=== PATIENT | female | born 1965 | race Two or more races ===

== ENCOUNTER 2020-04-12 07:19 | Outpatient (REF) | payer OTHER, SELFPAY ==
[2020-04-12 08:48] LABS: Hemoglobin 14.4 g/dl (12.0-16.0); Mean Corpuscular Hemoglobin 28.1 pg (27.0-33.0); Mean Corpuscular Volume 87.7 fL (80-98); Mean Platelet Volume 11.4 fL (9.4-12.3); Platelet Count 354 X10*3/uL (160-400); Red Blood Count 5.13 X10*6/uL (4.20-5.50); Red Cell Distribution Width 12.8 % (11.0-16.0); White Blood Count 9.3 X10*3/uL (4.8-10.8)
[2020-04-12 09:23] LABS: Thyroid Stimulating Hormone 5.23 uIU/mL (0.32-4.0)
[2020-04-12 09:37] LABS: Alanine Aminotransferase 12 U/L (0-31); Albumin Level 4.6 g/dL (3.5-5.0); Alkaline Phosphatase 99 U/L (39-117); Anion Gap 17 (12-20); Aspartate Amino Transferase 19 U/L (5-31); Bilirubin Direct < 0.2 mg/dL (0.0-0.5); Bilirubin Total 0.2 mg/dL (0.0-1.0); Blood Urea Nitrogen 14 mg/dL (9-16); Calcium 9.6 mg/dL (8.4-10.2); Carbon Dioxide 23 mmol/L (22-29); Chloride 103 mmol/L (96-108); Cholesterol 284 mg/dL; Estimated Glomerular Filt Rate > 60; Glucose Random 89 mg/dL (60-115); HDL Cholesterol 82 mg/dL; LDL Cholesterol Calculated 187 mg/dl; Potassium 4.5 mmol/L (3.3-5.1); Sodium 138 mmol/L (135-145); Total Protein 8.1 g/dL (6.5-8.0); Triglycerides 76 mg/dL
== END 2020-04-12 07:20 | disposition home or self-care (01) ==
LOC: HO.LAB 07:19
PROVIDERS: PCP Internal Medicine; Visit Provider Internal Medicine
DX: E03.9 Hypothyroidism, unspecified (principal); K21.9 Gastro-esophageal reflux disease without esophagitis
CPT/HCPCS: 36415; 80048; 80061; 80076; 84443; 85027

== ENCOUNTER 2020-06-20 14:47 | Outpatient (REF) | payer OTHER, SELFPAY ==
--- NOTE | ~2020-06-20 | MM_ITS ---
EXAMINATION: MM DIAGNOSTIC DIGITAL BREAST TOMOSYNTHESIS, BILATERAL CLINICAL INFORMATION: Due for yearly. Probable benign asymmetric density 3:00 right breast initially noted in 2019. The lifetime risk of breast cancer based on the Tyrer-Cuzick Model is 8%. COMPARISON: Mammography: 02/23/2019, 05/03/2018, 04/21/2018 (BI-RADS 0); targeted right breast ultrasound 05/03/2018 TECHNIQUE: Digital breast tomosynthesis is performed in both the craniocaudal and mediolateral oblique views along with computer-aided detection (CAD). Synthesized 2D images are generated from the tomosynthesis. FINDINGS: There are scattered areas of fibroglandular density (ACR BI-RADS breast composition Category b). Breast tissue composition borders on heterogeneously dense. Parenchymal pattern is similar to prior exam. There is no developing density or interval mass or architectural abnormality. The asymmetric density 3:00 right breast is less conspicuous. There are no abnormal calcifications. Biopsy clip marker again seen 12:00 right breast. Results are provided to the patient at time of visit by the technologist. MM/MM tomosynthesis diagnostic BI IMPRESSION: No significant changes from prior studies. ASSESSMENT: BI-RADS 2: Benign RECOMMENDATION: Routine annual mammography screening. This patient's information was entered into a reminder system with a target due date for their next mammogram.
== END 2020-06-20 14:48 | disposition home or self-care (01) ==
LOC: HO.MAMMO 14:47
PROVIDERS: PCP Internal Medicine; Visit Provider Internal Medicine
DX: R92.1 Mammographic calcification found on diagnostic imaging of breast (principal)
CPT/HCPCS: 77062; 77066

== ENCOUNTER → 2020-11-25 14:47 | Outpatient (BNVA) | payer OTHER, SELFPAY | PROVIDERS: PCP Internal Medicine; Visit Provider Nurse Practitioner | DX: Z12.11 Encounter for screening for malignant neoplasm of colon (principal) | CPT/HCPCS: Q3014 ==

== ENCOUNTER 2021-02-06 07:57 | Day surgery (SDC) | payer OTHER, SELFPAY ==
--- NOTE | 2021-02-05 11:04 | HO.ANESPROP2 ---
Documented by User: Melissa John NP 02/05/21 11:05 HPI - Anesthesia Eval Consult details Narrative: 55yo F for Colonoscopy (h/o PTSD with SA) [facility] Active Problems Active Problems: All Active Problems (Updated 11/25/20 @ 15:38 by IAIN Tejada) Colon cancer screening (Acute) Generalized anxiety disorder (Acute) Bipolar illness (Acute) Posttraumatic stress disorder (Acute) Screening for cervical cancer (Acute) Screening for colon cancer (Acute) Acquired hypothyroidism (Acute) GERD (gastroesophageal reflux disease) (Acute) Past Medical History Medical History (Updated 11/25/20 @ 15:38 by IAIN Tejada) Acquired hypothyroidism Bipolar illness Generalized anxiety disorder GERD (gastroesophageal reflux disease) Posttraumatic stress disorder Family History Family History Father HIV (human immunodeficiency virus infection) CKD (chronic kidney disease) Substance use disorder Mother Hepatitis C Bilateral cataracts Maternal Grandmother Diabetes CVD (cardiovascular disease) Brother No problems noted. Brother No problems noted. Brother No problems noted. Sister No problems noted. Other Mental health disorder Surgical History Surgical History History of eye surgery History of foot surgery Social History Social History Housing: Condominium Alcohol intake: current Alcohol intake frequency: a few times a month Patient Tobacco Use Status: Former Tobacco user Advance Directives: No Advance Directives Information Provided: Yes service: No Current occupational status: disabled Meds Allergies Allergy/AdvReac Type Severity Reaction Status Date / Time hair dye Allergy Unknown Unknown Verified 11/25/20 15:01 Home Medications Medication Instructions Recorded Confirmed Last Taken Type hydroxyzine pamoate 50 mg capsule 50 mg PO TID 03/31/20 09/02/20 Unknown History oxcarbazepine 300 mg tablet 300 mg PO BID 03/31/20 09/02/20 Unknown History quetiapine 400 mg tablet 400 mg PO BEDTIME 03/31/20 09/02/20 Unknown History quetiapine 50 mg tablet 0 mg PO 03/31/20 09/02/20 Unknown History sertraline 100 mg tablet 0 mg PO 03/31/20 09/02/20 Unknown History lorazepam 1 mg tablet 1 mg PO TID 09/02/20 09/02/20 Unknown History Exam Exam Date and Time: February 05, 2021 1104 Assessment and Plan Assessment Anesthesia Assessment: Chart Reviewed Documented by User: Janak Yeager MD 02/06/21 08:15 [facility] Past Medical History Medical History (Updated 11/25/20 @ 15:38 by IAIN Tejada) Acquired hypothyroidism Bipolar illness Generalized anxiety disorder GERD (gastroesophageal reflux disease) Posttraumatic stress disorder Family History Family History Father HIV (human immunodeficiency virus infection) CKD (chronic kidney disease) Substance use disorder Mother Hepatitis C Bilateral cataracts Maternal Grandmother Diabetes CVD (cardiovascular disease) Brother No problems noted. Brother No problems noted. Brother No problems noted. Sister No problems noted. Other Mental health disorder Family history of problems with anesthesia: No Surgical History Surgical History History of eye surgery History of foot surgery History of Problems with Anesthesia: No Social History [facility] History [facility] Alcohol intake: current Alcohol intake frequency: a few times a month Patient Tobacco Use Status: Former Tobacco user Advance Directives: No Advance Directives Information Provided: Yes service: No Current occupational status: disabled Meds Allergies Allergy/AdvReac Type Severity Reaction Status Date / Time hair dye Allergy Unknown Unknown Verified 11/25/20 15:01 Home Medications Medication Instructions Recorded Confirmed Last Taken Type hydroxyzine pamoate 50 mg capsule 50 mg PO TID 03/31/20 09/02/20 Unknown History oxcarbazepine 300 mg tablet 300 mg PO BID 03/31/20 09/02/20 Unknown History quetiapine 400 mg tablet 400 mg PO BEDTIME 03/31/20 09/02/20 Unknown History quetiapine 50 mg tablet 0 mg PO 03/31/20 09/02/20 Unknown History sertraline 100 mg tablet 0 mg PO 03/31/20 09/02/20 Unknown History lorazepam 1 mg tablet 1 mg PO TID 09/02/20 09/02/20 Unknown History Exam Airway Mallampati Class: II TM Dist: >3cm Neck ROM: Full Assessment and Plan Final Anesthetic Review Family History of Problems with Anesthesia: No History of Problems with Anesthesia: No NPO: Yes ASA Class: II Final Preanesthetic Review: No Changes in Pt Med Stat, Meds/Allgs Chart Reviewed, Consent Obtained/Reviewed and Anes Risks/Benef Reviewed Patient Risk: Intermediate Procedure Risk: Low Anesthetic Plan Anesthetic Plan: MAC: Disposition: Standard PACU
[2021-02-06 08:37] VITALS: BP 124/82; PULSE 96; RESP 16; TEMP 36.4; O2SAT 97; BMI 19.9
[2021-02-06] MEDS: Lactated Ringers 1,000 ML 100 ML IVCONT (08:46)
--- NOTE | 2021-02-06 09:19 | MHC.SHP ---
Pre-Procedural Eval Section A Date of Service: 02/06/21 The patient is an INPATIENT: No The History & Physical has been completed within 30 days and I have reviewed it.: No Section B Chief Complaint: Screening Details of Present Illness: Colon cancer screening Relevant Family History (Specify if Yes): No Relevant Social History: Tobacco Use (Former smoker) Present Medications: see Short Stay Collaborative assessment Medical History: Significant History (Acquired hypothyroidism Bipolar illness Generalized anxiety disorder GERD (gastroesophageal reflux disease) Posttraumatic stress disorder) History of Previous Operations: Relevant previous surgery/procedure and date(s) (History of eye surgery History of foot surgery) Allergies: Allergies Allergy/AdvReac Type Severity Reaction Status Date / Time hair dye Allergy Unknown Unknown Verified 11/25/20 15:01 Review of Systems Sugical H&P ROS: Negative: Constitution, Cardiovascular, Respiratory and Gastrointestinal Exam Surgical H&P Exam: Normal: Heart, Normal: Lungs, Normal: Extremities and Normal: Abdomen Plan Diagnosis/Plan: Unchanged I have reviewed the history and physical and performed a pertinent physical examination on my patient. No changes have occurred unless specified.
--- NOTE | 2021-02-06 09:26 | P.OP_ITS ---
Operative Note Operative Note Date of Service: 02/06/21 Narrative: Pre-op diagnosis:?Colon cancer screening Post-op diagnosis:?other (Colon polyps, diverticulosis) Procedure:? COLONOSCOPY TILL CECUM WITH SNARE POLYPECTOMY Consent: Indications for the procedure and potential complications of bleeding, perforation, reaction to medications and missed diagnosis were discussed with the patient and informed consent was obtained. Instrument: Olympus PCF H 190 L variable stiffness pediatric colonoscope Monitoring: Vital signs and clinical assessment, intermittent blood pressure monitoring, continuous EKG monitoring, Pulse oximetry and Carbon Dioxide monitoring were done throughout the procedure. Colon withdrawl time was 25 minutes. Procedure: The patient was placed in the left lateral decubitis position and pre-procedure medications were administered. After a digital rectal examination of the ano-rectum, the video colonoscope was inserted into the rectum and advanced through the colon to the cecum. The colonoscope was slowly withdrawn in a retrograde panoramic fashion and the colon mucosa was carefully examined including a retroflexed view of the rectum. Findings and interventions are described below. Procedure Difficulty: Without difficulty Findings: Terminal Ileum: Not evaluated Cecum:? An 8 to 10 mm sessile polyp adjacent to the appendicular orifice - removed with a cold snare. Ascending Colon:? Normal Transverse Colon:? A 5-6 mm sessile polyp removed with a cold snare. A 12-15 mm sessile polyp removed with hot snare. Descending Colon:? Moderate diverticulosis Sigmoid Colon:? Moderate diverticulosis Rectum:? Normal Ano-rectum:? Normal Colon preparation:? Good after copious irrigation and fair in the right colon with some adherent stools Impression and Post Procedure Diagnosis: Colonoscopy Findings: Three small to medium sized polyps removed Moderate diverticulosis seen in the left colon Plan: Await pathology results Patient has an appointment on 02/19/21 in the GI [facility] with? Nohelia Pires NP. Repeat Colonoscopy interval based on path results - in 3 years if polyps are adenomatous and due to fair prep in the right colon Above findings were reviewed with the patient and colon polyps and diverticulosis handouts were given in the discharge area Surgeon:?Steve Forde MD Anesthesia:?GARCIA (Yahaira Holcomb CRNA) Was an Methods Time Analyst used for this Procedure?:?Yes Methods Time Analyst:?Caridad Still Estimated blood loss (mL):?0 Pathology:?other (A. cecal polyp? B. transverse colon polyps (2)) Condition:?stable Disposition:?PACU
[2021-02-06 10:09] VITALS: BP 98/59; PULSE 82; RESP 18; TEMP 36.8; O2SAT 99
[2021-02-06 10:24] VITALS: BP 109/66; PULSE 94; RESP 18; TEMP 36.8; O2SAT 100
== END 2021-02-06 11:28 | disposition home or self-care (01) ==
PROVIDERS: PCP Internal Medicine; Visit Provider Internal Medicine Gastroenterology
PROC: 0DJD8ZZ Inspection of Lower Intestinal Tract, Via Natural or Artificial Opening Endoscopic (ICD-10-PCS; CPT 45378; principal; 2021-02-06 09:00)
DX: Z12.11 Encounter for screening for malignant neoplasm of colon (principal); D12.0 Benign neoplasm of cecum; D12.3 Benign neoplasm of transverse colon; K57.30 Diverticulosis of large intestine without perforation or abscess without bleeding; E03.9 Hypothyroidism, unspecified; F31.9 Bipolar disorder, unspecified; F43.10 Post-traumatic stress disorder, unspecified; F41.1 Generalized anxiety disorder; Z87.891 Personal history of nicotine dependence
CPT/HCPCS: 45385; 88305

== ENCOUNTER 2022-02-01 11:30 | Outpatient (REF) | payer OTHER, SELFPAY ==
[2022-02-01 12:39] LABS: Hematocrit 39.2 % (37.0-47.0); Hemoglobin 12.9 g/dl (12.0-16.0); Mean Corpuscular HGB Conc 32.9 g/dl (31.0-35.0); Mean Corpuscular Hemoglobin 29.1 pg (27.0-33.0); Mean Corpuscular Volume 88.3 fL (80.0-98.0); Mean Platelet Volume 10.6 fL (9.4-12.3); Platelet Count 330 X10*3/uL (160-400); Red Blood Count 4.44 X10*6/uL (4.20-5.50); Red Cell Distribution Width 13.3 % (11.0-16.0); White Blood Count 9.4 X10*3/uL (4.8-10.8)
[2022-02-01 13:25] LABS: Alanine Aminotransferase 12 U/L (0-31); Albumin Level 4.5 g/dL (3.5-5.0); Alkaline Phosphatase 105 U/L (39-117); Anion Gap 13 (12-20); Aspartate Amino Transferase 19 U/L (5-31); Bilirubin Direct < 0.2 mg/dL (0.0-0.5); Bilirubin Total 0.2 mg/dL (0.0-1.0); Blood Urea Nitrogen 13 mg/dL (9-16); Calcium 9.5 mg/dL (8.4-10.2); Carbon Dioxide 26 mmol/L (22-29); Chloride 106 mmol/L (96-108); Cholesterol 250 mg/dL; Estimated Glomerular Filt Rate > 60; Glucose Random 82 mg/dL (60-115); HDL Cholesterol 103 mg/dL; LDL Cholesterol Calculated 132 mg/dl; Potassium 4.1 mmol/L (3.3-5.1); Sodium 141 mmol/L (135-145); Total Protein 7.6 g/dL (6.5-8.0); Triglycerides 77 mg/dL
[2022-02-01 13:53] LABS: Thyroid Stimulating Hormone 9.91 uIU/mL (0.32-4.0)
== END 2022-02-01 11:31 | disposition home or self-care (01) ==
LOC: HO.LAB 11:30
PROVIDERS: PCP Internal Medicine; Visit Provider Internal Medicine
DX: E03.9 Hypothyroidism, unspecified (principal); F31.9 Bipolar disorder, unspecified
CPT/HCPCS: 36415; 80048; 80061; 80076; 84443; 85027

== ENCOUNTER 2022-05-31 13:47 | Outpatient (REF) | payer OTHER, SELFPAY ==
--- NOTE | ~2022-05-31 | MM_ITS ---
EXAMINATION: MM SCREENING DIGITAL BREAST TOMOSYNTHESIS, BILATERAL CLINICAL INFORMATION: Screening. Asymptomatic. The lifetime risk of breast cancer based on the Tyrer-Cuzick Model is 10%. COMPARISON: Mammography: 06/20/2020, 02/23/2019, 05/03/2018, right breast ultrasound 05/03/2018 TECHNIQUE: Digital breast tomosynthesis is performed in both the craniocaudal and mediolateral oblique views along with computer-aided detection (CAD). Synthesized 2D images are generated from the tomosynthesis. FINDINGS: There are scattered areas of fibroglandular density (ACR BI-RADS breast composition Category b). There are scattered bilateral parenchymal asymmetries similar to prior studies. Oval asymmetry mid central 3:00 right breast is similar to 2019. Neither breast shows developing density or interval architectural abnormality. No abnormal calcifications. There are bilateral vascular calcifications. Biopsy clip marker again noted central upper outer right breast. The axilla are unremarkable. The skin contours are smooth. MM/MM tomosynthesis screening BI IMPRESSION: No significant changes from prior studies. ASSESSMENT: BI-RADS 2: Benign RECOMMENDATION: Routine annual mammography screening. This patient's information was entered into a reminder system with a target due date for their next mammogram.
== END 2022-05-31 13:48 | disposition home or self-care (01) ==
LOC: HO.MAMMO 13:47
PROVIDERS: PCP Internal Medicine; Visit Provider Internal Medicine
DX: Z12.31 Encounter for screening mammogram for malignant neoplasm of breast (principal)
CPT/HCPCS: 77063; 77067

== ENCOUNTER 2022-10-05 22:33 | Inpatient (IN) | payer OTHER, SELFPAY ==
--- NOTE | ~2022-10-05 | XR_ITS ---
EXAMINATION: XR CHEST CLINICAL INFORMATION: Altered mental status. COMPARISON: Chest radiograph 09/07/2016. TECHNIQUE: Frontal view of the chest was obtained. FINDINGS: Normal appearance of the cardiomediastinal silhouette. No focal airspace opacity, pleural effusion or pneumothorax. No acute osseous findings. The visualized upper abdomen is within normal limits. XR/XR chest 1V IMPRESSION: No acute cardiopulmonary findings.
--- NOTE | ~2022-10-05 | CT_ITS ---
EXAMINATION: CT CHEST WITHOUT CONTRAST CLINICAL INFORMATION: Hypoxia COMPARISON: None available. TECHNIQUE: Multidetector volumetric CT imaging of the chest was done. Axial MIP volume rendering provided. Sagittal and coronal reformatted images were obtained. This CT examination was performed using dose optimization techniques as appropriate, variously including the following: *Automated exposure control *Adjustment of mA and/or kV according to patient size (this includes techniques or standardized protocols for targeted exams where dose is matched to indication/reason for exam; i.e. extremities or head) *Use of iterative reconstruction technique DLP: 133 mGy-cm FINDINGS: LUNGS: Dense dependent consolidation in the lower lobes bilaterally with surrounding groundglass opacities. There are a few patchy nodular opacities posterior lingula and dependent aspects of the upper lobes bilaterally following a centrilobular distribution. Findings suggestive of aspiration bronchiolitis and pneumonia (lower lobes). There is a 5 mm nodule in the right upper lobe laterally as seen on series 5, image 103 which is unrelated to this infectious process. MEDIASTINUM: Normal heart size. Trace pericardial effusion. Great vessels normal caliber. Coronary calcifications present. No mediastinal or hilar lymphadenopathy. CORONARY ARTERY CALCIFICATION: Present. PLEURA: There is no pleural effusion. No pleural mass or thickening. AXILLA: No lymphadenopathy. UPPER ABDOMEN: Unremarkable. OSSEOUS STRUCTURES: No acute or suspicious osseous abnormality. CT/CT chest wo IV con IMPRESSION: * Findings compatible with aspiration bronchiolitis / pneumonia as described. * There is a 5 mm nodule in the right upper lobe laterally which is unrelated to the infectious process. Per the 2017 revised Fleischner Society guidelines, no routine follow up is necessarily required in low-risk patients, and consideration of 12-month followup CT is recommended for patients at high-risk for the development of pulmonary neoplasm.
[2022-10-05 22:52] VITALS: BP 111/66; BP 126/70; PULSE 112; RESP 26; TEMP 32.4; O2SAT 100; O2SAT 90; BMI 20.1
--- NOTE | 2022-10-05 23:15 | ECG_ITS ---
Test Reason : OD Blood Pressure : / mmHG Vent. Rate : 109 BPM Atrial Rate : 109 BPM P-R Int : 094 ms QRS Dur : 066 ms QT Int : 416 ms P-R-T Axes : 000 109 188 degrees QTc Int : 560 ms Artifact in tracing Sinus tachycardia Rightward axis Nonspecific ST and T wave abnormality Abnormal ECG When compared with ECG of 11-JUN-2017 06:19, QRS axis Shifted right Nonspecific T wave abnormality, worse in Anterolateral leads QT difficult to assess due to artifact Referred By: Tequila Stephen Electronically Signed By:CADEN ESTEBAN
--- NOTE | 2022-10-05 23:17 | ED.GENADULT ---
HPI - General Adult General Chief complaint: Overdose Stated complaint: Overdose Time Seen by Provider: 10/05/22 22:34 Source: EMS Mode of arrival: EMS Limitations: altered mental status History of Present Illness HPI narrative: patient comes emergency room via ambulance after an overdose. According to EMS, the patient's boyfriend noted that the patient was unresponsive at the neighbor's house, he carried her back home. At home, he gave her 4 mg of Narcan, then called EMS. EMS reports that the patient's oxygen saturation has been in the high 80s/ low 90s. in the ambulance per EMS, patient started posturing upper extremities and neck, she was given 2 mg IM of Versed. On arrival to the ED, patient's oxygen saturation in the mid 60s on 4 L of oxygen, patient was given 4 mg intranasal Narcan, and was started on OxyMask, oxygen saturation improved to 100%. Patient still altered, unable to give any history. Related Data Home Medications Medication Instructions Recorded Confirmed hydroxyzine pamoate 50 mg capsule 50 mg PO TID 03/31/20 10/06/22 oxcarbazepine 300 mg tablet 300 mg PO BID 03/31/20 10/06/22 quetiapine 400 mg tablet 400 mg PO BEDTIME 03/31/20 10/06/22 quetiapine 50 mg tablet (Seroquel) 50 mg PO DAILY 03/31/20 10/06/22 sertraline 100 mg tablet (Zoloft) 100 mg PO DAILY 03/31/20 10/06/22 lorazepam 1 mg tablet 1 mg PO TID 09/02/20 10/06/22 Previous Rx's Medication Instructions Recorded commode #1 ea 04/15/21 gabapentin 100 mg capsule 100 mg PO BID #180 caps 03/28/22 levothyroxine 75 mcg tablet 75 mcg PO DAILY #90 tabs 03/28/22 omeprazole 20 mg capsule,delayed 20 mg PO DAILY #90 caps 03/28/22 release Allergies Allergy/AdvReac Type Severity Reaction Status Date / Time hair dye Allergy Unknown Unknown Verified 10/29/21 10:57 Review of Systems Review of Systems: Yes Unobtainable due to mental status PMFSH Past Medical History Medical History Acquired hypothyroidism Bipolar illness Generalized anxiety disorder GERD (gastroesophageal reflux disease) Posttraumatic stress disorder Surgical History History of eye surgery History of foot surgery Family History Family History Father HIV (human immunodeficiency virus infection) CKD (chronic kidney disease) Substance use disorder Mother Hepatitis C Bilateral cataracts Maternal Grandmother Diabetes CVD (cardiovascular disease) Brother No problems noted. Brother No problems noted. Brother No problems noted. Sister No problems noted. Other Mental health disorder Social History Social History Housing: Condominium Alcohol intake: current Alcohol intake frequency: a few times a week Patient Tobacco Use Status: Former Tobacco user Quit Date: quit 13 years ago Smoked in Last 30 Days: Yes e-Cigarette/Vaping Use: Never Used Second Hand Smoke Exposure: No Use of substances other than those prescribed or required for medical reasons: Yes Substance Use Type: Crack/Cocaine, Heroin and Marijuana Advance Directives: No Advance Directives Information Provided: No Patient : No service: No Current occupational status: disabled Cognitive needs: Yes (walker) Hearing needs: No Vision needs: No Physical Exam ED Vital Signs: Vital Signs - 24 hr 10/05/22 22:52 10/05/22 23:52 10/06/22 00:21 Temperature 90.4 F L 96.1 F L 97.2 F Pulse Rate 112 H 100 103 H Respiratory Rate 26 H 20 20 Blood Pressure 111/66 117/80 106/69 Pulse Oximetry 100 100 93 Oxygen Delivery Method Oxymask Oxymask Oxymask Oxygen Flow Rate 10 10 10/06/22 01:53 10/06/22 02:10 10/06/22 04:00 Temperature 98.1 F 98.1 F 97.9 F Pulse Rate 114 H 103 H 99 Respiratory Rate 20 16 18 Blood Pressure 105/72 103/74 93/66 Pulse Oximetry 93 91 L 93 Oxygen Delivery Method Room Air Nasal Cannula Nasal Cannula Oxygen Flow Rate 4 4 4 10/06/22 03:32 10/06/22 02:36 10/06/22 06:00 Temperature 98.1 F 98.2 F 98.8 F Pulse Rate 105 H 103 H 100 Respiratory Rate 18 17 18 Blood Pressure 106/77 99/71 119/86 Pulse Oximetry 92 92 94 Oxygen Delivery Method Nasal Cannula Nasal Cannula Nasal Cannula Oxygen Flow Rate 5 5 4 BMI result Body Mass Index 20.1 Const Other: Appearance: Alert. Moaning and screaming, altered Eyes: Pupils equal, round and reactive to light. ENT: Pharynx normal. Neck: Normal inspection. Neck supple. No lymph nodes noted. No crepitus CVS: Normal heart rate and rhythm. Pulses normal. Normal S1 and S2 Respiratory: No respiratory distress. Breath sounds normal. No Wheezing. No rales Abdomen: Soft and nontender. No rigidity. No distention. Skin: cold to touch Extremities: No lower extremity edema. No Lacerations. No Rash Neuro: moving all extremities Psych: altered, agitated, screaming Course Course Course Narrative: - it was noted that the patient's rectal temperature is 90.4 degrees F. Patient is now on a Víctor Hugger - all of patient's labs pending Medications Administered Discontinued Medications Generic Name Dose Route Start Last Admin Trade Name Lloydq PRN Reason Stop Dose Admin Sodium Chloride 2,000 mls @ 999 mls/hr 10/05/22 23:15 10/06/22 01:40 Ns IVCONT 10/06/22 01:15 Infused .Q2H1M ONE Infusion Piperacillin Sod/Tazobactam 50 mls @ 100 mls/hr 10/05/22 23:53 10/06/22 00:45 Sod 3.375 gm/ Sodium Chloride IV 10/06/22 00:22 Infused ONCE ONE Infusion Sodium Chloride 1,000 mls @ 999 mls/hr 10/06/22 01:23 10/06/22 02:35 Ns IVCONT 10/06/22 02:23 Infused .Q1H1M ONE Infusion Ondansetron HCl 4 mg 10/05/22 23:23 10/05/22 23:42 Ondansetron Hcl 4 Mg/2 Ml Vial IVPUSH 10/05/22 23:24 4 mg ONCE ONE Administration Medical Decision Making Medical Decision Making [facility] Narrative: patient was giving a total of 8 mg of Narcan and 2 mg IM of Versed. - Patient is more alert, awake, - at 11 53, patient's lab results became available, patient's lactic acid is 11. 5, patient's white blood cell count is 18. there is no obvious source of infection. patient is empirically being treated with IV fluids and Zosyn. It is possible the patient may have had as seizure? it is possible the patient was hypoxic for a prolonged period of time before EMS arrived? troponin elevation likely secondary to hypoxia - Patient came in hypothermic, rectal temperature 90.4. patient's clothes were wet, likely causing hypothermia. my interpretation of EKG: Sinus tachycardia, heart rate 109, no ST segment depression or elevation, no T-wave inversion, QTC 560. Poor quality EKG, patient shivering -patient's troponin 2 nearly doubled to 258.4. Patient has no chest pain. This is likely from demand ischemia from patient being hypoxic due to the overdose -similarly, elevated lactic acid likely secondary to being hypoxic, with IV fluids, patient's lactic acid returned to normal, sepsis not suspected. -we were able to wean the patient off the OxyMask, now on 2 L nasal cannula. -discussed the patient with Dr. Dickinson, patient is saturating 90% on 4 L while sleeping. Patient is still fairly somnolent. We will wait couple more hours until the patient is more awak. If patient is hypoxic while awake, we will admit the patient. Otherwise, we will allow the patient to metabolize to freedom and then discharged. -patient fully awake, states this was an accident, denies suicidal homicidal ideation. -while fully awake, patient's oxygen saturation is 85% on room air. Patient is 4 L of oxygen to keep an O2 of 95%. -I discussed this with Dr. Dikcinson, it may be possible that patient aspirated although chest x-ray was negative. We will get a CT scan of the chest and admit the patient 07:50: CT scan of the chest shows possible aspiration pneumonia. Patient has already been treated with at least 30 mL/kilograms and Zosyn. Differential Diagnosis Differential Diagnoses: The differential diagnosis associated with the presentation includes ( Drug overdose, hypoxia, infection) Admission/Observation Consideration of admission/observation: Escalation of care including admission/observation considered ( patient's labs are significantly elevated, lactic acid, white blood cell count, no source of infection, patient being treated empirically with antibiotics, admission has been considered) Consult Healthcare Provider Management of the patient was discussed with: Hospitalist Lab Data MDM Lab Attestation statement: I reviewed the patient's lab results. 10/06/22 00:14 10/06/22 00:14 Labs: Lab Results 10/05/22 10/05/22 10/05/22 Range/Units 23:30 23:34 23:34 WBC (4.8-10.8) X10*3/uL RBC (4.20-5.50) X10*6/uL Hgb (12.0-16.0) g/dl Hct (37.0-47.0) % MCV (80.0-98.0) fL MCH (27.0-33.0) pg MCHC (31.0-35.0) g/dl RDW (11.0-16.0) % Plt Count (160-400) X10*3/uL MPV (9.4-12.3) fL Immature Gran % (Auto) (0.0-0.4) % Neut % (Auto) (45-73) % Lymph % (Auto) (20-40) % [place] % (Auto) (2-11) % Eos % (Auto) (0-4) % Baso % (Auto) (0-2) % Lymph # (Auto) (1.2-4.9) X10*3/uL [place] # (Auto) (0.1-1.2) X10*3/uL Eos # (Auto) (0.0-0.4) X10*3/uL Baso # (Auto) (0.0-0.2) X10*3/uL Abs Immat Gran (auto) (0.00-0.03) X10*3/uL Absolute Neuts (auto) (2.0-8.3) x10*3/uL Absolute Nucleated RBC (0.0-0.012) X10*3/uL Nucleated RBC % (auto) (0.0-0.2) /100WBC PT (11.1-13.3) SEC INR (0.9-1.1) VBG pH (7.32-7.43) VBG pCO2 mmHg VBG pO2 mmHg VBG HCO3 (22-26) mmol/L VBG O2 Saturation % VBG Base Excess mmol/L Sodium (135-145) mmol/L Potassium (3.3-5.1) mmol/L Chloride (96-108) mmol/L Carbon Dioxide (22-29) mmol/L Anion Gap (12-20) BUN (9-16) mg/dL Creatinine (0.5-1.4) mg/dL Estim Creat Clear Calc Estimated GFR Random Glucose (60-115) mg/dL Lactic Acid 11.5 H* (0.5-2.0) mmol/L Lactic Acid F/U @ 2Hr (0.5-2.0) mmol/L Calcium (8.4-10.2) mg/dL Magnesium (1.6-2.6) mg/dL Total Bilirubin (0.0-1.0) mg/dL Direct Bilirubin (0.0-0.5) mg/dL AST (5-31) U/L ALT (0-31) U/L Alkaline Phosphatase (39-117) U/L Ammonia (13-55) umol/L Total Creatine Kinase (26-140) U/L Troponin I High Sens (<3.5-17.0) ng/L Total Protein (6.5-8.0) g/dL Albumin (3.5-5.0) g/dL Lipase (8-78) U/L TSH (0.32-4.0) uIU/mL Urine Color Yellow Urine Appearance Clear Urine pH 5.0 (5.0-9.0) Ur Specific [place] 1.010 (1.005-1.025) Urine Protein 30 (1+) H (Neg-Trace) mg/dL Urine Glucose (UA) >=1000 H (Negative) mg/dL Urine Ketones Negative (Negative) mg/dL Urine Blood Trace H (Negative) Urine Nitrite Negative (Negative) Ur Leukocyte Esterase Negative (Negative) Urine RBC 0-2 (0-2) /HPF Urine WBC 0-5 (0-5) /HPF Ur Squamous Epith Cells 0-2 (0-2) /HPF Urine Bacteria None Seen (None Seen) Hyaline Casts 3-5 (0-2) /LPF Salicylates (15-30) mg/dL Urine Opiates Screen Not Detected (Not Detect) Urine Fentanyl Screen POSITIVE H (Not Detect) Acetaminophen (<30) mcg/mL Ur Barbiturates Screen Not Detected (Not Detect) Ur Phencyclidine Scrn Not Detected (Not Detect) Ur Amphetamines Screen Not Detected (Not Detect) U Benzodiazepines Scrn POSITIVE H (Not Detect) Urine Cocaine Screen Not Detected (Not Detect) U Marijuana (THC) Screen POSITIVE H (Not Detect) Ethyl Alcohol mg/dL COVID-19 ([facility]) (Negative) COVID-19 Clin Com 10/06/22 10/06/22 10/06/22 Range/Units 00:14 00:14 00:14 WBC 18.0 H (4.8-10.8) X10*3/uL RBC 4.49 (4.20-5.50) X10*6/uL Hgb 13.1 (12.0-16.0) g/dl Hct 41.9 (37.0-47.0) % MCV 93.3 (80.0-98.0) fL MCH 29.2 (27.0-33.0) pg MCHC 31.3 (31.0-35.0) g/dl RDW 13.7 (11.0-16.0) % Plt Count 350 (160-400) X10*3/uL MPV 10.2 (9.4-12.3) fL Immature Gran % (Auto) 1.8 H (0.0-0.4) % Neut % (Auto) 86.4 H (45-73) % Lymph % (Auto) 6.1 L (20-40) % [place] % (Auto) 5.2 (2-11) % Eos % (Auto) 0.1 (0-4) % Baso % (Auto) 0.4 (0-2) % Lymph # (Auto) 1.1 L (1.2-4.9) X10*3/uL [place] # (Auto) 0.9 (0.1-1.2) X10*3/uL Eos # (Auto) 0.0 (0.0-0.4) X10*3/uL Baso # (Auto) 0.1 (0.0-0.2) X10*3/uL Abs Immat Gran (auto) 0.33 H (0.00-0.03) X10*3/uL Absolute Neuts (auto) 15.5 H (2.0-8.3) x10*3/uL Absolute Nucleated RBC 0.000 (0.0-0.012) X10*3/uL Nucleated RBC % (auto) 0.0 (0.0-0.2) /100WBC PT (11.1-13.3) SEC INR (0.9-1.1) VBG pH (7.32-7.43) VBG pCO2 mmHg VBG pO2 mmHg VBG HCO3 (22-26) mmol/L VBG O2 Saturation % VBG Base Excess mmol/L Sodium 143 (135-145) mmol/L Potassium 3.7 (3.3-5.1) mmol/L Chloride 110 H (96-108) mmol/L Carbon Dioxide 16 L (22-29) mmol/L Anion Gap 21 H (12-20) BUN 14 (9-16) mg/dL Creatinine 0.90 (0.5-1.4) mg/dL Estim Creat Clear Calc 51.3 Estimated GFR > 60 Random Glucose 137 H (60-115) mg/dL Lactic Acid (0.5-2.0) mmol/L Lactic Acid F/U @ 2Hr (0.5-2.0) mmol/L Calcium 8.7 D (8.4-10.2) mg/dL Magnesium 2.1 (1.6-2.6) mg/dL Total Bilirubin 0.1 (0.0-1.0) mg/dL Direct Bilirubin < 0.2 (0.0-0.5) mg/dL AST 28 (5-31) U/L ALT 16 (0-31) U/L Alkaline Phosphatase 111 (39-117) U/L Ammonia (13-55) umol/L Total Creatine Kinase 144 H (26-140) U/L Troponin I High Sens (<3.5-17.0) ng/L Total Protein 7.6 (6.5-8.0) g/dL Albumin 4.1 (3.5-5.0) g/dL Lipase 22 (8-78) U/L TSH 3.76 (0.32-4.0) uIU/mL Urine Color Urine Appearance Urine pH (5.0-9.0) Ur Specific [place] (1.005-1.025) Urine Protein (Neg-Trace) mg/dL Urine Glucose (UA) (Negative) mg/dL Urine Ketones (Negative) mg/dL Urine Blood (Negative) Urine Nitrite (Negative) Ur Leukocyte Esterase (Negative) Urine RBC (0-2) /HPF Urine WBC (0-5) /HPF Ur Squamous Epith Cells (0-2) /HPF Urine Bacteria (None Seen) Hyaline Casts (0-2) /LPF Salicylates (15-30) mg/dL Urine Opiates Screen (Not Detect) Urine Fentanyl Screen (Not Detect) Acetaminophen (<30) mcg/mL Ur Barbiturates Screen (Not Detect) Ur Phencyclidine Scrn (Not Detect) Ur Amphetamines Screen (Not Detect) U Benzodiazepines Scrn (Not Detect) Urine Cocaine Screen (Not Detect) U Marijuana (THC) Screen (Not Detect) Ethyl Alcohol mg/dL COVID-19 ([facility]) Negative (Negative) COVID-19 Clin Com See Note 10/06/22 10/06/22 10/06/22 Range/Units 00:14 00:14 00:14 WBC (4.8-10.8) X10*3/uL RBC (4.20-5.50) X10*6/uL Hgb (12.0-16.0) g/dl Hct (37.0-47.0) % MCV (80.0-98.0) fL MCH (27.0-33.0) pg MCHC (31.0-35.0) g/dl RDW (11.0-16.0) % Plt Count (160-400) X10*3/uL MPV (9.4-12.3) fL Immature Gran % (Auto) (0.0-0.4) % Neut % (Auto) (45-73) % Lymph % (Auto) (20-40) % [place] % (Auto) (2-11) % Eos % (Auto) (0-4) % Baso % (Auto) (0-2) % Lymph # (Auto) (1.2-4.9) X10*3/uL [place] # (Auto) (0.1-1.2) X10*3/uL Eos # (Auto) (0.0-0.4) X10*3/uL Baso # (Auto) (0.0-0.2) X10*3/uL Abs Immat Gran (auto) (0.00-0.03) X10*3/uL Absolute Neuts (auto) (2.0-8.3) x10*3/uL Absolute Nucleated RBC (0.0-0.012) X10*3/uL Nucleated RBC % (auto) (0.0-0.2) /100WBC PT 10.6 L (11.1-13.3) SEC INR 0.9 (0.9-1.1) VBG pH (7.32-7.43) VBG pCO2 mmHg VBG pO2 mmHg VBG HCO3 (22-26) mmol/L VBG O2 Saturation % VBG Base Excess mmol/L Sodium (135-145) mmol/L Potassium (3.3-5.1) mmol/L Chloride (96-108) mmol/L Carbon Dioxide (22-29) mmol/L Anion Gap (12-20) BUN (9-16) mg/dL Creatinine (0.5-1.4) mg/dL Estim Creat Clear Calc Estimated GFR Random Glucose (60-115) mg/dL Lactic Acid (0.5-2.0) mmol/L Lactic Acid F/U @ 2Hr (0.5-2.0) mmol/L Calcium (8.4-10.2) mg/dL Magnesium (1.6-2.6) mg/dL Total Bilirubin (0.0-1.0) mg/dL Direct Bilirubin (0.0-0.5) mg/dL AST (5-31) U/L ALT (0-31) U/L Alkaline Phosphatase (39-117) U/L Ammonia 40 (13-55) umol/L Total Creatine Kinase (26-140) U/L Troponin I High Sens (<3.5-17.0) ng/L Total Protein (6.5-8.0) g/dL Albumin (3.5-5.0) g/dL Lipase (8-78) U/L TSH (0.32-4.0) uIU/mL Urine Color Urine Appearance Urine pH (5.0-9.0) Ur Specific [place] (1.005-1.025) Urine Protein (Neg-Trace) mg/dL Urine Glucose (UA) (Negative) mg/dL Urine Ketones (Negative) mg/dL Urine Blood (Negative) Urine Nitrite (Negative) Ur Leukocyte Esterase (Negative) Urine RBC (0-2) /HPF Urine WBC (0-5) /HPF Ur Squamous Epith Cells (0-2) /HPF Urine Bacteria (None Seen) Hyaline Casts (0-2) /LPF Salicylates < 5.0 L (15-30) mg/dL Urine Opiates Screen (Not Detect) Urine Fentanyl Screen (Not Detect) Acetaminophen < 17 (<30) mcg/mL Ur Barbiturates Screen (Not Detect) Ur Phencyclidine Scrn (Not Detect) Ur Amphetamines Screen (Not Detect) U Benzodiazepines Scrn (Not Detect) Urine Cocaine Screen (Not Detect) U Marijuana (THC) Screen (Not Detect) Ethyl Alcohol mg/dL COVID-19 ([facility]) (Negative) COVID-19 Clin Com 10/06/22 10/06/22 10/06/22 Range/Units 00:18 00:18 00:19 WBC (4.8-10.8) X10*3/uL RBC (4.20-5.50) X10*6/uL Hgb (12.0-16.0) g/dl Hct (37.0-47.0) % MCV (80.0-98.0) fL MCH (27.0-33.0) pg MCHC (31.0-35.0) g/dl RDW (11.0-16.0) % Plt Count (160-400) X10*3/uL MPV (9.4-12.3) fL Immature Gran % (Auto) (0.0-0.4) % Neut % (Auto) (45-73) % Lymph % (Auto) (20-40) % [place] % (Auto) (2-11) % Eos % (Auto) (0-4) % Baso % (Auto) (0-2) % Lymph # (Auto) (1.2-4.9) X10*3/uL [place] # (Auto) (0.1-1.2) X10*3/uL Eos # (Auto) (0.0-0.4) X10*3/uL Baso # (Auto) (0.0-0.2) X10*3/uL Abs Immat Gran (auto) (0.00-0.03) X10*3/uL Absolute Neuts (auto) (2.0-8.3) x10*3/uL Absolute Nucleated RBC (0.0-0.012) X10*3/uL Nucleated RBC % (auto) (0.0-0.2) /100WBC PT (11.1-13.3) SEC INR (0.9-1.1) VBG pH 7.21 L (7.32-7.43) VBG pCO2 41 mmHg VBG pO2 48 mmHg VBG HCO3 17 L (22-26) mmol/L VBG O2 Saturation 76.0 % VBG Base Excess -10.3 mmol/L Sodium (135-145) mmol/L Potassium (3.3-5.1) mmol/L Chloride (96-108) mmol/L Carbon Dioxide (22-29) mmol/L Anion Gap (12-20) BUN (9-16) mg/dL Creatinine (0.5-1.4) mg/dL Estim Creat Clear Calc Estimated GFR Random Glucose (60-115) mg/dL Lactic Acid (0.5-2.0) mmol/L Lactic Acid F/U @ 2Hr (0.5-2.0) mmol/L Calcium (8.4-10.2) mg/dL Magnesium (1.6-2.6) mg/dL Total Bilirubin (0.0-1.0) mg/dL Direct Bilirubin (0.0-0.5) mg/dL AST (5-31) U/L ALT (0-31) U/L Alkaline Phosphatase (39-117) U/L Ammonia (13-55) umol/L Total Creatine Kinase (26-140) U/L Troponin I High Sens 135.0 H* (<3.5-17.0) ng/L Total Protein (6.5-8.0) g/dL Albumin (3.5-5.0) g/dL Lipase (8-78) U/L TSH (0.32-4.0) uIU/mL Urine Color Urine Appearance Urine pH (5.0-9.0) Ur Specific [place] (1.005-1.025) Urine Protein (Neg-Trace) mg/dL Urine Glucose (UA) (Negative) mg/dL Urine Ketones (Negative) mg/dL Urine Blood (Negative) Urine Nitrite (Negative) Ur Leukocyte Esterase (Negative) Urine RBC (0-2) /HPF Urine WBC (0-5) /HPF Ur Squamous Epith Cells (0-2) /HPF Urine Bacteria (None Seen) Hyaline Casts (0-2) /LPF Salicylates (15-30) mg/dL Urine Opiates Screen (Not Detect) Urine Fentanyl Screen (Not Detect) Acetaminophen (<30) mcg/mL Ur Barbiturates Screen (Not Detect) Ur Phencyclidine Scrn (Not Detect) Ur Amphetamines Screen (Not Detect) U Benzodiazepines Scrn (Not Detect) Urine Cocaine Screen (Not Detect) U Marijuana (THC) Screen (Not Detect) Ethyl Alcohol 12 mg/dL COVID-19 ([facility]) (Negative) COVID-19 Clin Com 10/06/22 10/06/22 10/06/22 Range/Units 02:07 02:07 04:47 WBC (4.8-10.8) X10*3/uL RBC (4.20-5.50) X10*6/uL Hgb (12.0-16.0) g/dl Hct (37.0-47.0) % MCV (80.0-98.0) fL MCH (27.0-33.0) pg MCHC (31.0-35.0) g/dl RDW (11.0-16.0) % Plt Count (160-400) X10*3/uL MPV (9.4-12.3) fL Immature Gran % (Auto) (0.0-0.4) % Neut % (Auto) (45-73) % Lymph % (Auto) (20-40) % [place] % (Auto) (2-11) % Eos % (Auto) (0-4) % Baso % (Auto) (0-2) % Lymph # (Auto) (1.2-4.9) X10*3/uL [place] # (Auto) (0.1-1.2) X10*3/uL Eos # (Auto) (0.0-0.4) X10*3/uL Baso # (Auto) (0.0-0.2) X10*3/uL Abs Immat Gran (auto) (0.00-0.03) X10*3/uL Absolute Neuts (auto) (2.0-8.3) x10*3/uL Absolute Nucleated RBC (0.0-0.012) X10*3/uL Nucleated RBC % (auto) (0.0-0.2) /100WBC PT (11.1-13.3) SEC INR (0.9-1.1) VBG pH (7.32-7.43) VBG pCO2 mmHg VBG pO2 mmHg VBG HCO3 (22-26) mmol/L VBG O2 Saturation % VBG Base Excess mmol/L Sodium (135-145) mmol/L Potassium (3.3-5.1) mmol/L Chloride (96-108) mmol/L Carbon Dioxide (22-29) mmol/L Anion Gap (12-20) BUN (9-16) mg/dL Creatinine (0.5-1.4) mg/dL Estim Creat Clear Calc Estimated GFR Random Glucose (60-115) mg/dL Lactic Acid (0.5-2.0) mmol/L Lactic Acid F/U @ 2Hr 2.0 (0.5-2.0) mmol/L Calcium (8.4-10.2) mg/dL Magnesium (1.6-2.6) mg/dL Total Bilirubin (0.0-1.0) mg/dL Direct Bilirubin (0.0-0.5) mg/dL AST (5-31) U/L ALT (0-31) U/L Alkaline Phosphatase (39-117) U/L Ammonia (13-55) umol/L Total Creatine Kinase (26-140) U/L Troponin I High Sens 258.4 H* D 294.5 H* (<3.5-17.0) ng/L Total Protein (6.5-8.0) g/dL Albumin (3.5-5.0) g/dL Lipase (8-78) U/L TSH (0.32-4.0) uIU/mL Urine Color Urine Appearance Urine pH (5.0-9.0) Ur Specific [place] (1.005-1.025) Urine Protein (Neg-Trace) mg/dL Urine Glucose (UA) (Negative) mg/dL Urine Ketones (Negative) mg/dL Urine Blood (Negative) Urine Nitrite (Negative) Ur Leukocyte Esterase (Negative) Urine RBC (0-2) /HPF Urine WBC (0-5) /HPF Ur Squamous Epith Cells (0-2) /HPF Urine Bacteria (None Seen) Hyaline Casts (0-2) /LPF Salicylates (15-30) mg/dL Urine Opiates Screen (Not Detect) Urine Fentanyl Screen (Not Detect) Acetaminophen (<30) mcg/mL Ur Barbiturates Screen (Not Detect) Ur Phencyclidine Scrn (Not Detect) Ur Amphetamines Screen (Not Detect) U Benzodiazepines Scrn (Not Detect) Urine Cocaine Screen (Not Detect) U Marijuana (THC) Screen (Not Detect) Ethyl Alcohol mg/dL COVID-19 ([facility]) (Negative) COVID-19 Clin Com Independent Interpretation I performed an independent interpretation of an: Plain X-Ray ( my interpretation of chest x-ray: No pneumonia ) Radiology Impression Discussion of test interpretation with radiology: I have reviewed the radiologist's reading. Radiologist Impression: FINDINGS: Normal appearance of the cardiomediastinal silhouette. No focal airspace opacity, pleural effusion or pneumothorax. No acute osseous findings. The visualized upper abdomen is within normal limits. XR/XR chest 1V IMPRESSION: No acute cardiopulmonary findings. LUNGS: Dense dependent consolidation in the lower lobes bilaterally with surrounding groundglass opacities. There are a few patchy nodular opacities posterior lingula and dependent aspects of the upper lobes bilaterally following a centrilobular distribution. Findings suggestive of aspiration bronchiolitis and pneumonia (lower lobes). There is a 5 mm nodule in the right upper lobe laterally as seen on series 5, image 103 which is unrelated to this infectious process. MEDIASTINUM: Normal heart size. Trace pericardial effusion. Great vessels normal caliber. Coronary calcifications present. No mediastinal or hilar lymphadenopathy.? CORONARY ARTERY CALCIFICATION: Present. PLEURA: There is no pleural effusion. No pleural mass or thickening.? AXILLA: No lymphadenopathy.? UPPER ABDOMEN: Unremarkable.? OSSEOUS STRUCTURES: No acute or suspicious osseous abnormality.? CT/CT chest wo IV con IMPRESSION: *? Findings compatible with aspiration bronchiolitis / pneumonia as described. *? There is a 5 mm nodule in the right upper lobe laterally which is unrelated to the infectious process. Per the 2017 revised Fleischner Society guidelines, no routine follow up is necessarily required in low-risk patients, and consideration of 12-month followup CT is recommended for patients at high-risk for the development of pulmonary neoplasm. Critical Care Time Critical Care Time Critical Care Time: Yes Total Critical Care Time: 120 Attestation: I have personally provided critical care time. Time includes review of lab data, radiology results, discussion with consultants, and monitoring for potential decompensation. Intervention performed as documented. Discharge Plan Discharge Clinical Impression: Overdose, Demand ischemia, Acidosis, lactic, Aspiration pneumonia Patient Disposition: Admitted As Inpatient
[2022-10-05] MEDS: 0.9 % Sodium Chloride 2,000 ML 999 ML IVCONT (23:37)
[2022-10-05 23:41] LABS: Appearance Urine Clear; Color Urine Yellow; Glucose Urine UA >=1000 mg/dL (Negative); Leukocyte Esterase Urine Negative (Negative); Nitrite Urine Negative (Negative); UMIC TRIGGER UACC YES; Urine Blood Trace (Negative); Urine Ketones Negative (Negative); Urine Protein 30 (1+) mg/dL (Neg-Trace)
[2022-10-05] MEDS: ondansetron HCL 4 MG/2 ML VIAL IVPUSH (23:42)
[2022-10-05 23:48] LABS: Bacteria Urine None Seen (None Seen); RBC Urine 0-2 /HPF (0-2); Squamous Epithelial Cell Urine 0-2 /HPF (0-2); WBC Urine 0-5 /HPF (0-5)
[2022-10-05 23:52] VITALS: BP 117/80; PULSE 100; RESP 20; TEMP 35.6; O2SAT 100
[2022-10-05 23:53] LABS: Lactic Acid 11.5 mmol/L (0.5-2.0)
[2022-10-05 23:53] LABS: Amphetamine Screen Urine Not Detected (Not Detect); Barbiturates, Urine Not Detected (Not Detect); Benzodiazepines Screen Urine POSITIVE (Not Detect); Cannabinoid Screen Urine POSITIVE (Not Detect); Cocaine Screen Urine Not Detected (Not Detect); Fentanyl, urine POSITIVE (Not Detect); Opiate Screen Urine Not Detected (Not Detect); Phencyclidine Screen Urine Not Detected (Not Detect)
[2022-10-06] VITALS (13 sets, daily range): BP systolic 93–127; BP diastolic 65–86; PULSE 86–114; RESP 16–20; TEMP 36.2–37.1; O2SAT 91–98
--- NOTE | 2022-10-06 | PC.NURSE ---
this rn assumed care of pt @ [id number]. md at bedside. rt at bedside. pt placed on oxymask @ 12lpm. pt dusky. placed on gambling monitor iv line placed 22gin R FA. pt yelling an calling out. pt unable to form sentences. blood work obtained pt mediated according to mamadou
[2022-10-06] MEDS: Piperacillin Sodium/Tazobactam 3.375 GM in 0.9 % Sodium Chloride 50 ML IV (00:09)
--- NOTE | 2022-10-06 00:10 | PC.NURSE ---
dr jones aware of elevated HR, low temp, and elevated LA 11.5. per md sepsis alert not called at this time
[2022-10-06 00:18] LABS: MANUAL DIFF FLAG NO
[2022-10-06 00:20] LABS: Basophils Absolute Auto 0.1 X10*3/uL (0.0-0.2); Basophils Percent Auto 0.4 % (0-2); Eosinophils Percent Auto 0.1 % (0-4); Hematocrit 41.9 % (37.0-47.0); Hemoglobin 13.1 g/dl (12.0-16.0); Imm Gran Abs Auto 0.33 X10*3/uL (0.00-0.03); Imm Gran Pct Auto 1.8 % (0.0-0.4); Lymphocytes Absolute Auto 1.1 X10*3/uL (1.2-4.9); Lymphocytes Percent Auto 6.1 % (20-40); Mean Corpuscular HGB Conc 31.3 g/dl (31.0-35.0); Mean Corpuscular Hemoglobin 29.2 pg (27.0-33.0); Mean Corpuscular Volume 93.3 fL (80.0-98.0); Mean Platelet Volume 10.2 fL (9.4-12.3); Monocytes Absolute Auto 0.9 X10*3/uL (0.1-1.2); Monocytes Percent Auto 5.2 % (2-11); Neutrophils Absolute Auto 15.5 x10*3/uL (2.0-8.3); Neutrophils Percent Auto 86.4 % (45-73); Platelet Count 350 X10*3/uL (160-400); Red Blood Count 4.49 X10*6/uL (4.20-5.50); Red Cell Distribution Width 13.7 % (11.0-16.0)
[2022-10-06 00:25] LABS: INTERNATIONAL NORM RATIO 0.9 (0.9-1.1); Prothrombin Time 10.6 SEC (11.1-13.3)
--- NOTE | 2022-10-06 00:26 | MHC.EDTECH ---
This tech assume care of pt at 2300 pt changed into hospital attire belongings went to [facility]. EKG was taken labs where drawn and sent to lab. Pt was incont. of urine pt was cleaned and repositioned warmer applied to pt due to a low grade temp per RN.
[2022-10-06 00:30] LABS: VBG Base Excess -10.3 mmol/L; VBG HCO3 17 mmol/L (22-26); VBG pCO2 41 mmHg; VBG pH 7.21 (7.32-7.43); VBG pO2 48 mmHg; Venous Blood Gas Refer to POC result
[2022-10-06 00:32] LABS: Acetaminophen LAB < 17 mcg/mL (<30); Ammonia 40 umol/L (13-55); Salicylate < 5.0 mg/dL (15-30)
[2022-10-06 00:35] LABS: Ethanol 12 mg/dL
[2022-10-06 00:36] LABS: COVID-19 Test Negative (Negative); IDNOW Serial# 08D9AD1C
[2022-10-06 00:43] LABS: Alanine Aminotransferase 16 U/L (0-31); Albumin Level 4.1 g/dL (3.5-5.0); Alkaline Phosphatase 111 U/L (39-117); Anion Gap 21 (12-20); Aspartate Amino Transferase 28 U/L (5-31); Bilirubin Direct < 0.2 mg/dL (0.0-0.5); Bilirubin Total 0.1 mg/dL (0.0-1.0); Blood Urea Nitrogen 14 mg/dL (9-16); Calcium 8.7 mg/dL (8.4-10.2); Carbon Dioxide 16 mmol/L (22-29); Chloride 110 mmol/L (96-108); Creatinine Clr Calc Pharmacy 51.3; Estimated Glomerular Filt Rate > 60; Glucose Random 137 mg/dL (60-115); Lipase 22 U/L (8-78); Magnesium 2.1 mg/dL (1.6-2.6); Potassium 3.7 mmol/L (3.3-5.1); Sodium 143 mmol/L (135-145); Total Protein 7.6 g/dL (6.5-8.0)
[2022-10-06 00:55] LABS: TSH reflex Free T4 3.76 uIU/mL (0.32-4.0)
[2022-10-06] MEDS: 0.9 % Sodium Chloride 1,000 ML 999 ML IVCONT (01:27)
--- NOTE | 2022-10-06 01:30 | PC.NURSE ---
pt taken off oxymask placed on NC [address] jones provided pt with ice chips. pt alert and orient to time and place. unaware of situation. following commands well
[2022-10-06 01:33] LABS: Reflex Lactate? Lactic Acid Added
[2022-10-06 02:41] LABS: Troponin-I High Sensitivity 258.4 ng/L (<3.5-17.0)
[2022-10-06 05:24] LABS: Troponin-I High Sensitivity 294.5 ng/L (<3.5-17.0)
--- NOTE | 2022-10-06 05:35 | ECG_ITS ---
Test Reason : ELEVATED TROP Blood Pressure : / mmHG Vent. Rate : 099 BPM Atrial Rate : 099 BPM P-R Int : 118 ms QRS Dur : 076 ms QT Int : 374 ms P-R-T Axes : 072 052 035 degrees QTc Int : 479 ms Normal sinus rhythm Normal ECG When compared with ECG of 05-OCT-2022 23:45, QRS axis Shifted left ST no longer depressed in Anterior leads Nonspecific T wave abnormality, improved in Inferior leads Nonspecific T wave abnormality no longer evident in Lateral leads QT has shortened Referred By: Tequila Stephen Electronically Signed By:CADEN ESTEBAN
--- NOTE | 2022-10-06 06:05 | PC.NURSE ---
per dr jones pt taken off o2 for room air trial. this rn and md at bedside. pt @ 95% RA. pt found to desat to 85% RA. this rn made dr jones aware. this rn and md to bedside. pt placed back on 3lpm nc pt maintaining at 93-94%. pt pending admission
--- NOTE | 2022-10-06 06:18 | PC.NURSE ---
octavio rec performed utilizing medical record
--- NOTE | 2022-10-06 07:00 | CA_ITS ---
Transthoracic Echocardiogram Patient (Last, First, Middle): Racheal Meyer, Gender: Female Date of : 1965 Age: 56 Procedure Date: 10/06/2022 Procedure Type: Transthoracic Echocardiogram Location: ER Height: 152.4 cm Weight: 46.27 kg BSA: 1.40 m2 Heart Rate: 90 bpm BP: 110 / 75 mmHg [employer] Director: ELISSA Referring MD: Andrea Faye MD Symptoms: tn elev, susp demand isch Study Quality: Adequate/Contrast ECG Rhythm: Sinus Conclusions: - The left ventricular systolic function is normal. The calculated ejection fraction is 58% by biplane method. - The basal inferolateral segment is hypokinetic. - No obvious valvular pathology seen on this study. Findings Procedure Information Contrast agent, definity, is being given per protocol without apparent complications. Left Ventricle Normal left ventricular cavity size. There is normal left ventricular wall thickness. The left ventricular systolic function is normal. The calculated ejection fraction is 58% by biplane method. Diastolic function is normal for age. Wall Motion Rest Echo Findings The basal inferolateral segment is hypokinetic. Right Ventricle Normal right ventricular cavity size. There is mildly decreased right ventricular systolic function. Atria Both atria are normal in size. Aortic Valve The aortic valve was not well visualized. There is no aortic valve stenosis. There is no aortic valve regurgitation. Mitral Valve The mitral valve appears normal. There is no mitral valve regurgitation. There is no mitral valve stenosis. Pulmonic Valve The pulmonic valve is likely normal. Tricuspid Valve There is trace tricuspid valve regurgitation. There is no evidence of pulmonary hypertension. Great Vessels The asc aorta is normal in size. Venous The inferior vena cava is normal in size and collapses greater than 50% with inspiration. Pericardium/Pleural There is no evidence of pericardial effusion. Prior Study Comparison No prior study available for comparison. Recommendations, Care & Conclusions No obvious valvular pathology seen on this study. Measurements 2D Linear Measurements IVSd: 0.54 0.6-0.9/0.6-1.0 cm LVIDd: 4.18 3.9-5.3/4.2-5.9 cm LVIDd Index: 2.99 2.4-3.2/2.2-3.1 cm/m2 LVIDs: 3.09 2.0-3.6 cm LVPWd: 0.67 0.7-1.1 cm LA Diam: 2.70 2.7-3.8/3.0-4.0 cm LAIDs Index: 1.93 1.5-2.3 cm/m2 LV Mass: 86.90 67-162/88-224 g LV Mass Index: 62.07 43-95/49-115 g/m2 LVOT Diam: 1.70 3.0+(-)1.3 cm 2D Systolic Function EF 4C: 60.10 >55% EF 2C: 56.00 >55% EF BiP: 58.00 >55% Mitral Valve MV Pk E: 1.05 MV PK A: 0.73 MV Decel Time: 123.00 E/A: 1.40 E'Lateral: 11.00 E'Medial: 7.51 E/E' Med: 14.00 E/E' Lat: 9.50 PHT: 36.00 MVA PHT: 6.11 Decel [place]: 8.59 Aortic Valve AoV Pk [place]: 1.18 AoV Pk Grad: 6.00 JOSE LUIS: 2.25 LVOT LVOT Pk Adonay: 1.10 LVOT Mn [place]: 0.70 LVOT VTI: 0.20 LVOT Pk Grad: 5.00 LVOT Mn Grad: 2.00 LVOT Diam: 1.70 LVOT Area: 2.27 Diastolic Function MV Pk E: 1.05 MV Pk A: 0.73 E/A: 1.40 E'Medial: 7.51 E/E' Med: 14.00 E' Laterial: 11.00 E/E' Lat: 9.50 Right Ventricle TAPSE (mm): 16.50 TVS' Adonay: 9.36 Tricuspid Valve TR Pk Adonay: 2.25 TR Pk Grad: 20.00 Great Vessels Aorta Sinus of Valsalva: 2.30 2.0-3.5 cm Ao Asc: 2.20 2.1-3.4 cm Pulmonary Valve PV Pk Adonay: 0.71 Peak PV Grad: 2.00 Updated in Other Vendor System with Status of Final Catarino Chavira MD electronically signed on 10/06/2022 11:02:33 AM with status of Final
--- NOTE | 2022-10-06 07:38 | PHA.MEDREC ---
Pharmacy Consult ? Medication Reconciliation Pharmacy has completed the medication reconciliation. spoke with patient and confirmed medications.
[2022-10-06] MEDS: Ampicillin Sodium/Sulbactam Na 3 GM in 0.9 % Sodium Chloride 100 ML IV ×3 (08:21→22:48)
[2022-10-06] MEDS: Enoxaparin Sodium 40 MG/0.4 ML SYRINGE SUBCUT (09:31)
[2022-10-06] MEDS: hydrOXYzine HCL 50 MG TABLET PO ×3 (09:31→22:38)
[2022-10-06] MEDS: Sertraline HCL 100 MG TABLET 200 MG PO (09:31)
[2022-10-06] MEDS: QUEtiapine Fumarate 50 MG TABLET PO ×2 (09:32→22:38)
[2022-10-06] MEDS: Omeprazole 20 MG CAPSULE.DR PO (09:32)
[2022-10-06] MEDS: Gabapentin 100 MG CAPSULE PO ×2 (09:32→22:38)
[2022-10-06] MEDS: OXcarbazepine 300 MG TABLET PO ×2 (09:32→22:39)
[2022-10-06] MEDS: LORazepam 1 MG TABLET PO ×3 (09:32→22:38)
[2022-10-06] MEDS: Levothyroxine Sodium 75 MCG TABLET PO (09:32)
--- NOTE | 2022-10-06 09:53 | PC.NURSE ---
no seizure activity. aox4. eating snacks- passed swallow eval prior. vss. no distress. talking clearly. resting in bed. side rails padded.
--- NOTE | 2022-10-06 10:18 | P.HPHOSP_ITS ---
History of Present Illness Date of Service: 10/06/22 Chief Complaint: Overdose 56yo F with bipolar disorder, EDWARD, and PTSD brought in by EMS after an overdose. History difficult to obtain, as the patient has extreme mood lability and, while awake and alert, is quite agitated and anxious about what happened. Jean ortez, per the ED physician Tequila Stephen: patient comes emergency room via ambulance after an overdose.? According to EMS, the patient's boyfriend noted that the patient was unresponsive at the neighbor's house, he carried her back home.? At home, he gave her 4 mg of Narcan, then called EMS.? EMS reports that the patient's oxygen saturation has been in the high 80s/ low 90s. ? in the? ambulance per EMS, patient started posturing upper extremities and neck, she was given 2 mg IM of Versed.? ? On arrival to the ED, patient's oxygen saturation in the mid 60s on 4 L of oxygen, patient was given ? 4 mg intranasal Narcan, and was started on OxyMask, oxygen saturation improved to? 100%.? Patient still altered, unable to give any history. CT of the chest showed aspiration bronchiolitis / pneumonia. Labs showed WBCs of 18k with 86% PMNs, venous pH of 7.21, lactate of 11.5, bicarbonate of 16. High-sen Tn-I was 135, then 258, then 295. After resuscitation with 3L of IV NS and 1 dose of piperacillin- tazobactam, lactate is now 2. Temperature is 97.7 with BP 100/71. Urine toxicology was positive for fentanyl, THC, and BZPs. She is on chronic lorazepam. When I saw her, she had woken up and was upset. She denies intentionally or knowingly taking fentanyl. She did smoke THC and wonders if it was laced. Currently denies any fever, chills, cough, chest pain, or dyspnea. Denies hallucinations, SI, or HI. Review of Systems Review of Systems: Yes all other systems are reviewed and are negative [facility] Medical History Acquired hypothyroidism Bipolar illness Generalized anxiety disorder GERD (gastroesophageal reflux disease) Posttraumatic stress disorder Family History Father HIV (human immunodeficiency virus infection) CKD (chronic kidney disease) Substance use disorder Mother Hepatitis C Bilateral cataracts Maternal Grandmother Diabetes CVD (cardiovascular disease) Brother No problems noted. Brother No problems noted. Brother No problems noted. Sister No problems noted. Other Mental health disorder Surgical History History of eye surgery History of foot surgery Social History Housing: Condominium Alcohol intake: current Alcohol intake frequency: a few times a week Patient Tobacco Use Status: Former Tobacco user Quit Date: quit 13 years ago Smoked in Last 30 Days: Yes e-Cigarette/Vaping Use: Never Used Second Hand Smoke Exposure: No Use of substances other than those prescribed or required for medical reasons: Yes Substance Use Type: Crack/Cocaine, Heroin and Marijuana Advance Directives: No Advance Directives Information Provided: No Nutrition Risks: No Nutritional Risk Patient : No service: No Current occupational status: disabled Cognitive needs: Yes (walker) Hearing needs: No Vision needs: No Meds Allergies Allergy/AdvReac Type Severity Reaction Status Date / Time hair dye Allergy Unknown Unknown Verified 10/29/21 10:57 Active Medications: Current Medications Acetaminophen (Acetaminophen Supp 650 Mg Supp.Rect) 650 mg CO Q6H PRN PRN Reason: Pain, Mild (Pain Scale 1-3) Docusate Sodium (Docusate Sodium 100 Mg Capsule) 100 mg PO BID PRN PRN Reason: consterpation Enoxaparin Sodium (Enoxaparin Sodium 40 Mg/0.4 Ml Syringe) 40 mg SUBCUT Q24H [facility] Last Admin: 10/06/22 09:31 Dose: 40 mg Gabapentin (Gabapentin 100 Mg Capsule) 100 mg PO BID [facility] Last Admin: 10/06/22 09:32 Dose: 100 mg Hydroxyzine HCl (Hydroxyzine Hcl 50 Mg Tablet) 50 mg PO TID [facility] Last Admin: 10/06/22 09:31 Dose: 50 mg Ampicillin Sodium/Sulbactam (Sodium 3 gm/ Sodium Chloride) 100 mls @ 200 mls/hr IV Q6H [facility] Last Infusion: 10/06/22 09:32 Dose: Infused Levothyroxine Sodium (Levothyroxine Sodium 75 Mcg Tablet) 75 mcg PO DAILY@0600 [facility] Last Admin: 10/06/22 09:32 Dose: 75 mcg Lorazepam (Lorazepam 1 Mg Tablet) 1 mg PO TID [facility] Last Admin: 10/06/22 09:32 Dose: 1 mg Omeprazole (Omeprazole 20 Mg Capsule.Dr) 20 mg PO DAILY@0630 [facility] Last Admin: 10/06/22 09:32 Dose: 20 mg Ondansetron HCl (Ondansetron Hcl 4 Mg/2 Ml Vial) 4 mg IVPUSH Q8H PRN PRN Reason: Nausea and Vomiting Oxcarbazepine (Oxcarbazepine 300 Mg Tablet) 300 mg PO BID [facility] Last Admin: 10/06/22 09:32 Dose: 300 mg Quetiapine Fumarate (Quetiapine Fumarate 50 Mg Tablet) 50 mg PO BID [facility] Last Admin: 10/06/22 09:32 Dose: 50 mg Quetiapine Fumarate (Quetiapine Fumarate 400 Mg Tablet) 400 mg PO BEDTIME [facility] Senna (Sennosides 8.6 Mg Tablet) 17.2 mg PO BEDTIME PRN PRN Reason: Constipation Sertraline HCl (Sertraline Hcl 100 Mg Tablet) 200 mg PO DAILY [facility] Last Admin: 10/06/22 09:31 Dose: 200 mg Sodium Chloride (0.9 % Sodium Chloride Flush 3 Ml Syringe) 3 ml IVFLUSH QSHIFT [facility] Home Medications Medication Instructions Recorded Confirmed Last Taken Type hydroxyzine pamoate 50 mg capsule 50 mg PO TID 03/31/20 10/06/22 Unknown History oxcarbazepine 300 mg tablet 300 mg PO BID 03/31/20 10/06/22 Unknown History quetiapine 400 mg tablet 400 mg PO BEDTIME 03/31/20 10/06/22 Unknown History quetiapine 50 mg tablet (Seroquel) 50 mg PO BID 03/31/20 10/06/22 Unknown History sertraline 100 mg tablet (Zoloft) 200 mg PO DAILY 03/31/20 10/06/22 Unknown History lorazepam 1 mg tablet 1 mg PO TID 09/02/20 10/06/22 02/06/21 07:30 History Physical Exam Vital Signs and Narrative: Vital Signs: Last Vital Signs Temp 97.7 F 10/06/22 09:20 Pulse 93 10/06/22 09:20 Resp 16 10/06/22 09:20 BP 110/72 10/06/22 09:30 Pulse Ox 96 10/06/22 09:20 O2 Del Method Room Air 10/06/22 09:20 O2 Flow Rate 4 10/06/22 06:00 Oxygen Flow Rate 12 10/05/22 22:52 BMI result Body Mass Index 20.1 Gen: anxious HEENT: sclera anicteric, moist mucus membranes Neck: supple Lungs: bilateral inspiratory crackles Heart: regular rate and rhythm, no murmurs Abd: soft, non-tender, non-distended Ext: no edema Skin: warm/well-perfused Neuro: alert and oriented x3, no focal findings Psych: anxious Results Labs 10/06/22 00:14 10/06/22 00:14 Labs: Laboratory Results - last 24 hr 10/05/22 10/05/22 10/05/22 23:30 23:34 23:34 MCV MCH MCHC RDW Plt Count MPV Immature Gran % (Auto) Neut % (Auto) Lymph % (Auto) [place] % (Auto) Eos % (Auto) Baso % (Auto) Lymph # (Auto) [place] # (Auto) Eos # (Auto) Baso # (Auto) Abs Immat Gran (auto) Absolute Neuts (auto) Absolute Nucleated RBC Nucleated RBC % (auto) PT INR VBG pH VBG pCO2 VBG pO2 VBG HCO3 VBG O2 Saturation VBG Base Excess Anion Gap Estim Creat Clear Calc Estimated GFR Random Glucose Lactic Acid 11.5 H* Lactic Acid F/U @ 2Hr Calcium Magnesium Total Bilirubin Direct Bilirubin AST ALT Alkaline Phosphatase Ammonia Total Creatine Kinase Total Protein Albumin Lipase TSH Urine Color Yellow Urine Appearance Clear Urine pH 5.0 Ur Specific [place] 1.010 Urine Protein 30 (1+) H Urine Glucose (UA) >=1000 H Urine Ketones Negative Urine Blood Trace H Urine Nitrite Negative Ur Leukocyte Esterase Negative Urine RBC 0-2 Urine WBC 0-5 Ur Squamous Epith Cells 0-2 Urine Bacteria None Seen Hyaline Casts 3-5 Salicylates Urine Opiates Screen Not Detected Urine Fentanyl Screen POSITIVE H Acetaminophen Ur Barbiturates Screen Not Detected Ur Phencyclidine Scrn Not Detected Ur Amphetamines Screen Not Detected U Benzodiazepines Scrn POSITIVE H Urine Cocaine Screen Not Detected U Marijuana (THC) Screen POSITIVE H Ethyl Alcohol COVID-19 (STACEY) COVID-19 Clin Com 10/06/22 10/06/22 10/06/22 00:14 00:14 00:14 MCV 93.3 MCH 29.2 MCHC 31.3 RDW 13.7 Plt Count 350 MPV 10.2 Immature Gran % (Auto) 1.8 H Neut % (Auto) 86.4 H Lymph % (Auto) 6.[address] [place] % (Auto) 5.2 Eos % (Auto) 0.1 Baso % (Auto) 0.4 Lymph # (Auto) 1.[address] [place] # (Auto) 0.9 Eos # (Auto) 0.0 Baso # (Auto) 0.1 Abs Immat Gran (auto) 0.33 H Absolute Neuts (auto) 15.5 H Absolute Nucleated RBC 0.000 Nucleated RBC % (auto) 0.0 PT INR VBG pH VBG pCO2 VBG pO2 VBG HCO3 VBG O2 Saturation VBG Base Excess Anion Gap 21 H Estim Creat Clear Calc 51.3 Estimated GFR > 60 Random Glucose 137 H Lactic Acid Lactic Acid F/U @ 2Hr Calcium 8.7 D Magnesium 2.1 Total Bilirubin 0.1 Direct Bilirubin < 0.2 AST 28 ALT 16 Alkaline Phosphatase 111 Ammonia Total Creatine Kinase 144 H Total Protein 7.6 Albumin 4.1 Lipase 22 TSH 3.76 Urine Color Urine Appearance Urine pH Ur Specific [place] Urine Protein Urine Glucose (UA) Urine Ketones Urine Blood Urine Nitrite Ur Leukocyte Esterase Urine RBC Urine WBC Ur Squamous Epith Cells Urine Bacteria Hyaline Casts Salicylates Urine Opiates Screen Urine Fentanyl Screen Acetaminophen Ur Barbiturates Screen Ur Phencyclidine Scrn Ur Amphetamines Screen U Benzodiazepines Scrn Urine Cocaine Screen U Marijuana (THC) Screen Ethyl Alcohol COVID-19 ([facility]ACEY) Negative COVID-19 Clin Com See Note 10/06/22 10/06/22 10/06/22 00:14 00:14 00:14 MCV MCH MCHC RDW Plt Count MPV Immature Gran % (Auto) Neut % (Auto) Lymph % (Auto) [place] % (Auto) Eos % (Auto) Baso % (Auto) Lymph # (Auto) [place] # (Auto) Eos # (Auto) Baso # (Auto) Abs Immat Gran (auto) Absolute Neuts (auto) Absolute Nucleated RBC Nucleated RBC % (auto) PT 10.6 L INR 0.9 VBG pH VBG pCO2 VBG pO2 VBG HCO3 VBG O2 Saturation VBG Base Excess Anion Gap Estim Creat Clear Calc Estimated GFR Random Glucose Lactic Acid Lactic Acid F/U @ 2Hr Calcium Magnesium Total Bilirubin Direct Bilirubin AST ALT Alkaline Phosphatase Ammonia 40 Total Creatine Kinase Total Protein Albumin Lipase TSH Urine Color Urine Appearance Urine pH Ur Specific [place] Urine Protein Urine Glucose (UA) Urine Ketones Urine Blood Urine Nitrite Ur Leukocyte Esterase Urine RBC Urine WBC Ur Squamous Epith Cells Urine Bacteria Hyaline Casts Salicylates < 5.0 L Urine Opiates Screen Urine Fentanyl Screen Acetaminophen < 17 Ur Barbiturates Screen Ur Phencyclidine Scrn Ur Amphetamines Screen U Benzodiazepines Scrn Urine Cocaine Screen U Marijuana (THC) Screen Ethyl Alcohol COVID-19 ([facility]ACEY) COVID-19 readfy Com 10/06/22 10/06/22 10/06/22 00:18 00:19 02:07 MCV MCH MCHC RDW Plt Count MPV Immature Gran % (Auto) Neut % (Auto) Lymph % (Auto) [place] % (Auto) Eos % (Auto) Baso % (Auto) Lymph # (Auto) [place] # (Auto) Eos # (Auto) Baso # (Auto) Abs Immat Gran (auto) Absolute Neuts (auto) Absolute Nucleated RBC Nucleated RBC % (auto) PT INR VBG pH 7.21 L VBG pCO2 41 VBG pO2 48 VBG HCO3 17 L VBG O2 Saturation 76.0 VBG Base Excess -10.3 Anion Gap Estim Creat Clear Calc Estimated GFR Random Glucose Lactic Acid Lactic Acid F/U @ 2Hr 2.0 Calcium Magnesium Total Bilirubin Direct Bilirubin AST ALT Alkaline Phosphatase Ammonia Total Creatine Kinase Total Protein Albumin Lipase TSH Urine Color Urine Appearance Urine pH Ur Specific [place] Urine Protein Urine Glucose (UA) Urine Ketones Urine Blood Urine Nitrite Ur Leukocyte Esterase Urine RBC Urine WBC Ur Squamous Epith Cells Urine Bacteria Hyaline Casts Salicylates Urine Opiates Screen Urine Fentanyl Screen Acetaminophen Ur Barbiturates Screen Ur Phencyclidine Scrn Ur Amphetamines Screen U Benzodiazepines Scrn Urine Cocaine Screen U Marijuana (THC) Screen Ethyl Alcohol 12 COVID-19 ([facility]ACEY) COVID-19 readfy Com Imaging Radiologist's Impressions: Impressions Chest X-Ray 10/05/22 23:28 IMPRESSION: No acute cardiopulmonary findings. Chest CT 10/06/22 06:15 IMPRESSION: * Findings compatible with aspiration bronchiolitis / pneumonia as described. * There is a 5 mm nodule in the right upper lobe laterally which is unrelated to the infectious process. Per the 2017 revised Fleischner Society guidelines, no routine follow up is necessarily required in low-risk patients, and consideration of 12-month followup CT is recommended for patients at high-risk for the development of pulmonary neoplasm. Assessment and Plan (1) Overdose: Status: Acute (2) Demand ischemia: Status: Acute (3) Acidosis, lactic: Status: Acute Plan 56yo F with bipolar disorder, PTSD, and EDWARD presenting after unintentional fentanyl overdose requiring total 8 mg intranasal naloxone to reverse. Found to have hypothermia and hypoxia from aspiration pneumonia. Troponin elevated though no chest pain. acute hypoxic respiratory failure due to aspiration pneumonia due to fentanyl overdose - admit to [facility]MC - supplemental O2 via NC [4L at present], wean as tolerated - IV ampicillin-sulbactam - bedside swallow evaluation - Recovery Team/Addiction Medicine consultation troponin elevation - suspect demand ischemia from fentanyl overdose. TTE pending. ASA, atorvastatin. lactic acidosis - resolved after reversal of overdose and fluid resuscitation bipolar disorder PTSD EDWARD - oxcarbazepine, gabapentin, hydroxyzine, sertraline, quetiapine, lorazepam hypothyroidism - LT4 GERD - PPI VTE ppx - LMWH dispo - eventually home I anticipate that the patient will stay at least 2 midnights as an inpatient in the hospital due to the above reasons. It is neither reasonable nor safe to care for them in a less acute setting. Time Spent With Patient Time: Total time managing care of this patient today ____ minutes. Quality Stroke Does the patient have a stroke diagnosis?: No VTE Prior VTE?: No VTE Risk Level:: Medical - moderate - high VTE Device Contraindication: N/A - Device Ordered VTE Drug Contraindication: N/A - Med Ordered
[2022-10-06 10:44] LABS: Anion Gap 13 (12-20); Blood Urea Nitrogen 13 mg/dL (9-16); Calcium 7.7 mg/dL (8.4-10.2); Carbon Dioxide 18 mmol/L (22-29); Chloride 113 mmol/L (96-108); Creatinine Clr Calc Pharmacy 64.1; Estimated Glomerular Filt Rate > 60; Glucose Random 106 mg/dL (60-115); Magnesium 1.4 mg/dL (1.6-2.6); Potassium 3.9 mmol/L (3.3-5.1); Sodium 140 mmol/L (135-145)
--- NOTE | 2022-10-06 10:48 | PC.NURSE ---
md romano notified mg came back at 1.4 per lab critical result notification.
[2022-10-06 11:53] LABS: HIV AB/AG Nonreactive (Nonreactive); HIV Num 1 0.06 S/CO (0.00-0.99); ~HepC Num1 0.17 S/CO (0.00-0.79); ~Hepatitis C Antibody Nonreactive (Nonreactive)
[2022-10-06] MEDS: Magnesium Sulfate/H2O 2 GM/50 ML PIGGYBACK IV (11:55)
[2022-10-06] MEDS: Atorvastatin Calcium 80 MG TABLET PO (11:56)
[2022-10-06] MEDS: Aspirin 81 MG TAB.CHEW 324 MG PO (11:56)
--- NOTE | 2022-10-06 12:13 | PC.NURSE ---
pt changed in new gown/pad/assisted with adl's aox4 calm coop no distress. attempt to titrate to RA from 4L. 90% RA. on 2L NC 93-94%. now on 3L. 95%.
--- NOTE | 2022-10-06 12:18 | MHC.EDTECH ---
AM care done change linen removed pure wick and gave bed side commode.
[2022-10-06 13:59] LABS: Procalcitonin 0.96 ng/mL
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
--- NOTE | 2022-10-06 16:14 | PC.NURSE ---
attempted report - spoke bárbara aguilar holder pile driving- referred to brigida peterson rn on [employer] text- sent message via [employer] text. awaiting call back- transport is here per RN call earlier.
--- NOTE | 2022-10-06 16:40 | PC.NURSE ---
grecia called back for report- report given- transport called again.
--- NOTE | 2022-10-06 16:40 | PM.EVENT ---
Event Note Date of Service: 10/06/22 Event Note: Addiction consult placed for patient Seen by outboard system operator and post overdose evaluation completed. Please see RN SUDE note for additional information. No follow up indicated at this time. Time Spent With Patient Time: Total time managing care of this patient today ____ minutes.
--- NOTE | 2022-10-06 16:51 | PC.NURSE ---
vss. up to floor. no distress.
--- NOTE | 2022-10-06 20:52 | PC.NURSE ---
Assumed care at 16:30 when admitted to floor. Patient alert and oriented x4, but also manic, labile emotions, outbursts with crying frequently, endorses SI, describes plan to hang self, denied plan to act on it now, Discussed with MD and Nursing cooperage shop supervisor, 1:1 lime boiler ordered and provided. ligature risk limited.
[2022-10-06] MEDS: QUEtiapine Fumarate 400 MG TABLET PO (22:38)
[2022-10-06] MEDS: Enoxaparin Sodium 60 MG/0.6 ML SYRINGE 45 MG SUBCUT (22:39)
[2022-10-06] MEDS: Ketorolac Tromethamine 30 MG/ML VIAL IVPUSH (22:42)
[2022-10-06] MEDS: 0.9 % Sodium Chloride Flush 3 ML SYRINGE IVFLUSH (22:45)
[2022-10-07] VITALS (7 sets, daily range): BP systolic 96–132; BP diastolic 59–71; PULSE 75–110; RESP 16–20; TEMP 36.2–37.7; O2SAT 91–98
[2022-10-07] MEDS: Ampicillin Sodium/Sulbactam Na 3 GM in 0.9 % Sodium Chloride 100 ML IV ×4 (02:29→21:10)
[2022-10-07] MEDS: Omeprazole 20 MG CAPSULE.DR PO (06:17)
[2022-10-07] MEDS: Levothyroxine Sodium 75 MCG TABLET PO (06:17)
[2022-10-07 07:45] LABS: Hematocrit 32.1 % (37.0-47.0); Hemoglobin 10.3 g/dl (12.0-16.0); Mean Corpuscular HGB Conc 32.1 g/dl (31.0-35.0); Mean Corpuscular Hemoglobin 28.9 pg (27.0-33.0); Mean Corpuscular Volume 89.9 fL (80.0-98.0); Mean Platelet Volume 11.3 fL (9.4-12.3); Platelet Count 247 X10*3/uL (160-400); Red Blood Count 3.57 X10*6/uL (4.20-5.50); Red Cell Distribution Width 13.6 % (11.0-16.0)
[2022-10-07 07:48] LABS: White Blood Count 12.5 X10*3/uL (4.8-10.8)
[2022-10-07 07:49] LABS: Alanine Aminotransferase 16 U/L (0-31); Albumin Level 3.3 g/dL (3.5-5.0); Alkaline Phosphatase 85 U/L (39-117); Anion Gap 12 (12-20); Aspartate Amino Transferase 24 U/L (5-31); Bilirubin Total 0.3 mg/dL (0.0-1.0); Blood Urea Nitrogen 7 mg/dL (9-16); Calcium 8.3 mg/dL (8.4-10.2); Carbon Dioxide 22 mmol/L (22-29); Chloride 114 mmol/L (96-108); Estimated Glomerular Filt Rate > 60; Glucose Random 107 mg/dL (60-115); Magnesium 2.3 mg/dL (1.6-2.6); Potassium 3.2 mmol/L (3.3-5.1); Sodium 145 mmol/L (135-145); Total Protein 6.1 g/dL (6.5-8.0)
[2022-10-07 08:07] LABS: Troponin-I High Sensitivity 58.6 ng/L (<3.5-17.0)
--- NOTE | 2022-10-07 08:48 | MHC.CM.PN ---
CM spoke with Patient's Primary Contact/Mother/Ana @ [phone] and addressed IMM with her (original will be mailed certified letter to Ana and a copy has been placed on the chart). 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 Patient may benefit from a Psych & Recovery Team Consult to assist with disposition. CM has initiated and will follow for dc planning. PCP is Dr. Doan.
[2022-10-07] MEDS: LORazepam 1 MG TABLET PO ×3 (09:35→21:11)
[2022-10-07] MEDS: QUEtiapine Fumarate 50 MG TABLET PO ×2 (09:35→21:11)
[2022-10-07] MEDS: Gabapentin 100 MG CAPSULE PO ×2 (09:35→21:16)
[2022-10-07] MEDS: Sertraline HCL 100 MG TABLET 200 MG PO (09:35)
[2022-10-07] MEDS: Potassium Chloride ER 20 MEQ TAB.ER.PRT PO (09:35)
[2022-10-07] MEDS: 0.9 % Sodium Chloride Flush 3 ML SYRINGE IVFLUSH ×3 (09:35→22:50)
[2022-10-07] MEDS: hydrOXYzine HCL 50 MG TABLET PO ×3 (09:36→21:13)
[2022-10-07] MEDS: polyethylene glycoL 3350 17 GM POWD.PACK PO (09:36)
[2022-10-07] MEDS: Aspirin 81 MG TAB.CHEW PO (09:36)
[2022-10-07] MEDS: OXcarbazepine 300 MG TABLET PO ×2 (09:36→21:11)
[2022-10-07] MEDS: Atorvastatin Calcium 80 MG TABLET PO (09:36)
[2022-10-07] MEDS: Sennosides/Docusate Sodium TABLET 2 TAB PO ×2 (09:36→21:10)
[2022-10-07] MEDS: Enoxaparin Sodium 60 MG/0.6 ML SYRINGE 45 MG SUBCUT ×2 (09:40→21:10)
[2022-10-07] MEDS: Ketorolac Tromethamine 15 MG/ML VIAL IVPUSH (11:35)
--- NOTE | 2022-10-07 12:07 | P.CONCA_ITS ---
History of Present Illness History of Present Illness Date of Service: 10/07/22 Chief complaint: Overdose, hypothermia, aspiration pneumonia Narrative: This is a cardiology consultation regarding elevated troponins. Patient has been admitted for fentanyl overdose. It seems that patient's boyfriend noted her to be unresponsive and in that setting, she was given Narcan. Then EMS called. She was slightly hypoxic. Then she was post during her extremities and then got Versed. In this setting, she was admitted. She was found to be having high white cell count and acidosis. High sensitivity troponins were checked and they were elevated. Patient has pleuritic chest pain when she breathes but nothing else. No previous cardiac issues. Listed to have bipolar disorder and psychiatric issues. Review of Systems Review of Systems: Yes all other systems are reviewed and are negative Constitutional: Constitutional: Reports as per HPI and Reports no additional constitutional complaints Eyes: Eyes: Reports as per HPI and Denies no additional eye complaints ENT: Denies system reviewed and no additional complaints, except as documented and Reports as per HPI Cardiovascular: Cardiovascular: Reports as per HPI, Reports no additional cardiovascular complaints, Denies acrocyanosis, Denies cool extremities, Denies chest pain, Denies leg edema, Denies lightheadedness, Denies palpitations and Denies dyspnea Respiratory: Respiratory: Reports as per HPI, Denies no additional respiratory complaints, Reports pain on inspiration, Reports pain with cough and Denies dyspnea Gastrointestinal: Gastrointestinal: Reports as per HPI and Denies no additional gastrointestinal complaints Genitourinary: Genitourinary: Reports as per HPI Musculoskeletal: Musculoskeletal: Reports no additional musculoskeletal complaints and Reports as per HPI Integumentary/Breasts: Skin/Breast: Reports system reviewed and no additional complaints, except as docu Neurologic: Reports system reviewed and no additional complaints, except as documented and Reports as per HPI Psychiatric: Psychiatric: Reports no additional psychiatric complaints and Reports as per HPI Endocrine: Endocrine: Reports no additional endocrine complaints, Reports as per HPI and Denies palpitations Hematologic/Lymphatic: Hematologic/Lymphatic: Reports no additional hematologic/lymphatic complaints and Reports as per HPI Allergic/Immunologic: Allergic/Immunologic: Reports no additional allergic/immunologic complaints and Reports as per HPI PMFSH Past Medical History Medical History Acquired hypothyroidism Bipolar illness Generalized anxiety disorder GERD (gastroesophageal reflux disease) Posttraumatic stress disorder Family History Family History Father HIV (human immunodeficiency virus infection) CKD (chronic kidney disease) Substance use disorder Mother Hepatitis C Bilateral cataracts Maternal Grandmother Diabetes CVD (cardiovascular disease) Brother No problems noted. Brother No problems noted. Brother No problems noted. Sister No problems noted. Other Mental health disorder Surgical History Surgical History History of eye surgery History of foot surgery Social History Social History Household Members Other:: [employer] RED[employer]ELOP[employer]IST lives upstairs from her. Housing: Condominium Do you presently have visiting nurse or other home services: Yes ([employer] lives upstairs, hours increased to include night hours. 24 hours/week) Alcohol intake: current Alcohol intake frequency: a few times a week Patient Tobacco Use Status: Former Tobacco user Quit Date: quit 13 years ago Tobacco use type: Cigarette e-Cigarette/Vaping Use: Never Used Second Hand Smoke Exposure: Yes (outside only) Substance Use Type: Marijuana service: No Current occupational status: disabled Cognitive needs: Yes (walker) Hearing needs: No Vision needs: No Meds Allergies Allergy/AdvReac Type Severity Reaction Status Date / Time hair dye Allergy Unknown Unknown Verified 10/29/21 10:57 Active Medications: Current Medications Acetaminophen (Acetaminophen Supp 650 Mg Supp.Rect) 650 mg TN Q6H PRN PRN Reason: Pain, Mild (Pain Scale 1-3) Aspirin (Aspirin 81 Mg Tab.Chew) 81 mg PO DAILY [facility] Last Admin: 10/07/22 09:36 Dose: 81 mg Atorvastatin Calcium (Atorvastatin Calcium 80 Mg Tablet) 80 mg PO DAILY [facility] Last Admin: 10/07/22 09:36 Dose: 80 mg Enoxaparin Sodium (Enoxaparin Sodium 60 Mg/0.6 Ml Syringe) 45 mg SUBCUT Q12H [facility] Last Admin: 10/07/22 09:40 Dose: 45 mg Gabapentin (Gabapentin 100 Mg Capsule) 100 mg PO BID [facility] Last Admin: 10/07/22 09:35 Dose: 100 mg Hydroxyzine HCl (Hydroxyzine Hcl 50 Mg Tablet) 50 mg PO TID [facility] Last Admin: 10/07/22 09:36 Dose: 50 mg Ampicillin Sodium/Sulbactam (Sodium 3 gm/ Sodium Chloride) 100 mls @ 200 mls/hr IV Q6H [facility] Last Infusion: 10/07/22 10:27 Dose: Infused Levothyroxine Sodium (Levothyroxine Sodium 75 Mcg Tablet) 75 mcg PO DAILY@0600 [facility] Last Admin: 10/07/22 06:17 Dose: 75 mcg Lorazepam (Lorazepam 1 Mg Tablet) 1 mg PO TID [facility] Last Admin: 10/07/22 09:35 Dose: 1 mg Omeprazole (Omeprazole 20 Mg Capsule.Dr) 20 mg PO DAILY@0630 [facility] Last Admin: 10/07/22 06:17 Dose: 20 mg Ondansetron HCl (Ondansetron Hcl 4 Mg/2 Ml Vial) 4 mg IVPUSH Q8H PRN PRN Reason: Nausea and Vomiting Oxcarbazepine (Oxcarbazepine 300 Mg Tablet) 300 mg PO BID [facility] Last Admin: 10/07/22 09:36 Dose: 300 mg Polyethylene Glycol (Polyethylene Glycol 3350 17 Gm Powd.Pack) 17 gm PO DAILY [facility] Last Admin: 10/07/22 09:36 Dose: 17 gm Quetiapine Fumarate (Quetiapine Fumarate 50 Mg Tablet) 50 mg PO BID [facility] Last Admin: 10/07/22 09:35 Dose: 50 mg Quetiapine Fumarate (Quetiapine Fumarate 400 Mg Tablet) 400 mg PO BEDTIME [facility] Last Admin: 10/06/22 22:38 Dose: 400 mg Senna/Docusate Sodium (Sennosides/Docusate Sodium Tablet) 2 tab PO BID [facility] Last Admin: 10/07/22 09:36 Dose: 2 tab Sertraline HCl (Sertraline Hcl 100 Mg Tablet) 200 mg PO DAILY [facility] Last Admin: 10/07/22 09:35 Dose: 200 mg Sodium Chloride (0.9 % Sodium Chloride Flush 3 Ml Syringe) 3 ml IVFLUSH QSHIFT [facility] Last Admin: 10/07/22 09:35 Dose: 3 ml Home Medications Medication Instructions Recorded Confirmed Last Taken Type hydroxyzine pamoate 50 mg capsule 50 mg PO TID 03/31/20 10/06/22 Unknown History oxcarbazepine 300 mg tablet 300 mg PO BID 03/31/20 10/06/22 Unknown History quetiapine 400 mg tablet 400 mg PO BEDTIME 03/31/20 10/06/22 Unknown History quetiapine 50 mg tablet (Seroquel) 50 mg PO BID 03/31/20 10/06/22 Unknown History sertraline 100 mg tablet (Zoloft) 200 mg PO DAILY 03/31/20 10/06/22 Unknown History lorazepam 1 mg tablet 1 mg PO TID 09/02/20 10/06/22 02/06/21 07:30 History Physical Exam Vital Signs: Vital Signs: Last Vital Signs Temp 97.4 F 10/07/22 11:44 Pulse 89 10/07/22 11:44 Resp 20 10/07/22 11:44 BP 121/70 10/07/22 11:44 Pulse Ox 98 10/07/22 11:44 O2 Del Method Nasal Cannula 10/07/22 11:44 O2 Flow Rate 2 10/07/22 11:44 Oxygen Flow Rate 12 10/05/22 22:52 BMI result Body Mass Index 20.1 Const: General: comfortable and no acute distress Orientation/consciousness: patient oriented x3 HEENT: Other: Unremarkable Head: Yes normal to inspection Neck: Neck: Yes normal visual inspection Chest: Chest palpation & inspection: normal inspection of the chest Resp: Auscultation: rhonchi and diminished lung sounds Cardio: Palpation: normal PMI Heart sounds: S1 normal heart sound present, S2 normal heart sound present, no gallops, no murmurs and no rubs GI: Palpation (GI): Soft to palpation Back/Spine/Pelvis: Other: unremarkable Skin: General skin exam: no rashes or lesions noted Neuro: General: patient oriented x3 Extrem: General: Yes normal to inspection Psych: Mental Status: mental status grossly normal Objective Labs and Meds 10/07/22 06:57 10/07/22 06:57 Lab results: Laboratory Results - last 24 hr 10/06/22 10/07/22 10/07/22 10:18 06:57 06:57 WBC 12.5 H RBC 3.57 L D Hgb 10.3 L D Hct 32.1 L D MCV 89.9 MCH 28.9 MCHC 32.1 RDW 13.6 Plt Count 247 D MPV 11.3 Absolute Nucleated RBC 0.000 Nucleated RBC % (auto) 0.0 Sodium Potassium Chloride Carbon Dioxide Anion Gap BUN Creatinine Estim Creat Clear Calc Estimated GFR Random Glucose Calcium Magnesium Total Bilirubin AST ALT Alkaline Phosphatase Troponin I High Sens 58.6 H* D Total Protein Albumin Procalcitonin 0.96 10/07/22 06:57 WBC RBC Hgb Hct MCV MCH MCHC RDW Plt Count MPV Absolute Nucleated RBC Nucleated RBC % (auto) Sodium 145 Potassium 3.2 L Chloride 114 H Carbon Dioxide 22 Anion Gap 12 BUN 7 L Creatinine 0.66 Estim Creat Clear Calc 70.0 Estimated GFR > 60 Random Glucose 107 Calcium 8.3 L D Magnesium 2.3 Total Bilirubin 0.3 AST 24 ALT 16 Alkaline Phosphatase 85 Troponin I High Sens Total Protein 6.1 L Albumin 3.3 L Procalcitonin ECG Interpretation: EKG with sinus rhythm at 99/Min; no significant ST-T changes; normal TN and corrected QT. Assessment and Plan (1) Demand ischemia: Status: Acute (2) Non-ST elevation myocardial infarction (NSTEMI): Status: Acute (3) Overdose: Status: Acute (4) Acidosis, lactic: Status: Acute Plan Troponins are 135, 258, [address] shows aspiration bronchiolitis/pneumonia. There is mention of coronary artery calcification. Echocardiogram with LVEF 58%. Basal inferolateral hypokinesis. Otherwise unremarkable. Suspect demand related troponin leak related to overdose. Unlikely to be primary event. Use Lovenox for 48 hours. Aspirin. Statins. Treat primary cause. If she is willing to follow, can arrange appointment for further care. Discussed with Dr. Faye. Time Spent With Patient Time: Total time managing care of this patient today ____ minutes. Procedures Date of Service Date of Service: 10/07/22
--- NOTE | 2022-10-07 13:06 | P.PNIM_ITS ---
Subjective Subjective Date of Service: 10/07/22 Interval History: c/o pleuritic chest pain down to 2L O2 via NC no cough very anxious; labile mood positive suicidality screen; has sitter Review of Systems Review of Systems: Yes all other systems are reviewed and are negative Physical Exam Vital Signs: Vital Signs: Last Vital Signs Temp 97.4 F 10/07/22 11:44 Pulse 89 10/07/22 11:44 Resp 20 10/07/22 11:44 BP 121/70 10/07/22 11:44 Pulse Ox 98 10/07/22 11:44 O2 Del Method Nasal Cannula 10/07/22 11:44 O2 Flow Rate 2 10/07/22 11:44 Oxygen Flow Rate 12 10/05/22 22:52 BMI result Body Mass Index 20.1 Gen: anxious HEENT: sclera anicteric, moist mucus membranes Neck: supple Lungs: bilateral inspiratory crackles Heart: regular rate and rhythm, no murmurs Abd: soft, non-tender, non-distended Ext: no edema Skin: warm/well-perfused Neuro: alert and oriented x3, no focal findings Psych: anxious Objective Data Active Medications Acetaminophen (Acetaminophen Supp 650 Mg Supp.Rect) 650 mg MS Q6H PRN PRN Reason: Pain, Mild (Pain Scale 1-3) Aspirin (Aspirin 81 Mg Tab.Chew) 81 mg PO DAILY [facility] Last Admin: 10/07/22 09:36 Dose: 81 mg Documented By: MELIA Atorvastatin Calcium (Atorvastatin Calcium 80 Mg Tablet) 80 mg PO DAILY [facility] Last Admin: 10/07/22 09:36 Dose: 80 mg Documented By: MELIA Enoxaparin Sodium (Enoxaparin Sodium 60 Mg/0.6 Ml Syringe) 45 mg SUBCUT Q12H [facility] Last Admin: 10/07/22 09:40 Dose: 45 mg Documented By: MELIA Gabapentin (Gabapentin 100 Mg Capsule) 100 mg PO BID [facility] Last Admin: 10/07/22 09:35 Dose: 100 mg Documented By: MELIA Hydroxyzine HCl (Hydroxyzine Hcl 50 Mg Tablet) 50 mg PO TID [facility] Last Admin: 10/07/22 09:36 Dose: 50 mg Documented By: MELIA Ampicillin Sodium/Sulbactam (Sodium 3 gm/ Sodium Chloride) 100 mls @ 200 mls/hr IV Q6H [facility] Last Infusion: 10/07/22 10:27 Dose: 0 mls/hr Documented By: MELIA Levothyroxine Sodium (Levothyroxine Sodium 75 Mcg Tablet) 75 mcg PO DAILY@0600 [facility] Last Admin: 10/07/22 06:17 Dose: 75 mcg Documented By: BOUBACAR Lorazepam (Lorazepam 1 Mg Tablet) 1 mg PO TID [facility] Last Admin: 10/07/22 09:35 Dose: 1 mg Documented By: MELIA Omeprazole (Omeprazole 20 Mg Capsule.Dr) 20 mg PO DAILY@0630 [facility] Last Admin: 10/07/22 06:17 Dose: 20 mg Documented By: BOUBACAR Ondansetron HCl (Ondansetron Hcl 4 Mg/2 Ml Vial) 4 mg IVPUSH Q8H PRN PRN Reason: Nausea and Vomiting Oxcarbazepine (Oxcarbazepine 300 Mg Tablet) 300 mg PO BID [facility] Last Admin: 10/07/22 09:36 Dose: 300 mg Documented By: MELIA Polyethylene Glycol (Polyethylene Glycol 3350 17 Gm Powd.Pack) 17 gm PO DAILY [facility] Last Admin: 10/07/22 09:36 Dose: 17 gm Documented By: MELIA Quetiapine Fumarate (Quetiapine Fumarate 50 Mg Tablet) 50 mg PO BID [facility] Last Admin: 10/07/22 09:35 Dose: 50 mg Documented By: MELIA Quetiapine Fumarate (Quetiapine Fumarate 400 Mg Tablet) 400 mg PO BEDTIME [facility] Last Admin: 10/06/22 22:38 Dose: 400 mg Documented By: BOUBACAR Senna/Docusate Sodium (Sennosides/Docusate Sodium Tablet) 2 tab PO BID [facility] Last Admin: 10/07/22 09:36 Dose: 2 tab Documented By: MELIA Sertraline HCl (Sertraline Hcl 100 Mg Tablet) 200 mg PO DAILY [facility] Last Admin: 10/07/22 09:35 Dose: 200 mg Documented By: MELIA Sodium Chloride (0.9 % Sodium Chloride Flush 3 Ml Syringe) 3 ml IVFLUSH QSHIFT [facility] Last Admin: 10/07/22 09:35 Dose: 3 ml Documented By: MELIA Labs 10/07/22 06:57 10/07/22 06:57 Labs: Laboratory Results - last 24 hr 10/06/22 10/07/22 10/07/22 10:18 06:57 06:57 MCV 89.9 MCH 28.9 MCHC 32.1 RDW 13.6 Plt Count 247 D MPV 11.3 Absolute Nucleated RBC 0.000 Nucleated RBC % (auto) 0.0 Anion Gap 12 Estim Creat Clear Calc 70.0 Estimated GFR > 60 Random Glucose 107 Calcium 8.3 L D Magnesium 2.3 Total Bilirubin 0.3 AST 24 ALT 16 Alkaline Phosphatase 85 Total Protein 6.1 L Albumin 3.3 L Procalcitonin 0.96 Microbiology Microbiology Results: Microbiology 10/05/22 23:29 Blood Culture - Preliminary Blood - Venous No growth after 24 hours. 10/05/22 23:29 Blood Culture - Preliminary Blood - Venous No growth after 24 hours. Assessment and Plan (1) Non-ST elevation myocardial infarction (NSTEMI): Status: Acute (2) Aspiration pneumonia: Status: Acute Plan 56yo F with bipolar disorder, PTSD, and EDWARD presenting after unintentional fentanyl overdose requiring total 8 mg intranasal naloxone to reverse.? Found to have hypothermia and hypoxia from aspiration pneumonia, as well as NSTEMI acute hypoxic respiratory failure due to aspiration pneumonia due to unintentional fentanyl overdose - wean supplemental O2 as tolerated - IV ampicillin-sulbactam d2 - Recovery Team/Addiction Medicine consulted - HIV and HCV screens negative NSTEMI - CT chest with coronary artery calcification. TTE with LVEF 58% + basal inferolateral hypokinesis - Cardiology consulted. Likely demand ischemia. 48h of therapeutic enoxaparin. continue ASA, atorvastatin. f/u as outpt for ischemic workup lactic acidosis - resolved after reversal of overdose and fluid resuscitation SI - sitter, Psychiatry evaluation once medically cleared bipolar disorder PTSD EDWARD - oxcarbazepine, gabapentin, hydroxyzine, sertraline, quetiapine, lorazepam hypothyroidism - LT4 GERD - PPI VTE ppx - LMWH dispo - needs psychiatry evaluation In my clinical judgment, the patient requires continued inpatient hospitalization for the following reasons: IV ABX, O2 Time Spent With Patient Time: Total time managing care of this patient today _45___ minutes. Quality Stroke Does the patient have a stroke diagnosis?: No VTE Prior VTE?: No VTE Risk Level:: Medical - moderate - high VTE Device Contraindication: N/A - Device Ordered VTE Drug Contraindication: N/A - Med Ordered
[2022-10-07] MEDS: QUEtiapine Fumarate 400 MG TABLET PO (21:11)
[2022-10-07] MEDS: Ketorolac Tromethamine 30 MG/ML VIAL IVPUSH (22:04)
[2022-10-08] MEDS: Ampicillin Sodium/Sulbactam Na 3 GM in 0.9 % Sodium Chloride 100 ML IV ×2 (01:34→07:54)
[2022-10-08 04:00] VITALS: BP 125/64; PULSE 91; RESP 20; TEMP 36.8; O2SAT 94
[2022-10-08] MEDS: Levothyroxine Sodium 75 MCG TABLET PO (06:27)
[2022-10-08] MEDS: Omeprazole 20 MG CAPSULE.DR PO (06:27)
[2022-10-08 07:16] VITALS: BP 128/71; PULSE 82; RESP 20; TEMP 36.3; O2SAT 96
[2022-10-08] MEDS: hydrOXYzine HCL 50 MG TABLET PO (07:48)
[2022-10-08] MEDS: OXcarbazepine 300 MG TABLET PO (07:48)
[2022-10-08] MEDS: Atorvastatin Calcium 80 MG TABLET PO (07:48)
[2022-10-08] MEDS: LORazepam 1 MG TABLET PO (07:48)
[2022-10-08] MEDS: Gabapentin 100 MG CAPSULE PO (07:49)
[2022-10-08] MEDS: Sertraline HCL 100 MG TABLET 200 MG PO (07:49)
[2022-10-08] MEDS: QUEtiapine Fumarate 50 MG TABLET PO (07:49)
[2022-10-08] MEDS: 0.9 % Sodium Chloride Flush 3 ML SYRINGE IVFLUSH (07:57)
[2022-10-08 08:31] LABS: Hematocrit 34.9 % (37.0-47.0); Hemoglobin 11.4 g/dl (12.0-16.0); Mean Corpuscular HGB Conc 32.7 g/dl (31.0-35.0); Mean Corpuscular Hemoglobin 28.9 pg (27.0-33.0); Mean Corpuscular Volume 88.6 fL (80.0-98.0); Mean Platelet Volume 11.2 fL (9.4-12.3); Platelet Count 282 X10*3/uL (160-400); Red Blood Count 3.94 X10*6/uL (4.20-5.50); Red Cell Distribution Width 13.5 % (11.0-16.0); White Blood Count 11.9 X10*3/uL (4.8-10.8)
[2022-10-08] MEDS: Lidocaine 4 % Patch ADH..PATCH 1 PATCH TRANSDERMA (09:07)
[2022-10-08] MEDS: Aspirin 81 MG TAB.CHEW PO (09:08)
[2022-10-08] MEDS: Amoxicillin/Potassium Clav 875 MG TABLET PO (09:09)
[2022-10-08] MEDS: Enoxaparin Sodium 60 MG/0.6 ML SYRINGE 45 MG SUBCUT (09:09)
[2022-10-08 09:56] LABS: Alanine Aminotransferase 36 U/L (0-31); Albumin Level 3.4 g/dL (3.5-5.0); Alkaline Phosphatase 93 U/L (39-117); Anion Gap 16 (12-20); Aspartate Amino Transferase 54 U/L (5-31); Bilirubin Total 0.5 mg/dL (0.0-1.0); Blood Urea Nitrogen 10 mg/dL (9-16); Calcium 8.7 mg/dL (8.4-10.2); Carbon Dioxide 20 mmol/L (22-29); Chloride 114 mmol/L (96-108); Creatinine Clr Calc Pharmacy 64.1; Estimated Glomerular Filt Rate > 60; Glucose Random 88 mg/dL (60-115); Magnesium 1.9 mg/dL (1.6-2.6); Potassium 3.6 mmol/L (3.3-5.1); Sodium 146 mmol/L (135-145); Total Protein 6.7 g/dL (6.5-8.0)
[2022-10-08 10:10] LABS: Procalcitonin 0.59 ng/mL
[2022-10-08] MEDS: bisacodyL 10 MG SUPP.RECT PR (10:17)
[2022-10-08] MEDS: Sodium Chloride 0.65 % Nasal 44 ML SPRBTL 1 SPRAY NOSTRIL-B (10:19)
--- NOTE | 2022-10-08 11:05 | MHC.CARE ---
Pt cleared by CARE team,see assessment.
[2022-10-08 11:22] VITALS: BP 127/72; PULSE 101; RESP 20; TEMP 36.9; O2SAT 97
--- NOTE | 2022-10-08 12:49 | PM.DS ---
DS: Providers Provider Date of Service: 10/08/22 Date of admission: 10/06/22 08:33 Date of discharge: 10/08/22 Primary care physician: Devaughn Doan MD Consults: 10/06/22 07:25 Addiction Medicine Routine Consulting Provider: Addiction Covering Reason for consultation: overdose fentanyl 10/06/22 16:42 Consult to Cardiology Routine Consulting Provider: [facility] Cardiovascular Services Reason for consultation: elev AURORA higgins on TTE 10/08/22 08:19 Consult to Care Team Stat Comment: Reason for consultation: SI/PTSD/bipolar, sitter, medically cleard Consult to Crisis Stat Reason for consultation: SI, bipolar/PTSD/anxiety, medically cleared DS: Diagnosis Discharge Diagnosis (1) Non-ST elevation myocardial infarction (NSTEMI): Status: Acute (2) Aspiration pneumonia: Status: Acute (3) Acute respiratory failure with hypoxia: Status: Acute (4) Accidental overdose: Status: Acute (5) Demand ischemia: Status: Acute (6) Acidosis, lactic: Status: Acute (7) Posttraumatic stress disorder: Status: Acute (8) Bipolar illness: Status: Acute (9) Generalized anxiety disorder: Status: Acute (10) Postmenopausal bleeding: Status: Acute DS: Summary Hospital Course Hospital Course: from my admission H+P, 10/06/22: 56yo F with bipolar disorder, EDWARD, and PTSD brought in by EMS after an overdose.? History difficult to obtain, as the patient has extreme mood lability and, while awake and alert, is quite agitated and anxious about what happened.? However, per the ED physician Tequila Stephen: patient comes emergency room via ambulance after an overdose.? According to EMS, the patient's boyfriend noted that the patient was unresponsive at the neighbor's house, he carried her back home.? At home, he gave her 4 mg of Narcan, then called EMS.? EMS reports that the patient's oxygen saturation has been in the high 80s/ low 90s. ? in the? ambulance per EMS, patient started posturing upper extremities and neck, she was given 2 mg IM of Versed.? ? On arrival to the ED, patient's oxygen saturation in the mid 60s on 4 L of oxygen, patient was given ? 4 mg intranasal Narcan, and was started on OxyMask, oxygen saturation improved to? 100%.? Patient still altered, unable to give any history. ? CT of the chest showed aspiration bronchiolitis / pneumonia. ? Labs showed WBCs of 18k with 86% PMNs, venous pH of 7.21, lactate of 11.5, bicarbonate of 16. ? High-sen Tn-I was 135, then 258, then 295.? After resuscitation with 3L of IV NS and 1 dose of piperacillin-tazobactam, lactate is now 2.? Temperature is 97.7 with BP 100/71.? Urine toxicology was positive for fentanyl, THC, and BZPs.? She is on chronic lorazepam.? When I saw her, she had woken up and was upset.? She denies intentionally or knowingly taking fentanyl.? She did smoke THC and wonders if it was laced.? Currently denies any fever, chills, cough, chest pain, or dyspnea.? Denies hallucinations, SI, or HI. 56yo F with bipolar disorder, PTSD, and EDWARD presenting after unintentional fentanyl overdose requiring total 8 mg intranasal naloxone to reverse.? Found to have hypothermia and hypoxia from aspiration pneumonia, as well as NSTEMI. Hospital course by problem: acute hypoxic respiratory failure due to aspiration pneumonia due to unintentional fentanyl overdose - Treated with IV ampicillin-sulbactam for 48 hours and weaned off supplemental oxygen. - Blood cultures negative at 48 hours; procalcitonin came down appropriately. - Recovery Team/Addiction Medicine consulted and the patient was counseled on the dangers of ingesting anything that might be laced with fentanyl. Her history regarding the ingestion was inconsistent and vague. - HIV and HCV screens negative. NSTEMI - CT chest with coronary artery calcification.? TTE with LVEF 58% + basal inferolateral hypokinesis. Cardiology consulted.? Likely demand ischemia.? Treated with 48h of therapeutic enoxaparin.? Started on ASA and atorvastatin.? Will need to follow up with [facility] Cardiology as outpatient for ischemic workup. lactic acidosis - Resolved after reversal of overdose and fluid resuscitation. postmenopausal spotting - Had a small amount of vaginal spotting while on enoxaparin. Menopause was over 1 year prior. Pelvic US was ordered but the patient refused to have it done as an inpatient. She was instructed to follow up with [facility] Gynecology for further evaluation and the pelvic US can be done as an outpatient. PTSD EDWARD bipolar disorder - Initially sitter placed due to question of suicidal statement but after extensive evaluation by the behavioral health team, she was deemed not a risk to herself or others and will follow up with her outpatient psychiatrist and counselor. Time Spent with Patient Time attestation: Total time managing care of this patient today __45__ minutes. Discharge coordination time: Greater than 30 minutes Quality: Safe Use of Opioids Does Pt have an Active Cancer Diagnosis on the Problem List?: No Quality: Stroke Does the patient have a stroke diagnosis?: No Physical Exam Vital Signs: Vital Signs: Last Vital Signs Temp 98.4 F 10/08/22 11:22 Pulse 101 H 10/08/22 11:22 Resp 20 10/08/22 11:22 BP 127/72 10/08/22 11:22 Pulse Ox 97 10/08/22 11:22 O2 Del Method Room Air 10/08/22 11:22 O2 Flow Rate 2 10/07/22 16:00 Oxygen Flow Rate 12 10/05/22 22:52 BMI result Body Mass Index 20.1 Gen: in no acute distress HEENT: sclera anicteric, moist mucus membranes Neck: supple Lungs: clear to auscultation bilaterally Heart: regular rate and rhythm, no murmurs Abd: soft, non-tender, non-distended Ext: no edema Skin: warm/well-perfused Neuro: alert and oriented x3, no focal findings Psych: anxious DS: Data Data Completed and Pending Completed studies during hospitalization [Text1]: Laboratory Results WBC 11.9 X10*3/uL (4.8-10.8) H 10/08/22 08:03 RBC 3.94 X10*6/uL (4.20-5.50) L 10/08/22 08:03 Hgb 11.4 g/dl (12.0-16.0) L 10/08/22 08:03 Hct 34.9 % (37.0-47.0) L 10/08/22 08:03 MCV 88.6 fL (80.0-98.0) 10/08/22 08:03 MCH 28.9 pg (27.0-33.0) 10/08/22 08:03 MCHC 32.7 g/dl (31.0-35.0) 10/08/22 08:03 RDW 13.5 % (11.0-16.0) 10/08/22 08:03 Plt Count 282 X10*3/uL (160-400) 10/08/22 08:03 MPV 11.2 fL (9.4-12.3) 10/08/22 08:03 Immature Gran % (Auto) 1.8 % (0.0-0.4) H 10/06/22 00:14 Neut % (Auto) 86.4 % (45-73) H 10/06/22 00:14 Lymph % (Auto) 6.1 % (20-40) L 10/06/22 00:14 Mccone % (Auto) 5.2 % (2-11) 10/06/22 00:14 Eos % (Auto) 0.1 % (0-4) 10/06/22 00:14 Baso % (Auto) 0.4 % (0-2) 10/06/22 00:14 Lymph # (Auto) 1.1 X10*3/uL (1.2-4.9) L 10/06/22 00:14 Mccone # (Auto) 0.9 X10*3/uL (0.1-1.2) 10/06/22 00:14 Eos # (Auto) 0.0 X10*3/uL (0.0-0.4) 10/06/22 00:14 Baso # (Auto) 0.1 X10*3/uL (0.0-0.2) 10/06/22 00:14 Abs Immat Gran (auto) 0.33 X10*3/uL (0.00-0.03) H 10/06/22 00:14 Absolute Neuts (auto) 15.5 x10*3/uL (2.0-8.3) H 10/06/22 00:14 Absolute Nucleated RBC 0.000 X10*3/uL (0.0-0.012) 10/08/22 08:03 Nucleated RBC % (auto) 0.0 /100WBC (0.0-0.2) 10/08/22 08:03 PT 10.6 SEC (11.1-13.3) L 10/06/22 00:14 INR 0.9 (0.9-1.1) 10/06/22 00:14 VBG pH 7.21 (7.32-7.43) L 10/06/22 00:19 VBG pCO2 41 mmHg 10/06/22 00:19 VBG pO2 48 mmHg 10/06/22 00:19 VBG HCO3 17 mmol/L (22-26) L 10/06/22 00:19 VBG O2 Saturation 76.0 % 10/06/22 00:19 VBG Base Excess -10.3 mmol/L 10/06/22 00:19 Sodium 146 mmol/L (135-145) H 10/08/22 08:03 Potassium 3.6 mmol/L (3.3-5.1) 10/08/22 08:03 Chloride 114 mmol/L (96-108) H 10/08/22 08:03 Carbon Dioxide 20 mmol/L (22-29) L 10/08/22 08:03 Anion Gap 16 (12-20) 10/08/22 08:03 BUN 10 mg/dL (9-16) 10/08/22 08:03 Creatinine 0.72 mg/dL (0.5-1.4) 10/08/22 08:03 Estim Creat Clear Calc 64.1 10/08/22 08:03 Estimated GFR > 60 10/08/22 08:03 Random Glucose 88 mg/dL (60-115) 10/08/22 08:03 Lactic Acid 11.5 mmol/L (0.5-2.0) H* 10/05/22 23:30 Lactic Acid F/U @ 2Hr 2.0 mmol/L (0.5-2.0) 10/06/22 02:07 Calcium 8.7 mg/dL (8.4-10.2) 10/08/22 08:03 Magnesium 1.9 mg/dL (1.6-2.6) 10/08/22 08:03 Total Bilirubin 0.5 mg/dL (0.0-1.0) 10/08/22 08:03 Direct Bilirubin < 0.2 mg/dL (0.0-0.5) 10/06/22 00:14 AST 54 U/L (5-31) H 10/08/22 08:03 ALT 36 U/L (0-31) H 10/08/22 08:03 Alkaline Phosphatase 93 U/L (39-117) 10/08/22 08:03 Ammonia 40 umol/L (13-55) 10/06/22 00:14 Total Creatine Kinase 212 U/L (26-140) H 10/06/22 10:18 Troponin I High Sens 58.6 ng/L (<3.5-17.0) H* D 10/07/22 06:57 Total Protein 6.7 g/dL (6.5-8.0) 10/08/22 08:03 Albumin 3.4 g/dL (3.5-5.0) L 10/08/22 08:03 Lipase 22 U/L (8-78) 10/06/22 00:14 Procalcitonin 0.59 ng/mL 10/08/22 08:03 TSH 3.76 uIU/mL (0.32-4.0) 10/06/22 00:14 Urine Color Yellow 10/05/22 23:34 Urine Appearance Clear 10/05/22 23:34 Urine pH 5.0 (5.0-9.0) 10/05/22 23:34 Ur Specific [place] 1.010 (1.005-1.025) 10/05/22 23:34 Urine Protein 30 (1+) mg/dL (Neg-Trace) H 10/05/22 23:34 Urine Glucose (UA) >=1000 mg/dL (Negative) H 10/05/22 23:34 Urine Ketones Negative mg/dL (Negative) 10/05/22 23:34 Urine Blood Trace (Negative) H 10/05/22 23:34 Urine Nitrite Negative (Negative) 10/05/22 23:34 Ur Leukocyte Esterase Negative (Negative) 10/05/22 23:34 Urine RBC 0-2 /HPF (0-2) 10/05/22 23:34 Urine WBC 0-5 /HPF (0-5) 10/05/22 23:34 Ur Squamous Epith Cells 0-2 /HPF (0-2) 10/05/22 23:34 Urine Bacteria None Seen (None Seen) 10/05/22 23:34 Hyaline Casts 3-5 /LPF (0-2) 10/05/22 23:34 Salicylates < 5.0 mg/dL (15-30) L 10/06/22 00:14 Urine Opiates Screen Not Detected (Not Detect) 10/05/22 23:34 Urine Fentanyl Screen POSITIVE (Not Detect) H 10/05/22 23:34 Acetaminophen < 17 mcg/mL (<30) 10/06/22 00:14 Ur Barbiturates Screen Not Detected (Not Detect) 10/05/22 23:34 Ur Phencyclidine Scrn Not Detected (Not Detect) 10/05/22 23:34 Ur Amphetamines Screen Not Detected (Not Detect) 10/05/22 23:34 U Benzodiazepines Scrn POSITIVE (Not Detect) H 10/05/22 23:34 Urine Cocaine Screen Not Detected (Not Detect) 08 23:34 U Marijuana (THC) Screen POSITIVE (Not Detect) H 10/05/22 23:34 Ethyl Alcohol 12 mg/dL 10/06/22 00:18 COVID-19 (STACEY) Negative (Negative) 10/06/22 00:14 COVID-19 Clin Com See Note 10/06/22 00:14 Hepatitis C Ab (EIA) Nonreactive (Nonreactive) 10/06/22 10:18 HIV 1&2 Ab/P24 Ag 4thGn Nonreactive (Nonreactive) 10/06/22 10:18 Impressions Chest X-Ray 10/05/22 23:28 IMPRESSION: No acute cardiopulmonary findings. Chest CT 10/06/22 06:15 IMPRESSION: * Findings compatible with aspiration bronchiolitis / pneumonia as described. * There is a 5 mm nodule in the right upper lobe laterally which is unrelated to the infectious process. Per the 2017 revised Fleischner Society guidelines, no routine follow up is necessarily required in low-risk patients, and consideration of 12-month followup CT is recommended for patients at high-risk for the development of pulmonary neoplasm. Discharge Plan Discharge Anticipated Discharge Date/Time: 10/08/22 12:45 Patient Disposition: Home, Self-Care Discharge Diagnosis: acute hypoxic respiratory failure due to aspiration pneumonia due to unintentional fentanyl overdose NSTEMI lactic acidosis postmenopausal spotting Referrals: Catarino Chavira MD [Physician] - 2 Weeks Devaughn Doan MD [Primary Care Provider] - 1 Week Delvin Recinos MD [Physician] - 2 Weeks Discharge Medications: New atorvastatin 80 mg Tablet 80 mg PO DAILY Qty: 30 0RF aspirin 81 mg Tablet,Chewable 81 mg PO DAILY Qty: 30 0RF amoxicillin-pot clavulanate 875-125 mg Tablet 875 mg PO Q12H Qty: 10 0RF Continued (DME) commode Kit See Rx Instructions .Route Qty: 1 0RF Rx Instructions: As directed omeprazole 20 mg capsule,delayed release(DR/EC) 20 mg PO DAILY Qty: 90 1RF gabapentin 100 mg capsule 100 mg PO BID Qty: 180 1RF levothyroxine 75 mcg tablet 75 mcg PO DAILY Qty: 90 1RF quetiapine 400 mg tablet 400 mg PO BEDTIME quetiapine [Seroquel] 50 mg tablet 50 mg PO BID oxcarbazepine 300 mg tablet 300 mg PO BID hydroxyzine pamoate 50 mg capsule 50 mg PO TID sertraline [Zoloft] 100 mg tablet 200 mg PO DAILY lorazepam 1 mg tablet 1 mg PO TID Discharge Orders: Discharge Order (Routine); Ordered 10/08/22 Ordered By: Andrea Faye Diet: Advance to usual diet Activity on Discharge: As tolerated Stand Alone Forms: Patient Portal Discharge page Care Plan Goals: recovery from overdose and pneumonia Health Concerns: acute hypoxic respiratory failure due to aspiration pneumonia due to unintentional fentanyl overdose NSTEMI lactic acidosis postmenopausal spotting Plan of Treatment: take amoxicillin-clavulanate 875-125 mg twice daily for 5 days take aspirin and atorvastatin follow up with Cardiology for further cardiac workup follow up with Gynecology for evaluation of postmenopausal spotting. you will need a pelvic US. We ordered it as an inpatient but you did not want to wait for it to be done, so it may be done as an outpatient avoid substance of abuse and avoid ingesting anything that might be contaminated by fentanyl follow up with your psychiatrist and counselor Please follow up with your primary care doctor within 1 week. Return to the hospital if you experience recurrent or worsening symptoms. Assessment: See Discharge Summary.
--- NOTE | 2022-10-08 14:09 | PC.NURSE ---
pt was informed about pelvic US at 11:45 and agreed to do it. at 1345 pt was agitated, wanting to leave AMA.Pt has hx of PTSD, anxiety and bipolar. notified to explain the importance of pelvic US. pt did not agree to do as inpatient nor outpatient. pt keeps yelling to staffs and doctors that she wants to leave AMA. pt was explaining follow ups, tests, and meds that pt need to do once she is discharged. pt instantly using inappropriate words and attitudes toward staffs. pt finally signed out AMA and witnessed by 2nd staff nurse
--- NOTE | 2022-10-08 14:09 | PC.NURSE ---
pt was informed about pelvic US at 11:45 and agreed to do it. at 1445 pt was agitated, wanting to leave AMA.Pt has hx of PTSD, anxiety and bipolar. notified to explain the importance of pelvic US. pt did not agree to do as inpatient nor outpatient. pt keeps yelling to staffs and doctors that she wants to leave AMA. pt was explaining follow ups, tests, and meds that pt need to do once she is discharged. pt instantly using inappropriate words and attitudes toward staffs. pt finally signed out AMA and witnessed by 2nd staff nurse.
--- NOTE | 2022-10-08 15:16 | P.CDIM_ITS ---
PROVIDER RESPONSE TEXT: To clarify, the appropriate diagnosis supported by the clinical indicators: Acute QUERY TEXT: PHYSICIAN'S DOCUMENTATION REQUEST Date of Query: 10/07/2022 01:27 PM EDT Patient Name: Racheal Meyer Admit Date: 10/06/2022 Dear Andrea Faye, A review of the medical record indicates additional documentation may be needed. Please review below and update the documentation accordingly. Clinical Indicators: Per Hospitalist Progress Note 10/07/22: lactic acidosis - resolved after reversal of overdose and fluid resuscitation LA on 10/05/22: 11.5 LA on 10/06/22: 2.0 Clarify which of the following accurately represents the acuity of the Lactic acidosis. Possible options might include: Acute Acute on chronic Compensated Chronic stable condition Remission Other (explain)Clinically unable to determine (explain)Thank you, Annalise Bonilla RN Use of terms such as suspected, likely, concern for, or probable (associated with a specific diagnosi s that is being evaluated, monitored, or treated as if it exists) are acceptable and can be coded in the inpatient se tting, when documented at the time of discharge. Please use your independent medical judgment in providing your response. THIS QUERY IS PART OF THE PERMANENT MEDICAL RECORD
== END 2022-10-08 14:15 | disposition left against medical advice (07) | DRG 917 ==
LOC: HO.ED 10-06 06:04 → HO.EDOVER 10-06 08:49 → HO.IMC 10-06 15:25
PROVIDERS: Admitting Provider Family Medicine; Emergency Provider Emergency Medicine; PCP Internal Medicine; Visit Provider Family Medicine
DX: T40.411A Poisoning by fentanyl or fentanyl analogs, accidental (unintentional), initial encounter (principal); J69.0 Pneumonitis due to inhalation of food and vomit; J96.01 Acute respiratory failure with hypoxia; I24.8 Other forms of acute ischemic heart disease; E87.21 Acute metabolic acidosis; F43.10 Post-traumatic stress disorder, unspecified; Y90.0 Blood alcohol level of less than 20 mg/100 ml; E03.9 Hypothyroidism, unspecified; N95.0 Postmenopausal bleeding; R68.0 Hypothermia, not associated with low environmental temperature; F31.9 Bipolar disorder, unspecified; F41.1 Generalized anxiety disorder; Z20.822 Contact with and (suspected) exposure to COVID-19; Z87.891 Personal history of nicotine dependence; Z79.82 Long term (current) use of aspirin; Z79.890 Hormone replacement therapy; Z79.899 Other long term (current) drug therapy
CPT/HCPCS: 36415; 71045; 71250; 80048; 80053; 80076; 80143; 80179; 80307; 81001; 82140; 82550; 82803; 83605; 83690; 83735; 84145; 84443; 84484; 85025; 85027; 85610; 86803; 87040; 87389; 87635; 93005; 93306; 99285; J0295; J1650; J1885; J2405; J2543; J3475; Q9957; S9485

== ENCOUNTER → 2022-10-05 23:15 | Outpatient (BNV) | payer OTHER, SELFPAY | PROVIDERS: Admitting Provider Family Medicine; Emergency Provider Emergency Medicine; Visit Provider Internal Medicine | DX: R00.0 Tachycardia, unspecified (principal); R94.31 Abnormal electrocardiogram [ECG] [EKG] | CPT/HCPCS: 93010 ==

== ENCOUNTER → 2022-10-06 07:00 | Outpatient (BNV) | payer OTHER, SELFPAY | PROVIDERS: Admitting Provider Family Medicine; Emergency Provider Emergency Medicine; Visit Provider Internal Medicine | DX: R94.31 Abnormal electrocardiogram [ECG] [EKG] (principal) | CPT/HCPCS: 93010; 93306 ==

== ENCOUNTER → 2022-10-06 08:33 | Outpatient (BNV) | payer OTHER, SELFPAY | PROVIDERS: Admitting Provider Family Medicine; Emergency Provider Emergency Medicine; Visit Provider Family Medicine | DX: I21.4 Non-ST elevation (NSTEMI) myocardial infarction (principal); J69.0 Pneumonitis due to inhalation of food and vomit; J96.01 Acute respiratory failure with hypoxia; I24.8 Other forms of acute ischemic heart disease; T50.901A Poisoning by unspecified drugs, medicaments and biological substances, accidental (unintentional), initial encounter; E87.20 Acidosis, unspecified; F43.10 Post-traumatic stress disorder, unspecified; F31.9 Bipolar disorder, unspecified; F41.1 Generalized anxiety disorder; N95.0 Postmenopausal bleeding | CPT/HCPCS: 99223; 99232; 99239 ==

== ENCOUNTER → 2022-10-06 08:33 | Outpatient (BNV) | payer OTHER, SELFPAY | PROVIDERS: Admitting Provider Family Medicine; Emergency Provider Emergency Medicine; PCP Internal Medicine; Visit Provider Internal Medicine | DX: I24.8 Other forms of acute ischemic heart disease (principal); I21.4 Non-ST elevation (NSTEMI) myocardial infarction; T50.901A Poisoning by unspecified drugs, medicaments and biological substances, accidental (unintentional), initial encounter; E87.20 Acidosis, unspecified | CPT/HCPCS: 99222 ==

== ENCOUNTER 2022-10-21 08:20 | Outpatient (AMB) | payer OTHER, SELFPAY ==
[2022-10-21 08:26] VITALS: BP 118/82; PULSE 97; O2SAT 98; BMI 18.3
--- NOTE | 2022-10-21 08:26 | A.OFFPC_ITS ---
Vital Signs 10/21/22 08:26 Height 4 ft 9.87 in Weight 87 lb 4 oz BMI 18.3 BP 118/82 Blood Pressure Location Lt brachial Position Sitting Pulse 97 Pulse Source Pulse Oximeter Pulse Oximetry (%) 98 Oxygen Delivery Method Room Air Intake Visit Reasons: [facility] 10/15/22 Allergies hair dye Allergy (Unknown, Verified 10/21/22 08:59) Unknown Medication List - Last Reconciled 10/21/22 by Devaughn Doan MD aspirin 81 mg PO DAILY atorvastatin 80 mg PO DAILY commode As directed gabapentin 100 mg PO BID hydroxyzine pamoate 50 mg PO TID levothyroxine 75 mcg PO DAILY lorazepam 1 mg PO TID omeprazole 20 mg PO DAILY oxcarbazepine 300 mg PO BID quetiapine (Seroquel) 50 mg PO BID quetiapine 400 mg PO BEDTIME sertraline (Zoloft) 200 mg PO DAILY Tobacco use date assessed: 10/21/22 Dental Screening Dental Screen Date: 10/21/22 Did you have a dental visit in the last 12 months?: No Did you have a dental problem in the last 6 months where you did not have access to dental care?: No HPI [facility] 10/15/22 HPI Details 56-year-old female presents to the office to discuss her chronic medical conditions. Patient has severe anxiety and substance use issues. She had overdosed and was admitted to the hospital last week. Patient had metabolic acidosis and was treated with aggressive hydration. She also had a minor cardiac event and was seen by a email manager. She left against medical advice. Anxiety and substance use are her major concerns. She does see a psychiatrist at [facility] was put her on medications. Currently patient rents a [employer], has a [employer] up stairs. She is disabled due to her mental health issues. [facility] Medical History Acquired hypothyroidism Bipolar illness Generalized anxiety disorder GERD (gastroesophageal reflux disease) Posttraumatic stress disorder Surgical History History of eye surgery History of foot surgery Family History Father HIV (human immunodeficiency virus infection) CKD (chronic kidney disease) Substance use disorder Mother Hepatitis C Bilateral cataracts Maternal Grandmother Diabetes CVD (cardiovascular disease) Brother No problems noted. Brother No problems noted. Brother No problems noted. Sister No problems noted. Other Mental health disorder Social History Household Members Other:: CITLALI lives upstairs from her. Housing: Condominium Do you presently have visiting nurse or other home services: Yes ([employer] lives upstairs, hours increased to include night hours. 24 hours/week) Alcohol intake: current Alcohol intake frequency: a few times a week Patient Tobacco Use Status: Former Tobacco user Quit Date: quit 13 years ago Tobacco use type: Cigarette e-Cigarette/Vaping Use: Never Used Second Hand Smoke Exposure: Yes (outside only) Substance Use Type: Marijuana service: No Current occupational status: disabled Cognitive needs: Yes (walker) Hearing needs: No Vision needs: No Questionnaire PHQ-9 Over the last 2 weeks, how often have you been bothered by any of the following problems? Depression Screening Interpretation: Positive Depression Screening Follow-up: Existing condition and In treatment 12448 - PHQ-9 Billing: Patient declined-do not bill Source: Developed by Drs. David Salazar, Tamara Grider, Mendoza Nolan and colleagues, with an educational laurie from [employer]. Thrive Questionnaire Date Thrive assessed: 10/07/22 What is your living situation today?: I choose not to answer this question Within the past 12 months, did the food you bought not last and you didn't have the money to get more?: I choose not to answer this question Within the past 12 months, did you worry whether your food would run out before you got money to buy more?: I choose not to answer this question Do you have trouble paying for medicines?: I choose not to answer this question Do you have trouble getting transportation to medical appointments?: I choose not to answer this question Do you have trouble paying your heating and electricity bill?: I choose not to answer this question Do you have trouble taking care of your child, family member or friend?: I choose not to answer this question Do you have trouble with day-to-day activities such as bathing, preparing meals, shopping, managing finances, etc.?: I choose not to answer this question Are you currently unemployed and looking for a job?: I choose not to answer this question Are you interested in more education?: I choose not to answer this question AUDIT C Alcohol Use Questionnaire (AUDIT-C) 1. How often do you have a drink containing alcohol?: Monthly or less 2. How many drinks containing alcohol do you have on a typical day when you are drinking?: 1 or 2 Total Score: 1 EDWARD-7 AMB Questionnaire EDWARD-7 Date EDWARD - 7 assessed: 10/29/21 Source: Developed by Drs. David Salazar, Tamara Grider, Mendoza Nolan and colleagues, with an educational laurie from [employer]. EDWARD-7 Assessment Billing EDWARD-7 Assessment Tool: pt declined-do not bill Physical exam (Primary Care) Vital Signs: Last Vital Signs Pulse 97 10/21/22 08:26 BP 118/82 10/21/22 08:26 Pulse Ox 98 10/21/22 08:26 Oxygen Delivery Method Room Air 10/21/22 08:26 Care Plan Goal for BP management: Blood pressure is stable. Continue current medications. BMI result Body Mass Index 18.3 Tobacco/Smoking Status: Tobacco use Status Tobacco use date assessed 10/21/22 10/21/22 08:35 Patient Tobacco Use Status Former Tobacco user 10/21/22 08:35 Tobacco use type Cigarette 10/21/22 08:35 e-Cigarette/Vaping Use Never Used 10/21/22 08:35 Depression Screening Interpretation: Positive Depression Screening Follow-up: Existing condition and In treatment Thrive Assessment: Date of Thrive Assessment Date Thrive assessed 10/07/22 10/21/22 08:35 Const General: cooperative, healthy appearing and comfortable [facility] Head: Yes normal to inspection and Yes atraumatic Eyes General: appearance normal, both eyes and all related structures Neck Neck: Yes normal visual inspection and Yes full ROM Chest Chest palpation & inspection: normal inspection of the chest Resp Effort & Inspection: normal respiratory effort Auscultation: clear to auscultation bilaterally Cardio Jugular venous distension: no JVD Palpation: normal PMI Rate: regular rate Heart sounds: S1 normal heart sound present and S2 normal heart sound present GI Palpation (GI): Soft to palpation and No hepatosplenomegaly present Extrem General: Yes normal to inspection and Yes full ROM Assessment and Plan Assessment & Plan (1) Generalized anxiety disorder: Code(s): F41.1 - Generalized anxiety disorder (2) Bipolar illness: Code(s): F31.9 - Bipolar disorder, unspecified Plan: Patient continues to have uncontrolled anxiety. I suggested she talk to her provider and her medication needs adjustment. She has agreed to do so. (3) Non-ST elevation myocardial infarction (NSTEMI): Code(s): I21.4 - Non-ST elevation (NSTEMI) myocardial infarction Plan: A cardiology appointment will be scheduled for her. Atorvastatin and aspirin prescriptions have been refilled. (4) Substance use disorder: Code(s): F19.90 - Other psychoactive substance use, unspecified, uncomplicated Plan: She will discuss this with her psychiatrist. Coding Level of Care Code Est Pt Level 4 (35444) Diagnoses Generalized anxiety disorder F41.1 Bipolar illness F31.9 Non-ST elevation myocardial infarction (NSTEMI) I21.4 Substance use disorder F19.90
== END 2022-10-21 08:55 | disposition home or self-care (01) ==
PROVIDERS: PCP Internal Medicine; Visit Provider Internal Medicine
DX: F41.1 Generalized anxiety disorder (principal); F31.9 Bipolar disorder, unspecified; F19.90 Other psychoactive substance use, unspecified, uncomplicated; I21.4 Non-ST elevation (NSTEMI) myocardial infarction
CPT/HCPCS: 99214

== ENCOUNTER 2022-10-21 09:10 | Outpatient (REF) | payer OTHER, SELFPAY ==
[2022-10-21 10:03] LABS: Hematocrit 39.6 % (37.0-47.0); Hemoglobin 12.9 g/dl (12.0-16.0); Mean Corpuscular HGB Conc 32.6 g/dl (31.0-35.0); Mean Corpuscular Hemoglobin 29.1 pg (27.0-33.0); Mean Corpuscular Volume 89.4 fL (80.0-98.0); Mean Platelet Volume 10.7 fL (9.4-12.3); Platelet Count 502 X10*3/uL (160-400); Red Blood Count 4.43 X10*6/uL (4.20-5.50); Red Cell Distribution Width 13.5 % (11.0-16.0); White Blood Count 8.8 X10*3/uL (4.8-10.8)
[2022-10-21 11:03] LABS: Alanine Aminotransferase 13 U/L (0-31); Albumin Level 4.3 g/dL (3.5-5.0); Alkaline Phosphatase 107 U/L (39-117); Anion Gap 14 (12-20); Aspartate Amino Transferase 20 U/L (5-31); Bilirubin Direct < 0.2 mg/dL (0.0-0.5); Bilirubin Total 0.2 mg/dL (0.0-1.0); Blood Urea Nitrogen 17 mg/dL (9-16); Calcium 9.2 mg/dL (8.4-10.2); Carbon Dioxide 22 mmol/L (22-29); Chloride 109 mmol/L (96-108); Cholesterol 187 mg/dL; Estimated Glomerular Filt Rate > 60; Glucose Random 97 mg/dL (60-115); HDL Cholesterol 79 mg/dL; LDL Cholesterol Calculated 96 mg/dl; Potassium 4.3 mmol/L (3.3-5.1); Sodium 141 mmol/L (135-145); Total Protein 7.9 g/dL (6.5-8.0); Triglycerides 64 mg/dL
[2022-10-21 11:08] LABS: Thyroid Stimulating Hormone 1.84 uIU/mL (0.32-4.0)
== END 2022-10-21 09:11 | disposition home or self-care (01) ==
LOC: HO.LAB 09:10
PROVIDERS: PCP Internal Medicine; Visit Provider Internal Medicine
DX: E03.9 Hypothyroidism, unspecified (principal); F19.90 Other psychoactive substance use, unspecified, uncomplicated; I21.4 Non-ST elevation (NSTEMI) myocardial infarction
CPT/HCPCS: 36415; 80048; 80061; 80076; 84443; 85027

== ENCOUNTER 2023-03-18 14:42 | Outpatient (AMB) | payer OTHER, SELFPAY ==
[2023-03-18 14:43] VITALS: BP 120/84; PULSE 67; BMI 18.6
--- NOTE | 2023-03-18 14:43 | A.OFFVIS_ITS ---
Intake Vital Signs 03/18/23 14:43 Height 4 ft 9 in Weight 85 lb 15.684 oz BMI 18.6 BP 120/84 Blood Pressure Location Rt brachial Position Sitting Pulse 67 Pulse Source Pulse Oximeter Intake Visit Reasons: s/p nonstemi HS-30m Sanitation Technician Required: No Allergies hair dye Allergy (Unknown, Verified 03/18/23 14:47) Unknown Medication List - Last Reconciled 03/18/23 by BIANKA Garces aspirin 81 mg PO DAILY atorvastatin 80 mg PO DAILY commode As directed diaper,brief,adult,disposable (Prevail PM Brief Medium) As directed size small disposable gloves As directed gabapentin 100 mg PO BID hydroxyzine pamoate 50 mg PO TID levothyroxine 75 mcg PO DAILY lorazepam 1 mg PO TID omeprazole 20 mg PO DAILY oxcarbazepine 300 mg PO BID quetiapine (Seroquel) 50 mg PO BID quetiapine 400 mg PO BEDTIME sertraline (Zoloft) 200 mg PO DAILY [Shower grab bar As directed] HPI s/p nonstemi HS-30m HPI Details Racheal is a 57-year-old female with past medical history of GERD, substance abuse, bipolar illness who was [place] [facility] [place] after being found unresponsive. She was treated for fentanyl overdose and noted to have aspiration pneumonia, elevated troponins with demand ischemia. She was managed medically then signed out AMA after 2 days. Today she presents for her 1st post hospital follow-up. She tells me that the fentanyl overdose was accidental and that people were trying to kill her. She says she did not do that to herself and does not use fentanyl. She believes that someone laced her marijuana. She smokes marijuana daily but says she gets it from a dispensary. This is causing her much upset and she is tearful at the visit. She says she has been getting pains in her chest which occur randomly. She does not engage in much physical activity. She ambulates on steadily and says she is supposed to use a walker but it is too cumbersome. She denies shortness of breath, lightheadedness, presyncope, syncope, PND, orthopnea or edema. She says she has been taking her meds as directed including her aspirin and atorvastatin. She is concerned that her heart has been damaged. She says she lives alone with her small dog. [facility] Medical History Generalized anxiety disorder Bipolar illness Posttraumatic stress disorder Acquired hypothyroidism GERD (gastroesophageal reflux disease) Surgical History History of foot surgery History of eye surgery Family History Father HIV (human immunodeficiency virus infection) CKD (chronic kidney disease) Substance use disorder Mother Hepatitis C Bilateral cataracts Maternal Grandmother Diabetes CVD (cardiovascular disease) Brother No problems noted. Brother No problems noted. Brother No problems noted. Sister No problems noted. 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 Housing: [facility] Do you presently have visiting nurse or other home services: Yes (WINDOW COVERING SALES CONSULTANT lives upstairs, hours increased to include night hours. 24 hours/week) Alcohol intake: current Alcohol intake frequency: a few times a week Comment: 1:1 sitter SI Patient Tobacco Use Status: Former Tobacco user Quit Date: quit 13 years ago Tobacco use type: Cigarette e-Cigarette/Vaping Use: Never Used Second Hand Smoke Exposure: Yes (outside only) Substance Use Type: Marijuana service: No Current occupational status: disabled Cognitive needs: Yes (walker) Hearing needs: No Vision needs: No Review of Systems Const All systems reviewed & are unremarkable except as noted in HPI and below ENT Denies dizziness Card Details: Unsteadiness with ambulation Reports chest pain, Reports chest pain at rest, Denies chest pain with activity, Denies rapid heart rate, Denies pedal edema, Denies edema, Denies leg edema, Denies lightheadedness, Denies palpitations, Denies dyspnea, Denies dyspnea on exertion and Denies orthopnea Resp Denies cough, Denies dyspnea and Denies dyspnea on exertion GI Denies hematochezia and Denies change in stool character Musc Reports abnormal gait, Denies limited range of motion, Denies muscle cramps, Reports muscle weakness, Denies numbness, Denies radiating pain into limb, Denies stiffness and Denies tingling Neuro Reports abnormal gait, Denies dizziness, Denies numbness and Denies tingling Endo Denies palpitations Physical Exam Vital Signs: Last Vital Signs Pulse 67 03/18/23 14:43 BP 120/84 03/18/23 14:43 BMI result Body Mass Index 18.6 Const Other: Thin frail middle-aged female, tearful during visit General: no acute distress and anxious Orientation/consciousness: patient oriented x3 Neck Neck: Yes normal visual inspection Resp Effort & Inspection: normal respiratory effort Auscultation: clear to auscultation bilaterally, no rales, no rhonchi and no wheezes Cardio Jugular venous distension: no JVD Rate: regular rate Rhythm: regular rhythm Heart sounds: S1 normal heart sound present, S2 normal heart sound present, no murmurs and no rubs Neuro General: patient oriented x3 Extrem General: Yes normal to inspection, No no pedal edema and No calf tenderness Psych Appearance: grossly normal Mental Status: mental status grossly normal Speech and movement: Normal speech and movement present Assessment & Plan Assessment & Plan (1) Non-ST elevation myocardial infarction (NSTEMI): Code(s): I21.4 - Non-ST elevation (NSTEMI) myocardial infarction Plan: [facility] [place] following accidental fentanyl overdose. Troponins elevated up to 295. EKG did not show acute ST or T-wave abnormalities. Echocardiogram showed EF 58%, basal inferior lateral hypokinesis. A chest CT did show aspiration bronchiolitis, pneumonia. She was noted to have coronary calcifications. She was thought to have a secondary NSTEMI in the setting of demand. She has no cardiac history. She does have cardiac risk factor of subst ance abuse. She currently admits to smoking marijuana daily. She reports atypical sounding chest discomfort. She is interested in further cardiac testing to make sure that her heart is okay. Will order a pharmacological nuclear stress test to evaluate for any ischemia. She will not be able to walk on the treadmill as she is unsteady with ambulation. Plan to call her with test results. Continue aspirin and atorvastatin. [place] LDL less than 100. Labs done on 10/21/2022 had shown LDL 96. At that time she was started on atorvastatin. She does follow with her PCP, routine labs can be ordered by him. Cardiology office visit 6 months, sooner if needed (2) Demand ischemia: Code(s): I24.8 - Other forms of acute ischemic heart disease Plan: As above (3) Substance use disorder: Code(s): F19.90 - Other psychoactive substance use, unspecified, uncomplicated Plan: As above Plan Time spent on chart review, documentation, interview and assessment Orders: Orders CA lexiscan stress w no Today I21.4 - Non-ST elevation (NSTEMI) myocardial infarction NM cardiolite stress test Today F19.90 - Other psychoactive substance use, unspecified, uncomplicated, I21.4 - Non-ST elevation (NSTEMI) myocardial infarction Coding Level of Care Code Est Pt Level 4 (82848) Diagnoses Non-ST elevation myocardial infarction (NSTEMI) I21.4 Demand ischemia I24.8 Substance use disorder F19.90 Time Spent (min) 28
== END 2023-03-18 15:19 | disposition home or self-care (01) ==
PROVIDERS: PCP Internal Medicine; Visit Provider Nurse Practitioner Family
DX: I21.4 Non-ST elevation (NSTEMI) myocardial infarction (principal); I24.8 Other forms of acute ischemic heart disease; F19.90 Other psychoactive substance use, unspecified, uncomplicated
CPT/HCPCS: 99214

== ENCOUNTER → 2023-03-18 14:42 | Outpatient (BNVA) | payer OTHER, SELFPAY | PROVIDERS: PCP Internal Medicine; Visit Provider Nurse Practitioner Family | DX: I24.89 Other forms of acute ischemic heart disease (principal); I25.2 Old myocardial infarction; F19.90 Other psychoactive substance use, unspecified, uncomplicated | CPT/HCPCS: 99212 ==

== ENCOUNTER 2023-04-07 10:09 | Emergency (ER) | payer OTHER, SELFPAY ==
[2023-04-07 10:15] VITALS: BP 130/98; PULSE 120; RESP 18; TEMP 36.7; O2SAT 95; BMI 17.3
--- NOTE | 2023-04-07 11:03 | ED.EXTPRO ---
HPI - Extremity Problem General Chief complaint: Extremity Problem Stated complaint: Infection under toe nails Time Seen by Provider: 04/07/23 10:34 Source: patient, RN notes reviewed and old records reviewed Mode of arrival: ambulatory History of Present Illness HPI Narrative: 37-year-old female with a past medical history CAD, substance abuse, bipolar, anxiety, hypothyroid, GERD, presenting to the ED complaining of acute on chronic left great toenail fungus with surrounding erythema. Denies fever/chills. Admits to doing warm compresses at home with small amount of pus drainage. Denies injury Related Data Home Medications Medication Instructions Recorded Confirmed hydroxyzine pamoate 50 mg capsule 50 mg PO TID 03/31/20 03/18/23 oxcarbazepine 300 mg tablet 300 mg PO BID 03/31/20 03/18/23 quetiapine 400 mg tablet 400 mg PO BEDTIME 03/31/20 03/18/23 quetiapine 50 mg tablet (Seroquel) 50 mg PO BID 03/31/20 03/18/23 sertraline 100 mg tablet (Zoloft) 200 mg PO DAILY 03/31/20 03/18/23 lorazepam 1 mg tablet 1 mg PO TID 09/02/20 03/18/23 Previous Rx's Medication Instructions Recorded commode #1 ea 04/15/21 disposable gloves #100 ea 10/22/22 omeprazole 20 mg capsule,delayed 20 mg PO DAILY #90 caps 11/01/22 release gabapentin 100 mg capsule 100 mg PO BID #180 caps 11/05/22 levothyroxine 75 mcg tablet 75 mcg PO DAILY #90 tabs 03/01/23 Shower grab bar #1 ea 03/15/23 diaper,brief,adult,disposable #96 ea 03/15/23 (Prevail PM Brief Medium) aspirin 81 mg chewable tablet 81 mg PO DAILY #30 tabs 03/29/23 atorvastatin 80 mg tablet 80 mg PO DAILY #30 tabs 03/29/23 efinaconazole 10 % topical 1 appl topical BEDTIME 2 months #4 04/07/23 solution with applicator mL mupirocin 2 % topical ointment 1 appl topical BID #15 grams 04/07/23 Allergies Allergy/AdvReac Type Severity Reaction Status Date / Time hair dye Allergy Unknown Unknown Verified 03/18/23 14:47 Review of Systems Review of Systems: Constitutional: No Fever, No Chills ENT/Mouth: No Ear Pain, No Nasal Congestion, No sore throat, No Rhinorrhea, No Swallowing Difficulty Cardiovascular: No Chest Pain, No SOB Respiratory: No Cough, No Sputum, No Wheezing Gastrointestinal: No Nausea, No Vomiting, No Diarrhea, No Abdominal pain Musculoskeletal: No joint pain, No Myalgias, No Joint Swelling Skin: +Skin Lesions, No rash Neuro: No Weakness Yes all other systems are reviewed and are negative Constitutional: Constitutional: Reports as per [facility] Past Medical History Attestation statement: The following information was validated with the patient. Source: old records reviewed Medical History Generalized anxiety disorder Bipolar illness Posttraumatic stress disorder Acquired hypothyroidism GERD (gastroesophageal reflux disease) Surgical History History of foot surgery History of eye surgery Family History Family History Father HIV (human immunodeficiency virus infection) CKD (chronic kidney disease) Substance use disorder Mother Hepatitis C Bilateral cataracts Maternal Grandmother Diabetes CVD (cardiovascular disease) Brother No problems noted. Brother No problems noted. Brother No problems noted. Sister No problems noted. 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 Housing: Condominium Do you presently have visiting nurse or other home services: Yes (PROTOTYPE MODEL MAKER lives upstairs, hours increased to include night hours. 24 hours/week) Alcohol intake: current Alcohol intake frequency: a few times a week Comment: 1:1 sitter SI Patient Tobacco Use Status: Former Tobacco user Quit Date: quit 13 years ago Tobacco use type: Cigarette e-Cigarette/Vaping Use: Never Used Second Hand Smoke Exposure: Yes (outside only) Substance Use Type: Marijuana Advance Directives: No Advance Directives Information Provided: Yes service: No Current occupational status: disabled Cognitive needs: Yes (walker) Hearing needs: No Vision needs: No Physical Exam Vital Signs: Vital Signs: Last Vital Signs Temp 98.1 F 04/07/23 10:15 Pulse 110 H 04/07/23 11:09 Resp 18 04/07/23 10:15 BP 130/98 H 04/07/23 10:15 Pulse Ox 96 04/07/23 11:09 O2 Del Method Room Air 04/07/23 11:09 BMI result Body Mass Index 17.3 Const: General: cooperative, healthy appearing and no acute distress Orientation/consciousness: patient oriented x3 Limitations: no limitations HEENT: Head: Yes normal to inspection and Yes atraumatic Ears: hearing grossly normal bilaterally General nose exam: Normal external nose present Face and sinus: Yes normal facial exam Eyes: General: appearance normal, both eyes and all related structures EOM: EOMs intact bilaterally Neck: Neck: Yes normal visual inspection and Yes no meningeal signs Resp: Effort & Inspection: normal respiratory effort and no respiratory distress Cardio: Rate: regular rate Skin: Other: + bilateral great toe onychomycosis > worse on the left. Left great toe with noted paronychia/erythema. No fluctuance/induration or pus drainage. Wounds: no wounds Neuro: General: patient oriented x3, tone normal and no meningeal signs Cranial nerves: Yes CN's II-XII intact bilaterally Gait exam (Neuro): Normal gait present Extrem: General: Yes normal to inspection Medical Decision Making Medical Decision Making MDM Narrative: 37-year-old female with a past medical history CAD, substance abuse, bipolar, anxiety, hypothyroid, GERD, presenting to the ED complaining of acute on chronic left great toenail fungus with surrounding erythema. On exam tachycardic, anxious, NAD/nontoxic appearing, physical exam as noted above with onychomycosis and paronychia. 18 gauge needle used to drain paronychia with bloody drainage expressed, no pus. Concern for early superficial infection. Low suspicion for osteomyelitis. No evidence of gangrene. No streaking or crepitus Plan: Topical azole, topical mupirocin, dermatology/podiatry follow-up Please refer to course for remaining clinical decision making, interpretation of labs/imaging results, and discussions with consultants and/or family members. Results discussed with patient including worrisome signs and symptoms and strict return precautions, and when to return to the emergency department. They verbalized understanding and feel safe for discharge at this time. Differential Diagnosis Differential Diagnoses: The differential diagnosis associated with the presentation includes As above External Record Review External record reviewed: Inpatient record, Office record, Outpatient record, Prior outpatient labs, Prior outpatient radiology, Primary care record and Outside ED record Tests considered The following testing was considered but not selected: As above Prescription Management I considered prescription management with: Pain Medication and Antibiotic Procedures Abscess I/D Site: foot Side (if applicable): left Technique: needle aspiration Sent for culture/gram staining?: No Irrigation: No Packing used?: none Discharge Plan Discharge Clinical Impression: Fungal nail infection, Paronychia of great toe Patient Disposition: Home, Self-Care Instructions: Paronychia (ED) Additional Instructions: You have nail fungus. Please use Efinaconazole on her toenails as directed Mupirocin as a topical antibiotic ointment, use to surrounding skin infection You need to follow-up with conditioning room worker/controls design engineer If area looks worse, as increasing swelling/redness or drainage return to the emergency department Prescriptions: New efinaconazole 10 % solution with applicator 1 appl topical BEDTIME 60 Days Qty: 4 0RF Rx Instructions: Apply to toenail mupirocin 2 % ointment 1 appl topical BID Qty: 15 0RF No Action (DME) commode Kit See Rx Instructions .Route Qty: 1 0RF Rx Instructions: As directed (DME) disposable gloves Misc See Rx Instructions .Route Qty: 100 5RF Rx Instructions: As directed omeprazole 20 mg capsule,delayed release(DR/EC) 20 mg PO DAILY Qty: 90 1RF gabapentin 100 mg capsule 100 mg PO BID Qty: 180 1RF levothyroxine 75 mcg tablet 75 mcg PO DAILY Qty: 90 1RF (DME) Prevail PM Brief Medium Misc See Rx Instructions .Route Qty: 96 5RF Rx Instructions: As directed size small (DME) Shower grab bar See Rx Instructions .Route .MEDSUPPLY Qty: 1 0RF Rx Instructions: As directed aspirin 81 mg tablet,chewable 81 mg PO DAILY Qty: 30 2RF atorvastatin 80 mg tablet 80 mg PO DAILY Qty: 30 2RF quetiapine 400 mg tablet 400 mg PO BEDTIME quetiapine [Seroquel] 50 mg tablet 50 mg PO BID oxcarbazepine 300 mg tablet 300 mg PO BID hydroxyzine pamoate 50 mg capsule 50 mg PO TID sertraline [Zoloft] 100 mg tablet 200 mg PO DAILY lorazepam 1 mg tablet 1 mg PO TID Referrals: [facility] [Outside] Wilton Pavon MD [Physician] - Mario Pavon DPM [Physician] -
[2023-04-07 11:09] VITALS: PULSE 110; O2SAT 96
== END 2023-04-07 11:23 | disposition home or self-care (01) ==
PROVIDERS: Emergency Provider Emergency Medicine; PCP Internal Medicine
DX: L03.032 Cellulitis of left toe (principal); B35.1 Tinea unguium; R00.0 Tachycardia, unspecified
CPT/HCPCS: 10160; 99283; 99284

== ENCOUNTER 2023-05-12 10:49 | Outpatient (AMB) | payer OTHER, SELFPAY ==
--- NOTE | 2023-05-12 11:05 | A.OFFPC_ITS ---
Vital Signs 05/12/23 11:07 Height 4 ft 10 in Weight 84 lb 4 oz BMI 17.6 BP 100/64 Blood Pressure Location Lt brachial Position Sitting Pulse 86 Pulse Source Pulse Oximeter Pulse Oximetry (%) 96 Oxygen Delivery Method Room Air Intake Visit Reasons: 6 mth f/ u Intake Note: Patient is here to follow up on GERD, Hypothyroidism, Bipolar illness. Street Light Servicer Required: No Computer System Specialist: Not Required per policy Accompanied by: Self / Same As Patient Allergies hair dye Allergy (Unknown, Verified 05/12/23 13:23) Unknown Medication List - Last Reconciled 05/12/23 by Devaughn Doan MD aspirin 81 mg PO DAILY atorvastatin 80 mg PO DAILY [cane As directed] commode As directed diaper,brief,adult,disposable (Prevail PM Brief Medium) As directed size small disposable gloves As directed efinaconazole 10% 1 appl topical BEDTIME 2 months gabapentin 100 mg PO BID hydroxyzine pamoate 50 mg PO TID levothyroxine 75 mcg PO DAILY lorazepam 1 mg PO TID mupirocin 2% 1 appl topical BID omeprazole 20 mg PO DAILY oxcarbazepine 300 mg PO BID quetiapine (Seroquel) 50 mg PO BID quetiapine 400 mg PO BEDTIME sertraline (Zoloft) 200 mg PO DAILY [Shower grab bar As directed] Tobacco use date assessed: 05/12/23 Dental Screening Dental Screen Date: 05/12/23 Did you have a dental visit in the last 12 months?: Yes Did you have a dental problem in the last 6 months where you did not have access to dental care?: No Was dental information given to patient?: Patient has dentist HPI 6 mth f/ u HPI Details 57-year-old female presents to the offic e to discuss her medical conditions. Patient comes alone and reports that her STOCK CONTROL CLERK is with her dog in the car. Patient is concerned about the fungal infection in her toenail. She was seen in the emergency room for the same reason. Patient continues to be anxious and started crying in the office. She is following up with her psychiatrist but continues to hear voices. She reports symptoms of urinary incontinence and would like a prescription of diapers. She is also requesting a prescription of a cane. [facility] Medical History Generalized anxiety disorder Bipolar illness Posttraumatic stress disorder Acquired hypothyroidism GERD (gastroesophageal reflux disease) Surgical History History of foot surgery History of eye surgery Family History Father HIV (human immunodeficiency virus infection) CKD (chronic kidney disease) Substance use disorder Mother Hepatitis C Bilateral cataracts Maternal Grandmother Diabetes CVD (cardiovascular disease) Brother No problems noted. Brother No problems noted. Brother No problems noted. Sister No problems noted. Other Mental health disorder Social History Household Members Other:: CITLALI lives upstairs from her. Housing: [facility] Do you presently have visiting nurse or other home services: Yes (STOCK CONTROL CLERK lives upstairs, hours increased to include night hours. 24 hours/week) Alcohol intake: current Alcohol intake frequency: a few times a week Comment: 1:1 janes SI Patient Tobacco Use Status: Former Tobacco user Quit Date: quit 13 years ago Tobacco use type: Cigarette e-Cigarette/Vaping Use: Never Used Second Hand Smoke Exposure: Yes (outside only) Substance Use Type: Marijuana service: No Current occupational status: disabled Cognitive needs: Yes (walker) Hearing needs: No Vision needs: No Questionnaire PHQ-9 Over the last 2 weeks, how often have you been bothered by any of the following problems? 1. Little interest or pleasure in doing things: more than half the days 2. Feeling down, depressed, or hopeless: more than half the days 3. Trouble falling or staying asleep, or sleeping too much: more than half the days 4. Feeling tired or having little energy: several days 5. Poor appetite or overeating: more than half the days 6. Feeling bad about yourself - or that you are a failure or have let yourself or your family down: nearly every day 7. Trouble concentrating on things, such as reading the newspaper or watching television: more than half the days 8. Moving or speaking so slowly that other people could have noticed. Or the opposite - being so fidgety or restless that you have been moving around a lot more than usual: not at all 9. Thoughts that you would be better off or of hurting yourself in some way: not at all Total score: 14 Depression Screening Interpretation: Positive Depression Screening Done: Yes Source: Developed by Drs. David Salazar, Tamara Grider, Mendoza Nolan and colleagues, with an educational laurie from [employer]. Thrive Questionnaire Date Thrive assessed: 05/12/23 I am a: Patient What is your living situation today?: I have a steady place to live Within the past 12 months, did the food you bought not last and you didn't have the money to get more?: Never true Within the past 12 months, did you worry whether your food would run out before you got money to buy more?: Never true Do you have trouble paying for medicines?: No Do you have trouble getting transportation to medical appointments?: No Do you have trouble paying your heating and electricity bill?: No Do you have trouble taking care of your child, family member or friend?: No Do you have trouble with day-to-day activities such as bathing, preparing meals, shopping, managing finances, etc.?: No Are you currently unemployed and looking for a job?: No Are you interested in more education?: No Currently or been in a relationship where the following occur: no concerns reported THRIVE Score: 0 AUDIT C Alcohol Use Questionnaire (AUDIT-C) 1. How often do you have a drink containing alcohol?: Monthly or less 2. How many drinks containing alcohol do you have on a typical day when you are drinking?: 1 or 2 Total Score: 1 EDWARD-7 AMB Questionnaire EDWARD-7 Date EDWARD - 7 assessed: 05/12/23 Feeling nervous, anxious, or on edge: 3 = Nearly every day Not being able to stop or control worryin = Nearly every day Worrying too much about different things: 3 = Nearly every day Trouble relaxin = More than half the days Being so restless that it is hard to sit still: 2 = More than half the days Becoming easily annoyed or irritable: 3 = Nearly every day Feeling afraid as if something awful might happen: 3 = Nearly every day Total EDWARD-7 score (0-4 normal; 5-9 mild; 10-14 moderate; 15-21 severe): 19 Source: Developed by Drs. David Salazar, Tamara Grider, Mendoza Nolan and colleagues, with an educational laurie from [employer]. Physical exam (Primary Care) Vital Signs: Last Vital Signs Pulse 86 05/12/23 11:07 BP 100/64 05/12/23 11:07 Pulse Ox 96 05/12/23 11:07 Oxygen Delivery Method Room Air 05/12/23 11:07 BMI result Body Mass Index 17.6 Tobacco/Smoking Status: Tobacco use Status Tobacco use date assessed 05/12/23 05/12/23 11:09 Patient Tobacco Use Status Former Tobacco user 05/12/23 11:09 Tobacco use type Cigarette 05/12/23 11:09 e-Cigarette/Vaping Use Never Used 05/12/23 11:09 PHQ-9: PHQ-9 Score PHQ-9: Total score 14 05/12/23 11:19 Depression Screening Interpretation: Positive Thrive Assessment: Date of Thrive Assessment Date Thrive assessed 05/12/23 05/12/23 11:09 Currently or been in a relationship where the following occur: no concerns reported Const General: cooperative and healthy appearing Nutritional Appearance: well nourished Orientation/consciousness: patient oriented x3 Limitations: no limitations HENMT Head: Yes normal to inspection Eyes General: appearance normal, both eyes and all related structures Neck Neck: Yes normal visual inspection Chest Chest palpation & inspection: normal palpation of entire chest wall Resp Effort & Inspection: normal respiratory effort Neuro General: patient oriented x3 Extrem Other: Left foot: Great toe has dystrophic nail. Assessment and Plan Assessment & Plan (1) Bipolar illness: Code(s): F31.9 - Bipolar disorder, unspecified Plan: Patient was counseled to see her psychiatrist and see if some medications need to be increased. She should also continue speaking to the therapist. (2) Dystrophic nail: Code(s): L60.3 - Nail dystrophy Plan: I recommended not treating this condition. Medications for treatment will interfere with her other medications. Coding Level of Care Code Est Pt Level 4 (21868) Diagnoses Bipolar illness F31.9 Dystrophic nail L60.3
[2023-05-12 11:07] VITALS: BP 100/64; PULSE 86; O2SAT 96; BMI 17.6
== END 2023-05-12 11:37 | disposition home or self-care (01) ==
PROVIDERS: PCP Internal Medicine; Visit Provider Internal Medicine
DX: F31.9 Bipolar disorder, unspecified (principal); L60.3 Nail dystrophy
CPT/HCPCS: 99214

== ENCOUNTER 2023-06-06 13:54 | Outpatient (REF) | payer OTHER, SELFPAY ==
--- NOTE | ~2023-06-06 | MM_ITS ---
EXAMINATION: MM SCREENING DIGITAL BREAST TOMOSYNTHESIS, BILATERAL CLINICAL INFORMATION: Screening. Asymptomatic. COMPARISON: Mammography: This study is compared with prior exams dating back to 2020. TECHNIQUE: Digital breast tomosynthesis is performed in both the craniocaudal and mediolateral oblique views along with computer-aided detection (CAD). Synthesized 2D images are generated from the tomosynthesis. FINDINGS: There are scattered areas of fibroglandular density (ACR BI-RADS breast composition Category b). There are no significant masses, abnormal calcifications, or other abnormalities. There is a tissue marker present in the upper outer quadrant of the right breast from prior benign percutaneous biopsy. MM/MM tomosynthesis screening BI IMPRESSION: No mammographic evidence of malignancy. ASSESSMENT: BI-RADS BI-RADS 2 - Benign Findings RECOMMENDATION: Routine annual mammography screening. 1 year F/U This examination should not preclude the clinical evaluation of a suspicious palpable abnormality. This patient's information was entered into a reminder system with a target due date for their next mammogram.
== END 2023-06-06 13:55 | disposition home or self-care (01) ==
LOC: HO.MAMMO 13:54
PROVIDERS: PCP Internal Medicine; Visit Provider Internal Medicine
DX: Z12.31 Encounter for screening mammogram for malignant neoplasm of breast (principal)
CPT/HCPCS: 77063; 77067

== ENCOUNTER → 2023-06-06 14:00 | Outpatient (BNV) | payer OTHER, SELFPAY | PROVIDERS: PCP Internal Medicine; Visit Provider Radiology Diagnostic Radiology | DX: Z12.31 Encounter for screening mammogram for malignant neoplasm of breast (principal) | CPT/HCPCS: 77063; 77067 ==

== ENCOUNTER → 2023-06-29 07:43 | Outpatient (REF) | payer OTHER, SELFPAY ==
--- NOTE | ~2023-06-29 | NM_ITS ---
Myocardial perfusion study Indication: Non-ST elevation myocardial infarction to evaluate for myocardial ischemia Technique: The patient was brought in for a Lexiscan perfusion study on 06/29/2023. Patient performed low-level exercise and was injected 0.4 mg of Lexiscan intravenously. Within a minute of injection, 25 mCi of sestamibi was given intravenously. Images were obtained using the SPECT gamma camera interlaced with the gating device. Images were obtained in supine position. Resting perfusion study was performed on 07/01/2023. Patient was administered 25 mCi of sestamibi intravenously at rest. Images were then obtained in supine position. Images obtained with and without CT attenuation. Total DLP 70 mGy-cm. Images were processed with the software and compared side to side in short axis, horizontal long axis and vertical long axis views. Findings: The stress perfusion study showed non attenuated images show normal uptake of all segments of LV myocardium. Attenuation corrected images show some thinning of the mid anterior wall of the LV myocardium. The gated study shows normal LV systolic function with calculated LVEF of greater than 70%. LV cavity is normal in size. The gated study shows normal systolic wall thickening and contraction of segments. Resting study shows non attenuated images show normal uptake of radiotracer in all segments of LV myocardium. Gating at rest reveals normal systolic wall motion with ejection fraction at 62%. The findings are consistent with likely normal myocardial perfusion. NM/NM cardiolite stress test Impression: 1. Myocardial perfusion imaging study shows likely normal myocardial perfusion 2. Gated LVEF is 62% 3. Transient ischemic dilatation not present EKG is nondiagnostic for ischemia
--- NOTE | 2023-06-29 07:46 | CA_ITS ---
Acquisition Time: 2023-06-29 08:00:31 Total Exercise Time: 00:02:00 Test Indications: Chest Pain Medications: SEE H Protocol: LEXISCAN Max HR: 134 BPM 81% of Pred: 165 BPM Max BP: 110/060 mmHG Max Work Load: 1.0 METS Pharmacoligcal stress test with Lexiscan injection while sitting and kicking her legs, without anginal symptoms, without arrhythmias, with T wave inversion lead 2, 3, aVF, V3-V4. Aminophylline 754mg IVP given to reverse Lexiscan. Nuclear images pending. Test reviewed with Dr. Uribe Referred By: Francine Reyes Overread By: Celina Escalera
== END ==
LOC: HO.CARD 07:43
PROVIDERS: PCP Internal Medicine; Visit Provider Nurse Practitioner Family
DX: I21.4 Non-ST elevation (NSTEMI) myocardial infarction (principal); F19.90 Other psychoactive substance use, unspecified, uncomplicated
CPT/HCPCS: 78452; 93017; A9500; J0280; J2785

== ENCOUNTER → 2023-06-29 07:46 | Outpatient (BNV) | payer OTHER, SELFPAY | PROVIDERS: PCP Internal Medicine; Visit Provider Nurse Practitioner | DX: R07.9 Chest pain, unspecified (principal) | CPT/HCPCS: 78452; 93016; 93018 ==

== ENCOUNTER 2023-10-10 09:04 | Outpatient (AMB) | payer OTHER, SELFPAY ==
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
[2023-10-10 09:10] VITALS: BP 112/70; PULSE 92; O2SAT 98; BMI 17.3
== END 2023-10-10 10:41 | disposition home or self-care (01) ==
PROVIDERS: PCP Internal Medicine; Visit Provider Internal Medicine
DX: F41.1 Generalized anxiety disorder (principal); R21 Rash and other nonspecific skin eruption
CPT/HCPCS: 99214; G2211

== ENCOUNTER 2023-11-03 16:02 | Emergency (ER) | payer OTHER, SELFPAY ==
[2023-11-03 16:12] VITALS: BP 100/64; BP 104/57; PULSE 87; PULSE 92; RESP 18; TEMP 37.2; O2SAT 94; BMI 16.4
--- NOTE | 2023-11-03 16:45 | ED.GENADULT ---
HPI - General Adult General Chief complaint: Extremity Injury, Lower Stated complaint: l ankle pain Time Seen by Provider: 11/03/23 16:17 Source: patient, RN notes reviewed and old records reviewed Mode of arrival: EMS Limitations: no limitations History of Present Illness ED Provider: Marquise HPI narrative: 57-year-old female presents for evaluation of left ankle pain. Patient that she was walking on the stairs when she ?felt a pop. She reports that the ankle twisted and she fell down. She reports falling so fast that she is not sure exactly what happened She does not believe that she hit her head or loss conscious She admits to drinking alcohol afterwards to deal with her pain so she can not bear weight on the left ankle She has no other complaints or concerns at this time Related Data Home Medications ?Medication ?Instructions ?Recorded ?Confirmed hydroxyzine pamoate 50 mg capsule 50 mg PO TID 03/31/20 05/12/23 oxcarbazepine 300 mg tablet 300 mg PO BID 03/31/20 05/12/23 quetiapine 400 mg tablet 400 mg PO BEDTIME 03/31/20 05/12/23 quetiapine 50 mg tablet (Seroquel) 50 mg PO BID 03/31/20 05/12/23 sertraline 100 mg tablet (Zoloft) 200 mg PO DAILY 03/31/20 05/12/23 lorazepam 1 mg tablet 1 mg PO TID 09/02/20 05/12/23 Previous Rx's ?Medication ?Instructions ?Recorded commode #1 ea 04/15/21 disposable gloves #100 ea 10/22/22 Shower grab bar #1 ea 05/09/23 cane #1 ea 05/09/23 diaper,brief,adult,disposable #96 ea 05/09/23 (Prevail PM Brief Medium) nut tx, lact-reduced, iron 0.09 50 ea PO TID #5,688 mL 06/22/23 gram-2.25 kcal/mL oral liquid (Boost [facility]) levothyroxine 75 mcg tablet 75 mcg PO DAILY #90 tabs 08/11/23 aspirin 81 mg chewable tablet 81 mg PO DAILY #30 tabs 09/12/23 atorvastatin 80 mg tablet 80 mg PO DAILY #30 tabs 09/12/23 gabapentin 100 mg capsule 100 mg PO BID #180 caps 10/07/23 efinaconazole 10 % topical 1 appl topical BEDTIME 2 months #4 10/12/23 solution with applicator mL hydrocortisone 2.5 % topical cream 1 appl topical BID PRN skin 10/12/23 irritation #20 grams mupirocin 2 % topical ointment 1 appl topical BID #15 grams 10/12/23 omeprazole 20 mg capsule,delayed 20 mg PO DAILY #28 caps 11/02/23 release acetaminophen 500 mg tablet 1,000 mg (2 x 500 mg) PO Q6H PRN 11/08/23 (Tylenol Extra Strength) pain #30 tabs ibuprofen 600 mg tablet 600 mg PO Q6H PRN pain #30 tabs 11/08/23 Allergies Allergy/AdvReac Type Severity Reaction Status Date / Time hair dye Allergy Unknown Unknown Verified 11/08/23 14:25 Review of Systems Constitutional: Constitutional: Denies headache(s) ENT: Denies headache(s) Musculoskeletal: Musculoskeletal: Reports arthralgias, Reports joint swelling and Reports limited range of motion Integumentary/Breasts: Skin/Breast: Denies wounds Neurologic: Denies headache(s) [facility] Past Medical History Medical History Generalized anxiety disorder Bipolar illness Posttraumatic stress disorder Acquired hypothyroidism GERD (gastroesophageal reflux disease) Surgical History History of foot surgery History of eye surgery Family History Family History Father HIV (human immunodeficiency virus infection) CKD (chronic kidney disease) Substance use disorder Mother Hepatitis C Bilateral cataracts Maternal Grandmother Diabetes CVD (cardiovascular disease) Brother No problems noted. Brother No problems noted. Brother No problems noted. Sister No problems noted. 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 Housing: Condominium Do you presently have visiting nurse or other home services: Yes (PETROLEUM INSPECTOR lives upstairs, hours increased to include night hours. 24 hours/week) Alcohol intake: current Alcohol intake frequency: a few times a week Comment: 1:1 sitter SI Patient Tobacco Use Status: Former Tobacco user Tobacco use type: Cigarette e-Cigarette/Vaping Use: Never Used Second Hand Smoke Exposure: Yes (outside only) Substance Use Type: Marijuana service: No Current occupational status: disabled Cognitive needs: Yes (walker) Hearing needs: No Vision needs: No Physical Exam ED Vital Signs: Vital Signs - 24 hr 11/03/23 16:12 11/03/23 16:54 Temperature 99 F 0 F L Pulse Rate 87 0 L Respiratory Rate 18 0 L Blood Pressure 104/57 L 00/00 L Pulse Oximetry 94 0 L Oxygen Delivery Method Room Air BMI result Body Mass Index 16.4 Const General: healthy appearing, comfortable, no acute distress, alert and awake Nutritional Appearance: well nourished Orientation/consciousness: patient oriented x3 HENMT Head: Yes normocephalic and Yes atraumatic Eyes Eyelids: Yes eyelids normal Conjunctivae: conjunctivae normal Sclerae: sclerae normal Corneas: corneas normal Pupils: Equal, round and reactive pupils present EOM: EOMs intact bilaterally Neck Neck: Yes full ROM Resp Effort & Inspection: normal respiratory effort, able to speak in complete sentences and not labored Skin General skin exam: elasticity normal Neuro General: patient oriented x3 Cranial nerves: Yes Equal, round and reactive pupils present and Yes Bilaterally intact EOM present Cognition (Neuro): normal cognition Extrem Other: And has moderate edema to the left lateral ankle with overlying ecchymosis left calf tenderness. Achilles tendon is palpable. Distal sensation and capillary refill intact. There is mild left knee tenderness with the patient has good range of motion with flexion-extension of the left knee. There was no left hip tenderness Course Reevaluation(s) Reevaluation #1: Shortly after my evaluation, nursing staff was conversing with the patient and she became irate that she was placed in a hallway bed and was not given a ?private room. ? Patient states that she has bipolar disorder and can not be in the hallway with ?everyone staring at me. ? Patient's PETROLEUM INSPECTOR was bedside, the patient demanded to leave the hospital against medical advice. I strongly recommended that the patient stay to receive x-ray imaging as she may require to be nonweightbearing on the left leg. The patient reports that she will go to another hospital if she has to but she is adamant that she is leaving this hospital against medical advice. Did admit to some alcohol consumption prior to arrival, she remains awake, alert and oriented and is able to leave against medical advice Medical Decision Making Medical Decision Making MDM Narrative: Patient is seen and evaluated, plan for x-ray of the left ankle as well as the left knee as she is also reporting knee pain. Differential Diagnosis Differential Diagnoses: The differential diagnosis associated with the presentation includes Knee sprain Ankle sprain Ankle fracture Ankle dislocation Contusion Discharge Plan Discharge Clinical Impression: Acute left ankle pain Patient Disposition: Left Against Medical Advice Additional Instructions: You are leaving against medical advice There is a good chance your ankle could be broken and I think you should have an x-ray Your choosing to leave prior to having your x-ray completed I recommend that you do not walk on an injured ankle for you as worsening injury Prescriptions: No Action (DME) commode Kit See Rx Instructions .Route Qty: 1 0RF Rx Instructions: As directed (DME) disposable gloves Misc See Rx Instructions .Route Qty: 100 5RF Rx Instructions: As directed (DME) Prevail PM Brief Medium Misc See Rx Instructions .Route Qty: 96 5RF Rx Instructions: As directed size small (DME) cane See Rx Instructions .Route .MEDSUPPLY Qty: 1 0RF Rx Instructions: As directed (DME) Shower grab bar See Rx Instructions .Route .MEDSUPPLY Qty: 1 0RF Rx Instructions: As directed Boost [facility]HC 0.09-2.25 gram-kcal/mL liquid 50 ea PO TID Qty: 5688 0RF levothyroxine 75 mcg tablet 75 mcg PO DAILY Qty: 90 1RF atorvastatin 80 mg tablet 80 mg PO DAILY Qty: 30 2RF aspirin 81 mg tablet,chewable 81 mg PO DAILY Qty: 30 2RF gabapentin 100 mg capsule 100 mg PO BID Qty: 180 1RF efinaconazole 10 % solution with applicator 1 appl topical BEDTIME 60 Days Qty: 4 0RF Rx Instructions: Apply to toenail mupirocin 2 % ointment 1 appl topical BID Qty: 15 0RF omeprazole 20 mg capsule,delayed release(DR/EC) 20 mg PO DAILY Qty: 28 0RF ibuprofen 600 mg tablet 600 mg PO Q6H PRN (Reason: pain) Qty: 30 0RF acetaminophen [Tylenol Extra Strength] 500 mg tablet 1,000 mg PO Q6H PRN (Reason: pain) Qty: 30 0RF quetiapine 400 mg tablet 400 mg PO BEDTIME quetiapine [Seroquel] 50 mg tablet 50 mg PO BID oxcarbazepine 300 mg tablet 300 mg PO BID hydroxyzine pamoate 50 mg capsule 50 mg PO TID sertraline [Zoloft] 100 mg tablet 200 mg PO DAILY lorazepam 1 mg tablet 1 mg PO TID hydrocortisone 2.5 % cream 1 appl topical BID PRN (Reason: skin irritation) Qty: 20 0RF Stand Alone Forms: Against Medical Advice Interventions: ED Discharge Assessment Last Done: 11/03/23 16:54 Discharge Date/Time: 11/03/23 16:59 Print Language: Libyan
[2023-11-03 16:54] VITALS: BP 00/00; PULSE 0; RESP 0; TEMP -17.7; TEMP 0; O2SAT 0
== END 2023-11-03 16:59 | disposition left against medical advice (07) ==
PROVIDERS: Emergency Provider Emergency Medicine
DX: M25.572 Pain in left ankle and joints of left foot (principal)
CPT/HCPCS: 99283; 99284

== ENCOUNTER 2023-11-08 14:10 | Emergency (ER) | payer OTHER, SELFPAY ==
--- NOTE | ~2023-11-08 | XR_ITS ---
EXAMINATION: XR RIBS, LEFT CLINICAL INFORMATION: Left-sided rib pain COMPARISON: CT chest October 06, 2022 TECHNIQUE: Frontal view of chest 4 views of the left ribs were obtained. FINDINGS: Lungs are clear. No consolidation, pneumothorax, or pleural effusion. The cardiomediastinal silhouette and pulmonary vasculature are normal. Osseous structures are unremarkable. Ribs are intact. No fractures are identified. XR/XR ribs LT min 3V w CXR1V IMPRESSION: Unremarkable examination. Electronically signed by: Johnny Browning MD 11/08/2023 04:49 PM EDT
--- NOTE | ~2023-11-08 | XR_ITS ---
EXAMINATION: XR ANKLE, LEFT. XR FOOT, LEFT. CLINICAL INFORMATION: Fall, pain COMPARISON: None. TECHNIQUE: 3 views of the left ankle and 3 views of the left foot FINDINGS: There is a nondisplaced transverse fracture of the distal fibula, distal to the syndesmosis. No additional fracture is evident. The ankle mortise is preserved. XR/XR ankle LT min 3V IMPRESSION: Nondisplaced transverse fracture of the distal fibula. Electronically signed by: Rick Blank MD 11/08/2023 03:43 PM EDT
--- NOTE | ~2023-11-08 | XR_ITS ---
EXAMINATION: XR ANKLE, LEFT. XR FOOT, LEFT. CLINICAL INFORMATION: Fall, pain COMPARISON: None. TECHNIQUE: 3 views of the left ankle and 3 views of the left foot FINDINGS: There is a nondisplaced transverse fracture of the distal fibula, distal to the syndesmosis. No additional fracture is evident. The ankle mortise is preserved. XR/XR foot LT min 3V IMPRESSION: Nondisplaced transverse fracture of the distal fibula. Electronically signed by: Rick Blank MD 11/08/2023 03:43 PM EDT
[2023-11-08 14:18] VITALS: BP 114/78; PULSE 95; O2SAT 97
--- NOTE | 2023-11-08 14:22 | ED_ITS ---
HPI - General Adult General Chief complaint: Extremity Injury, Lower Stated complaint: FALL 5D AGO,L FOOT PAIN/BRUISE PER EMS Time Seen by Provider: 11/08/23 14:38 Source: patient and RN notes reviewed Mode of arrival: ambulatory Limitations: no limitations History of Present Illness ED Provider: Poly Law PA-C HPI narrative: This is a 57-year-old female who presents emergency department complaints of left pain status post mechanical fall which occurred 5 days ago. Patient reports that she was walking down the steps and inverted her ankle and felt a popping sensation. She states that she has had difficulty with weight- bearing secondary to pain. She was seen in the emergency room on November 02 however left against medical advice prior to having a x-ray performed as she could no longer wait. She also reports that her walker fell directly on her left rehab today. She denies any chest pain or shortness of breath. She has been taking ibuprofen and Tylenol for her symptoms which has provided her with no relief. No other complaints or concerns at this time. MD complaint: Left ankle pain, left rib pain Exacerbating factors: movement Associated symptoms: denies other symptoms Treatments prior to arrival: none Related Data Home Medications ?Medication ?Instructions ?Recorded ?Confirmed hydroxyzine pamoate 50 mg capsule 50 mg PO TID 03/31/20 05/12/23 oxcarbazepine 300 mg tablet 300 mg PO BID 03/31/20 05/12/23 quetiapine 400 mg tablet 400 mg PO BEDTIME 03/31/20 05/12/23 quetiapine 50 mg tablet (Seroquel) 50 mg PO BID 03/31/20 05/12/23 sertraline 100 mg tablet (Zoloft) 200 mg PO DAILY 03/31/20 05/12/23 lorazepam 1 mg tablet 1 mg PO TID 09/02/20 05/12/23 Previous Rx's ?Medication ?Instructions ?Recorded commode #1 ea 04/15/21 disposable gloves #100 ea 10/22/22 Shower grab bar #1 ea 05/09/23 cane #1 ea 05/09/23 diaper,brief,adult,disposable #96 ea 05/09/23 (Prevail PM Brief Medium) nut tx, lact-reduced, iron 0.09 50 ea PO TID #5,688 mL 06/22/23 gram-2.25 kcal/mL oral liquid (Boost [facility]) levothyroxine 75 mcg tablet 75 mcg PO DAILY #90 tabs 08/11/23 aspirin 81 mg chewable tablet 81 mg PO DAILY #30 tabs 09/12/23 atorvastatin 80 mg tablet 80 mg PO DAILY #30 tabs 09/12/23 gabapentin 100 mg capsule 100 mg PO BID #180 caps 10/07/23 efinaconazole 10 % topical 1 appl topical BEDTIME 2 months #4 10/12/23 solution with applicator mL hydrocortisone 2.5 % topical cream 1 appl topical BID PRN skin 10/12/23 irritation #20 grams mupirocin 2 % topical ointment 1 appl topical BID #15 grams 10/12/23 omeprazole 20 mg capsule,delayed 20 mg PO DAILY #28 caps 11/02/23 release acetaminophen 500 mg tablet 1,000 mg (2 x 500 mg) PO Q6H PRN 11/08/23 (Tylenol Extra Strength) pain #30 tabs ibuprofen 600 mg tablet 600 mg PO Q6H PRN pain #30 tabs 11/08/23 Allergies Allergy/AdvReac Type Severity Reaction Status Date / Time hair dye Allergy Unknown Unknown Verified 11/08/23 14:25 Review of Systems Review of Systems: Yes all other systems are reviewed and are negative Constitutional: Constitutional: Reports as per [facility] Past Medical History Medical History Generalized anxiety disorder Bipolar illness Posttraumatic stress disorder Acquired hypothyroidism GERD (gastroesophageal reflux disease) Surgical History History of foot surgery History of eye surgery Family History Family History Father HIV (human immunodeficiency virus infection) CKD (chronic kidney disease) Substance use disorder Mother Hepatitis C Bilateral cataracts Maternal Grandmother Diabetes CVD (cardiovascular disease) Brother No problems noted. Brother No problems noted. Brother No problems noted. Sister No problems noted. Other Mental health disorder Social History Social History Household Members Other:: PEANUT ROASTER lives upstairs from her. Housing: Condominium Do you presently have visiting nurse or other home services: Yes (PEANUT ROASTER lives upstairs, hours increased to include night hours. 24 hours/week) Alcohol intake: current Alcohol intake frequency: a few times a week Comment: 1:1 janes SI Patient Tobacco Use Status: Former Tobacco user Tobacco use type: Cigarette e-Cigarette/Vaping Use: Never Used Second Hand Smoke Exposure: Yes (outside only) Substance Use Type: Marijuana Advance Directives: No Advance Directives Information Provided: No service: No Current occupational status: disabled Cognitive needs: Yes (walker) Hearing needs: No Vision needs: No Physical Exam ED Vital Signs: Vital Signs - 24 hr 11/08/23 14:24 11/08/23 16:59 11/08/23 18:24 Temperature 98 F 97.8 F 97.8 F Pulse Rate 95 74 74 Respiratory Rate 19 16 16 Blood Pressure 117/44 L 123/64 123/64 Pulse Oximetry 97 Oxygen Delivery Method Room Air Room Air Room Air BMI result Body Mass Index 18.8 Const General: cooperative, comfortable and no acute distress Orientation/consciousness: patient oriented x3 Limitations: no limitations HENMT Head: Yes normal to inspection, Yes normocephalic and Yes atraumatic Ears: hearing grossly normal bilaterally General nose exam: Normal external nose present Face and sinus: Yes normal facial exam Mouth: Normal oral and palatal mucosa present, oropharynx normal and moist mucous membranes Throat: Yes posterior oropharynx normal Eyes General: appearance normal, both eyes and all related structures Eyelids: Yes eyelids normal Conjunctivae: conjunctivae normal Sclerae: sclerae normal Pupils: Equal, round and reactive pupils present EOM: EOMs intact bilaterally Neck Neck: Yes normal visual inspection, Yes full ROM and Yes no lymphadenopathy Lymphatic: no lymphadenopathy noted Chest Chest palpation & inspection: normal inspection of the chest Resp Effort & Inspection: normal respiratory effort and able to speak in complete sentences Auscultation: clear to auscultation bilaterally, no crackles, no rales, no rhonchi and no wheezes Cardio Rate: regular rate Rhythm: regular rhythm Heart sounds: S1 normal heart sound present and S2 normal heart sound present GI Inspection: Yes normal to inspection Skin General skin exam: no rashes or lesions noted Trauma: no lacerations or abrasions Wounds: no wounds Neuro General: patient oriented x3 and moves all extremities Cranial nerves: Yes Equal, round and reactive pupils present Extrem Other: Left ankle with tenderness palpation along the lateral malleolus. She has extensive old, yellow colored ecchymosis seen throughout the entire forefoot. Fifth metatarsal is nontender. Decreased range of motion of the ankle secondary to pain. No medial malleoli tenderness. Strong DP pulse. No overlying erythema or open wounds. General: Yes normal to inspection Right upper extremity: normal to inspection Left upper extremity: normal to inspection Right lower extremity: normal to inspection Left lower extremity: normal to inspection Course Course Course Narrative: RME, this is a rapid medical exam performed by Donnie Camarillo please refer to primary provider for complete H&P- 57 year old female presents for evaluation of left ankle and foot pain. She fell 5 days ago and injured the lower extremity. She actually presenterd to this ED on 11/03/23 after the fall, but left AMA prior to imaging because I' have bipolar and can't be in the hallway. Plan for x- rays Medications Administered Discontinued Medications Generic Name Dose Route Start Last Admin Trade Name Freq PRN Reason Stop Dose Admin Ibuprofen 600 mg 11/08/23 16:50 11/08/23 17:11 Ibuprofen 600 Mg Tablet PO 11/08/23 16:51 600 mg ONCE ONE Administration Procedures Orthopedic Splinting/Casting Injury #1: Side: left Lower Extremity Injury Location: lower leg and ankle Lower Extremity Immobilizer: posterior splint and stirrup splint Other Orthopedic Equipment: crutches Medical Decision Making Medical Decision Making [facility] Narrative: This is a 57-year-old female who presents emergency department with complaints of left ankle and foot pain/left rib pain. Patient had a mechanical fall which occurred on November 02. She was seen in the emergency room, however left prior to the x-ray, she signed AMA. Her left ribs are also bothering her as her walker fell on top of her today. She denies any chest pain or shortness for breath. X-ray was obtained of her left ankle which revealed a fibular fracture. Discussed findings with patient. She was placed in a posterior/a stirrup splint. Given referral to Orthopedics. She was also given crutches. Given strict return precautions. She understands and agrees with plan. Patient stable for discharge Differential Diagnosis Differential Diagnoses: The differential diagnosis associated with the presentation includes Fracture, contusion, sprain, strain, dislocation, Katie's syndrome Admission/Observation Consideration of admission/observation: Escalation of care including admission/observation considered Independent Interpretation I performed an independent interpretation of an: Plain X-Ray Interpretation: X-rays revealing nondisplaced transverse fracture of the distal fibula. Radiology Impression Discussion of test interpretation with radiology: I have reviewed the radiologist's reading. Radiologist Impression: XR/XR ribs LT min 3V w CXR1V IMPRESSION: Unremarkable examination. Electronically signed by: Johnny Browning MD 11/08/2023 04:49 PM EDT RP Dictated By: Johnny Browning MD XR/XR foot LT min 3V IMPRESSION: Nondisplaced transverse fracture of the distal fibula. Electronically signed by: Rick Blank MD 11/08/2023 03:43 PM EDT RP Dictated By: Rick Blank MD Discharge Plan Discharge Clinical Impression: Fracture of distal end of fibula Patient Disposition: Home, Self-Care Instructions: Ankle Fracture (ED), Leg Fracture (ED), Crutch Instructions (ED), Splint Care (ED) Additional Instructions: You were seen today due to left ankle pain. You have a fracture in your left fibula. Please keep splint on until you were seen by the orthopedic team. Use crutches as directed, do not apply any weight to your ankle until you are seen by the orthopedic team and cleared by them. Do not get your splint wet. Rest, and keep your leg elevated to reduce the inflammation and swelling in your ankle. Alternate between ibuprofen and Tylenol as needed for pain. If any new or worsening symptoms occur including but not limited to worsening color change in your toes, severe pain, fevers, chills, please report back to the emergency room. Prescriptions: New ibuprofen 600 mg tablet 600 mg PO Q6H PRN (Reason: pain) Qty: 30 0RF acetaminophen [Tylenol Extra Strength] 500 mg tablet 1,000 mg PO Q6H PRN (Reason: pain) Qty: 30 0RF No Action (DME) commode Kit See Rx Instructions .Route Qty: 1 0RF Rx Instructions: As directed (DME) disposable gloves Misc See Rx Instructions .Route Qty: 100 5RF Rx Instructions: As directed (DME) Prevail PM Brief Medium Misc See Rx Instructions .Route Qty: 96 5RF Rx Instructions: As directed size small (DME) cane See Rx Instructions .Route .MEDSUPPLY Qty: 1 0RF Rx Instructions: As directed (DME) Shower grab bar See Rx Instructions .Route .MEDSUPPLY Qty: 1 0RF Rx Instructions: As directed Boost VHC 0.09-2.25 gram-kcal/mL liquid 50 ea PO TID Qty: 5688 0RF levothyroxine 75 mcg tablet 75 mcg PO DAILY Qty: 90 1RF atorvastatin 80 mg tablet 80 mg PO DAILY Qty: 30 2RF aspirin 81 mg tablet,chewable 81 mg PO DAILY Qty: 30 2RF gabapentin 100 mg capsule 100 mg PO BID Qty: 180 1RF efinaconazole 10 % solution with applicator 1 appl topical BEDTIME 60 Days Qty: 4 0RF Rx Instructions: Apply to toenail mupirocin 2 % ointment 1 appl topical BID Qty: 15 0RF omeprazole 20 mg capsule,delayed release(DR/EC) 20 mg PO DAILY Qty: 28 0RF quetiapine 400 mg tablet 400 mg PO BEDTIME quetiapine [Seroquel] 50 mg tablet 50 mg PO BID oxcarbazepine 300 mg tablet 300 mg PO BID hydroxyzine pamoate 50 mg capsule 50 mg PO TID sertraline [Zoloft] 100 mg tablet 200 mg PO DAILY lorazepam 1 mg tablet 1 mg PO TID hydrocortisone 2.5 % cream 1 appl topical BID PRN (Reason: skin irritation) Qty: 20 0RF [place] [facility] [place] Group[place] Interventions: ED Discharge Assessment Last Done: 11/08/23 18:24 Discharge Date/Time: 11/08/23 18:24 Print Language: German
[2023-11-08 14:24] VITALS: BP 117/44; PULSE 95; RESP 19; TEMP 36.6; O2SAT 97; BMI 18.8
[2023-11-08 16:59] VITALS: BP 123/64; PULSE 74; RESP 16; TEMP 36.6
[2023-11-08] MEDS: Ibuprofen 600 MG TABLET PO (17:11)
[2023-11-08 18:24] VITALS: BP 123/64; PULSE 74; RESP 16; TEMP 36.6
== END 2023-11-08 18:24 | disposition home or self-care (01) ==
PROVIDERS: Emergency Provider Emergency Medicine; PCP Internal Medicine
DX: S82.832A Other fracture of upper and lower end of left fibula, initial encounter for closed fracture (principal); R07.89 Other chest pain; M79.672 Pain in left foot; W19.XXXA Unspecified fall, initial encounter; Y93.89 Activity, other specified; Y92.89 Other specified places as the place of occurrence of the external cause; Y99.8 Other external cause status; Z79.899 Other long term (current) drug therapy; Z87.891 Personal history of nicotine dependence
CPT/HCPCS: 29515; 71101; 73610; 73630; 99283; 99284

== ENCOUNTER 2023-11-25 10:31 | Outpatient (AMB) | payer OTHER, SELFPAY ==
--- NOTE | 2023-11-25 10:45 | A.OFFVIS_ITS ---
Vital Signs 11/25/23 11:07 Height 4 ft 10 in Weight 90 lb BMI 18.8 Intake Visit Reasons: FC- fracture of left fibula/ED Follow up Intake Note: Iris a 57 year old female who presents today for an ER follow up of left fibula fracture, DOI 11/03/23. Patient reports that she felt a click when she was walking down the stairs causing her to fall. She was unable to bear weight on her left foot. She presented [place] [facility] [place] however she had to leave due to her anxiety. She returned on 11/08/23, xrays were taken and a splint was applied. Her pain is located at the lateral aspect of ankle. Denies numbness and tingling. Hx of right foot reconstructive surgery ~2007. She finds very little relief with ibuprofen. Due to her liver she is unable to take Tylenol. Allergies hair dye Allergy (Unknown, Verified 11/25/23 10:56) Unknown Medication List - Last Reconciled 11/25/23 by Tessa Neves PA-C acetaminophen (Tylenol Extra Strength) 1,000 mg (2 x 500 mg) PO Q6H PRN aspirin 81 mg PO DAILY atorvastatin 80 mg PO DAILY [cane As directed] commode As directed diaper,brief,adult,disposable (Prevail PM Brief Medium) As directed size small disposable gloves As directed efinaconazole 10% 1 appl topical BEDTIME 2 months gabapentin 100 mg PO BID hydrocortisone 2.5% 1 appl topical BID PRN hydroxyzine pamoate 50 mg PO TID ibuprofen 600 mg PO Q6H PRN levothyroxine 75 mcg PO DAILY lorazepam 1 mg PO TID mupirocin 2% 1 appl topical BID nut tx, lact-reduced, iron (Boost VHC) 50 ea PO TID omeprazole 20 mg PO DAILY oxcarbazepine 300 mg PO BID quetiapine (Seroquel) 50 mg PO BID quetiapine 400 mg PO BEDTIME sertraline (Zoloft) 200 mg PO DAILY [Shower grab bar As directed] HPI HPI FC- fracture of left fibula/ED Follow up: Details: 57-year-old female who presents to the office today for an ED follow-up of left fibula injury, 11/03/23. She reports she was going up the stairs when she twisted her ankle and sustained a fall with a pop. She was unable to weight bear on her left foot and was seen at ER the same day however she had to leave due to her anxiety. She returned to ER on 11/08/23 where x-rays were performed and she was placed in a splint. She currently states she has limited ROM and chronic pain at the lateral aspect of her ankle. She denies any numbness or tingling. She finds minimal relief with ibuprofen. She cannot take Tylenol due to liver issues. She has a history of right foot reconstruction in 2007. [facility] Medical History Generalized anxiety disorder Bipolar illness Posttraumatic stress disorder Acquired hypothyroidism GERD (gastroesophageal reflux disease) Surgical History History of foot surgery History of eye surgery Family History Father HIV (human immunodeficiency virus infection) CKD (chronic kidney disease) Substance use disorder Mother Hepatitis C Bilateral cataracts Maternal Grandmother Diabetes CVD (cardiovascular disease) Brother No problems noted. Brother No problems noted. Brother No problems noted. Sister No problems noted. 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 [facility] Do you presently have visiting nurse or other home services: Yes (HOTEL GENERAL MANAGER lives upstairs, hours increased to include night hours. 24 hours/week) Alcohol intake: current Alcohol intake frequency: a few times a week Comment: 1:1 sitter SI Patient Tobacco Use Status: Former Tobacco user Tobacco use type: Cigarette e-Cigarette/Vaping Use: Never Used Second Hand Smoke Exposure: Yes (outside only) Substance Use Type: Marijuana service: No Current occupational status: disabled Cognitive needs: Yes (walker) Hearing needs: No Vision needs: No Review of Systems Const All systems reviewed & are unremarkable except as noted in HPI and below Physical Exam Vital Signs: BMI result Body Mass Index 18.8 Const General: cooperative, healthy appearing, comfortable, no acute distress, well developed and alert Orientation/consciousness: patient oriented x3 HEENT Head: Yes normal to inspection, Yes normocephalic and Yes atraumatic Eyes General: appearance normal, both eyes and all related structures Resp Effort & Inspection: normal respiratory effort and able to speak in complete sentences Cardio Rate: regular rate Peripheral pulses: Peripheral pulses 2+ throughout GI Palpation (GI): Soft to palpation Skin Lesions: no lesions Rashes: no rashes Neuro General: patient oriented x3 Extrem Other: Left ankle: Normal to inspection. No swelling or ecchymosis. No open wound. She has very mild tenderness at the lateral malleolus. NVI. Office Procedures Fracture Care Fracture Billing Code: Fracture Billing Code Results Reviewed Results Reviewed: XR ankle LT min 3V IMPRESSION: Nondisplaced transverse fracture of the distal fibula. Assessment & Plan Assessment & Plan (1) Closed fracture of left distal fibula: Code(s): S82.832A - Other fracture of upper and lower end of left fibula, initial encounter for closed fracture Category: Medical Qualifiers: Encounter type: initial encounter Fracture morphology: other fracture Qualified Code(s): S82.832A - Other fracture of upper and lower end of left fibula, initial encounter for closed fracture Plan She was fit for a tall boot weight bearing as tolerated. She can remove the boot for resting, hygiene and sleeping. I would expect she wears this for 3-4 weeks and she will see me back at that time with new x-rays. Patient Instructions: Scribed for Tessa Neves PA-C, by Reid Guerra medical staff assistant, on 11/25/2023 at 10:45 AM EST.? I, Tessa Neves PA-C, have personally reviewed and agree with the information entered by the scribe. Coding Level of Care Code New Pt Level 3 (58630) Complex EM visit Add On G2211 Diagnoses Other closed fracture of distal end of left fibula, initial encounter S82.832A Encounter type: initial encounter Fracture morphology: other fracture CPT Codes Fracture Care - Fracture Billing Code: Fracture Billing Code ([id number])
[2023-11-25 11:07] VITALS: BMI 18.8
== END 2023-11-25 11:32 | disposition home or self-care (01) ==
PROVIDERS: PCP Internal Medicine; Visit Provider Physician Assistant
DX: S82.832A Other fracture of upper and lower end of left fibula, initial encounter for closed fracture (principal)
CPT/HCPCS: 99203; G2211

== ENCOUNTER → 2023-11-25 10:31 | Outpatient (BNVA) | payer OTHER, SELFPAY | PROVIDERS: PCP Internal Medicine; Visit Provider Physician Assistant | DX: S82.832A Other fracture of upper and lower end of left fibula, initial encounter for closed fracture (principal) | CPT/HCPCS: 99202 ==

== ENCOUNTER 2023-12-05 16:48 | Emergency (ER) | payer OTHER, SELFPAY ==
--- NOTE | 2023-12-05 16:50 | PC.NURSE ---
provider called to ems stretcher for evaluation for a possible external triage, Kiki RAMÍREZ states that pt is safe to start in triage
[2023-12-05 17:44] VITALS: BP 107/73; O2SAT 99
== END 2023-12-05 19:32 | disposition left against medical advice (07) ==
LOC: HO.ED 19:33
PROVIDERS: Emergency Provider Emergency Medicine
DX: M79.605 Pain in left leg (principal); M79.604 Pain in right leg

== ENCOUNTER 2023-12-06 16:32 | Emergency (ER) | payer OTHER, SELFPAY ==
--- NOTE | ~2023-12-06 | XR_ITS ---
EXAMINATION: XR FOOT, RIGHT CLINICAL INFORMATION: Pain after fall COMPARISON: Right foot 06/14/2018 TECHNIQUE: AP, lateral, and oblique views of the right foot. FINDINGS: Again seen is chronic orthopedic hardware with medial malleolar screws, partially visualized plate and screw device distal fibula and calcaneal plate and screws. Generalized osteopenia is present. No acute fractures are seen. XR/XR foot RT min 3V IMPRESSION: No acute fractures are seen. Chronic changes as described above. Electronically signed by: Tong Bolton MD 12/06/2023 08:03 PM EDT
[2023-12-06 16:51] VITALS: BP 102/56; PULSE 89; O2SAT 95
[2023-12-06 16:52] VITALS: BP 95/57; PULSE 90; RESP 18; TEMP 36.4; O2SAT 94; BMI 37.8
--- NOTE | 2023-12-06 16:53 | ED_ITS ---
HPI - Extremity Injury (Lower) General Chief Complaint: Extremity Injury, Lower Stated Complaint: R ankle pain Time Seen by Provider: 12/06/23 16:51 Source: patient Mode of arrival: ambulatory Limitations: no limitations History of Present Illness ED Provider: saray MARION Narrative: Patient is 57 years old apparently fell from the fridge a week ago landed on her right for complaining of pain in the lateral aspect of the right foot patient ambulatory as such had ORIF of the same ankle several years ago Related Data Home Medications ?Medication ?Instructions ?Recorded ?Confirmed hydroxyzine pamoate 50 mg capsule 50 mg PO TID 03/31/20 11/25/23 oxcarbazepine 300 mg tablet 300 mg PO BID 03/31/20 11/25/23 quetiapine 400 mg tablet 400 mg PO BEDTIME 03/31/20 11/25/23 quetiapine 50 mg tablet (Seroquel) 50 mg PO BID 03/31/20 11/25/23 sertraline 100 mg tablet (Zoloft) 200 mg PO DAILY 03/31/20 11/25/23 lorazepam 1 mg tablet 1 mg PO TID 09/02/20 11/25/23 Previous Rx's ?Medication ?Instructions ?Recorded commode #1 ea 04/15/21 disposable gloves #100 ea 10/22/22 Shower grab bar #1 ea 05/09/23 cane #1 ea 05/09/23 diaper,brief,adult,disposable #96 ea 05/09/23 (Prevail PM Brief Medium) nut tx, lact-reduced, iron 0.09 50 ea PO TID #5,688 mL 06/22/23 gram-2.25 kcal/mL oral liquid (Boost [facility]) levothyroxine 75 mcg tablet 75 mcg PO DAILY #90 tabs 08/11/23 gabapentin 100 mg capsule 100 mg PO BID #180 caps 10/07/23 efinaconazole 10 % topical 1 appl topical BEDTIME 2 months #4 10/12/23 solution with applicator mL hydrocortisone 2.5 % topical cream 1 appl topical BID PRN skin 10/12/23 irritation #20 grams mupirocin 2 % topical ointment 1 appl topical BID #15 grams 10/12/23 acetaminophen 500 mg tablet 1,000 mg (2 x 500 mg) PO Q6H PRN 11/08/23 (Tylenol Extra Strength) pain #30 tabs ibuprofen 600 mg tablet 600 mg PO Q6H PRN pain #30 tabs 11/08/23 atorvastatin 80 mg tablet 80 mg PO DAILY #30 tabs 11/29/23 omeprazole 20 mg capsule,delayed 20 mg PO DAILY #28 caps 11/29/23 release aspirin 81 mg chewable tablet 81 mg PO DAILY #30 tabs 11/30/23 Allergies Allergy/AdvReac Type Severity Reaction Status Date / Time hair dye Allergy Unknown Unknown Verified 12/06/23 16:54 Review of Systems 2 Review of Systems: Yes all other systems are reviewed and are negative [facility] Past Medical History Medical History Generalized anxiety disorder Bipolar illness Posttraumatic stress disorder Acquired hypothyroidism GERD (gastroesophageal reflux disease) Surgical History History of foot surgery History of eye surgery Family History Family History Father HIV (human immunodeficiency virus infection) CKD (chronic kidney disease) Substance use disorder Mother Hepatitis C Bilateral cataracts Maternal Grandmother Diabetes CVD (cardiovascular disease) Brother No problems noted. Brother No problems noted. Brother No problems noted. Sister No problems noted. 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 Housing: Condominium Do you presently have visiting nurse or other home services: Yes (COMBUSTION ANALYST lives upstairs, hours increased to include night hours. 24 hours/week) Alcohol intake: current Alcohol intake frequency: a few times a week Comment: 1:1 sitter SI Patient Tobacco Use Status: Former Tobacco user Tobacco use type: Cigarette Smoked in Last 30 Days: No e-Cigarette/Vaping Use: Never Used Second Hand Smoke Exposure: Yes (outside only) Use of substances other than those prescribed or required for medical reasons: Yes Substance Use Type: Marijuana Substance Use Frequency: Daily Advance Directives: No Advance Directives Information Provided: No Do you have a plan to hurt others: No Plan Patient : No service: No Current occupational status: disabled Cognitive needs: Yes (walker) Hearing needs: No Vision needs: No Physical Exam 2 Vital Signs: Vital Signs: Last Vital Signs Temp 98.2 F 12/06/23 19: Pulse 84 12/06/23 19:01 Resp 16 12/06/23 19:01 BP 78/54 L 12/06/23 19:01 Pulse Ox 100 12/06/23 19:01 O2 Del Method Room Air 12/06/23 19:01 BMI result Body Mass Index 37.8 Extrem: Ankle/foot/toe images: 1. Soft tissue swelling with ecchymosis and tenderness neurovascular intact Medical Decision Making Medical Decision Making MDM Narrative: Patient is status post mechanical fall x-ray of the right ankle negative for acute fracture patient is wearing a ankle brace advised to continue wear that take Tylenol/Motrin for pain Discharge Plan Discharge Clinical Impression: Contusion of ankle, right Patient Disposition: Home, Self-Care Instructions: Ankle Sprain (ED) Additional Instructions: Apply ice pack Take Tylenol/ibuprofen for pain Wear the ankle brace as you using it for support Prescriptions: No Action (DME) commode Kit See Rx Instructions .Route Qty: 1 0RF Rx Instructions: As directed (DME) disposable gloves Misc See Rx Instructions .Route Qty: 100 5RF Rx Instructions: As directed (DME) Prevail PM Brief Medium Misc See Rx Instructions .Route Qty: 96 5RF Rx Instructions: As directed size small (DME) cane See Rx Instructions .Route .MEDSUPPLY Qty: 1 0RF Rx Instructions: As directed (DME) Shower grab bar See Rx Instructions .Route .MEDSUPPLY Qty: 1 0RF Rx Instructions: As directed Boost VHC 0.09-2.25 gram-kcal/mL liquid 50 ea PO TID Qty: 5688 0RF levothyroxine 75 mcg tablet 75 mcg PO DAILY Qty: 90 1RF gabapentin 100 mg capsule 100 mg PO BID Qty: 180 1RF efinaconazole 10 % solution with applicator 1 appl topical BEDTIME 60 Days Qty: 4 0RF Rx Instructions: Apply to toenail mupirocin 2 % ointment 1 appl topical BID Qty: 15 0RF omeprazole 20 mg capsule,delayed release(DR/EC) 20 mg PO DAILY Qty: 28 2RF atorvastatin 80 mg tablet 80 mg PO DAILY Qty: 30 2RF aspirin 81 mg tablet,chewable 81 mg PO DAILY Qty: 30 2RF ibuprofen 600 mg tablet 600 mg PO Q6H PRN (Reason: pain) Qty: 30 0RF acetaminophen [Tylenol Extra Strength] 500 mg tablet 1,000 mg PO Q6H PRN (Reason: pain) Qty: 30 0RF quetiapine 400 mg tablet 400 mg PO BEDTIME quetiapine [Seroquel] 50 mg tablet 50 mg PO BID oxcarbazepine 300 mg tablet 300 mg PO BID hydroxyzine pamoate 50 mg capsule 50 mg PO TID sertraline [Zoloft] 100 mg tablet 200 mg PO DAILY lorazepam 1 mg tablet 1 mg PO TID hydrocortisone 2.5 % cream 1 appl topical BID PRN (Reason: skin irritation) Qty: 20 0RF Interventions: ED Discharge Assessment Last Done: 12/06/23 19:01 Discharge Date/Time: 12/06/23 19:02 Print Language: Haitian
[2023-12-06 18:24] VITALS: BP 78/54; PULSE 84; RESP 16; O2SAT 100
--- NOTE | 2023-12-06 18:30 | PC.NURSE ---
Pt comes to ED today s/p fall while attempting to hang a picture. A&Ox3, VSS, afebrile. Pt has a boot on her L foot, however is here today for her R ankle; pain 12/14. Awaiting xray.
[2023-12-06 19:01] VITALS: BP 78/54; PULSE 84; RESP 16; TEMP 36.8; O2SAT 100
== END 2023-12-06 19:02 | disposition home or self-care (01) ==
PROVIDERS: Emergency Provider Internal Medicine; PCP Internal Medicine
DX: S90.01XA Contusion of right ankle, initial encounter (principal); W17.89XA Other fall from one level to another, initial encounter; Y93.89 Activity, other specified; Y92.030 Kitchen in apartment as the place of occurrence of the external cause; Y99.9 Unspecified external cause status
CPT/HCPCS: 73630; 99283; 99284

== ENCOUNTER 2023-12-23 09:37 | Outpatient (REF) | payer OTHER, SELFPAY | END 2023-12-23 09:38 | disposition home or self-care (01) | LOC: HO.HOSX 09:37 | PROVIDERS: Visit Provider Physician Assistant | DX: M25.572 Pain in left ankle and joints of left foot (principal); S82.832A Other fracture of upper and lower end of left fibula, initial encounter for closed fracture | CPT/HCPCS: 73610; 99212 ==

== ENCOUNTER 2023-12-23 10:27 | Outpatient (AMB) | payer OTHER, SELFPAY ==
--- NOTE | 2023-12-23 10:29 | A.OFFVIS_ITS ---
Intake Visit Reasons: OV- fracture of left fibula-F/U-w/xray Intake Note: Iris a 57 year old female who presents today for a follow up of left fibula fracture, DOI 11/03/23. Xrays updated. Patient reports she has pain everday. Pt states she has been wearing the breace everyday which she states does help with her stability. Allergies hair dye Allergy (Unknown, Verified 12/23/23 10:30) Unknown Medication List - Last Reconciled 12/23/23 by Tessa Neves PA-C aspirin 81 mg PO DAILY atorvastatin 80 mg PO DAILY [cane As directed] commode As directed diaper,brief,adult,disposable (Prevail PM Brief Medium) As directed size small disposable gloves As directed efinaconazole 10% 1 appl topical BEDTIME 2 months gabapentin 100 mg PO BID hydrocortisone 2.5% 1 appl topical BID PRN hydroxyzine pamoate 50 mg PO TID ibuprofen 600 mg PO Q6H PRN levothyroxine 75 mcg PO DAILY lorazepam 1 mg PO TID mupirocin 2% 1 appl topical BID nut tx, lact-reduced, iron (Boost [facility]) 50 ea PO TID omeprazole 20 mg PO DAILY oxcarbazepine 300 mg PO BID quetiapine (Seroquel) 50 mg PO BID quetiapine 400 mg PO BEDTIME sertraline (Zoloft) 200 mg PO DAILY [Shower grab bar As directed] HPI HPI OV- fracture of left fibula-F/U-w/xray: Details: 58-year-old female who returns to the office today for a follow-up of left fibula fracture, 11/03/23. She continues to have stiffness and pain in her leg every day that is aggravated in cold weathers. She has been wearing the brace daily to help with stability. She is doing well otherwise and has no concerns today. [facility] Medical History Generalized anxiety disorder Bipolar illness Posttraumatic stress disorder Acquired hypothyroidism GERD (gastroesophageal reflux disease) Surgical History History of foot surgery History of eye surgery Family History Father HIV (human immunodeficiency virus infection) CKD (chronic kidney disease) Substance use disorder Mother Hepatitis C Bilateral cataracts Maternal Grandmother Diabetes CVD (cardiovascular disease) Brother No problems noted. Brother No problems noted. Brother No problems noted. Sister No problems noted. 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 Housing: Condominium Do you presently have visiting nurse or other home services: Yes (PHYSICAL DESIGN ENGINEER lives upstairs, hours increased to include night hours. 24 hours/week) Alcohol intake: current Alcohol intake frequency: a few times a week Comment: 1:1 sitter SI Patient Tobacco Use Status: Former Tobacco user Tobacco use type: Cigarette e-Cigarette/Vaping Use: Never Used Second Hand Smoke Exposure: Yes (outside only) Substance Use Type: Marijuana service: No Current occupational status: disabled Cognitive needs: Yes (walker) Hearing needs: No Vision needs: No Review of Systems Const All systems reviewed & are unremarkable except as noted in HPI and below Physical Exam Const General: cooperative, healthy appearing, comfortable, no acute distress, well developed and alert Orientation/consciousness: patient oriented x3 HEENT Head: Yes normal to inspection, Yes normocephalic and Yes atraumatic Eyes General: appearance normal, both eyes and all related structures Resp Effort & Inspection: normal respiratory effort and able to speak in complete sentences Cardio Rate: regular rate Peripheral pulses: Peripheral pulses 2+ throughout GI Palpation (GI): Soft to palpation Skin Lesions: no lesions Rashes: no rashes Neuro General: patient oriented x3 Extrem Other: Left ankle: Normal to inspection. No swelling or ecchymosis. No open wound. She has very mild tenderness at the lateral malleolus. NVI. Results Reviewed Results Reviewed: XR ankle LT min 3V IMPRESSION: Nondisplaced transverse fracture of the distal fibula with interval Assessment & Plan Assessment & Plan (1) Closed fracture of left distal fibula: Code(s): S82.832A - Other fracture of upper and lower end of left fibula, initial encounter for closed fracture Category: Medical Qualifiers: Encounter type: initial encounter Fracture morphology: other fracture Qualified Code(s): S82.832A - Other fracture of upper and lower end of left fibula, initial encounter for closed fracture Plan She was transitioned to a lace up ankle brace. She can weight bear as tolerated. An order for physical therapy was placed to work on ROM, gait training and proprioceptive training. I did put in a request for home VNA for physical therapy as she has high anxiety, does not do well with group places and is unable to drive. She will increase activities as tolerated and see me back as needed. Orders: Orders XR ankle LT min 3V Today M25.572 - Pain in left ankle and joints of left foot PT Evaluation and Treatment Today S82.832A - Other fracture of upper and lower end of left fibula, initial encounter for closed fracture [facility]errals [facility] Referral S82.832A - Other fracture of upper and lower end of left fibula, initial encounter for closed fracture Patient Instructions: Scribed for Tessa Neves PA-C, by Reid Guerra biomedical engineering technologist, on 12/23/2023 at 10:45 AM EST.? I, Tessa Neves PA-C, have personally reviewed and agree with the information entered by the scribe. Coding Level of Care Code Global (06509) Diagnoses Other closed fracture of distal end of left fibula, initial encounter S82.832A Encounter type: initial encounter Fracture morphology: other fracture
== END 2023-12-23 11:02 | disposition home or self-care (01) ==
PROVIDERS: PCP Internal Medicine; Visit Provider Physician Assistant
DX: S82.832A Other fracture of upper and lower end of left fibula, initial encounter for closed fracture (principal)
CPT/HCPCS: 99213

== ENCOUNTER 2024-08-16 13:55 | Outpatient (AMB) | payer OTHER, SELFPAY ==
--- NOTE | 2024-08-16 13:56 | MHC.OFFVIS ---
Vital Signs 08/16/24 13:57 Height 4 ft 10 in Weight 85 lb BMI 17.8 BP 128/80 Blood Pressure Location Rt brachial Position Sitting Pulse 82 Pulse Source Pulse Oximeter Pulse Oximetry (%) 99 Oxygen Delivery Method Room Air Intake Visit Reasons: colo screening Intake Note: New patient for recall colo screening. Last colo 2020 w/ Dr. Forde CC; C.O. LUQ pain + epigastric pain, constipation and nausea. No evidence of hemo per pt. Pt denies any additional sx or concerns. Pt states omeprazole is definitely still helping as she feels that she would be in the ED without it. 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 She is referred by Dr. Doan. PMX Substance use disorder with history of overdose History of CT Demand ischemia Bipolar disorder/anxiety/PTSD GERD History of left distal fibula fracture Hypothyroid * SURGICAL HISTORY Right foot surgery with hardware Left eye surgery * ALLERGIES: NKDA * [employer]: No recent labs COLONOSCOPY 02/2021 Findings: Terminal Ileum: Not evaluated Cecum:? An 8 to 10 mm sessile polyp adjacent to the appendicular orifice - removed with a cold snare. Ascending Colon:? Normal Transverse Colon:? A 5-6 mm sessile polyp removed with a cold snare. A 12-15 mm sessile polyp removed with hot snare. Descending Colon:? Moderate diverticulosis Sigmoid Colon:? Moderate diverticulosis Rectum:? Normal Ano-rectum:? Normal Colon preparation:? Good after copious irrigation and fair in the right colon with some adherent stools Impression and Post Procedure Diagnosis: Colonoscopy Findings: Three small to medium sized polyps removed Moderate diverticulosis seen in the left colon Plan: Await pathology results Patient has an appointment on 02/19/21 in the GI Clinic with? Nohelia Pires NP. Repeat Colonoscopy interval based on path results - in 3 years if polyps are adenomatous and due to fair prep in the right colon BIOPSY Collected: 02/06/21 Location: [facility] Received: 02/06/21 Diagnosis A.? Colon, cecal polyp:? Tubular adenoma. B.? Colon, transverse, two polyps:? Tubular adenomas (5 of 6 pieces involved). TODAY'S VISIT She is here today with her EDUCATIONAL PROGRAMMING DIRECTOR who is She is suffering some CIC and LUQ pain. She is on omeprazole for her GERD. She has failed senna, miralax, colace, fiber and bisacodyl pills and lactolose. Her stools are very very hard and like [place]. Will trial LInzess 145mcg adn titrate. She denies any prior trouble with anesthesia or sedation. She has had an CT but had a subsequent negative stress test and she denies respiratory problems.? She denies any infectious disease problems. She says that she is a alienated from her family says she really isn't sure there is any history of colon cancer or polyps. [facility] Medical History Screening for colon cancer Screening for cervical cancer Colon cancer screening Annual physical exam Aspiration pneumonia Acidosis, lactic Overdose Acute respiratory failure with hypoxia Generalized anxiety disorder Bipolar illness Posttraumatic stress disorder Acquired hypothyroidism GERD (gastroesophageal reflux disease) Surgical History History of foot surgery History of eye surgery Family History Father HIV (human immunodeficiency virus infection) CKD (chronic kidney disease) Substance use disorder Mother Hepatitis C Bilateral cataracts Maternal Grandmother Diabetes CVD (cardiovascular disease) Brother No problems noted. Brother No problems noted. Brother No problems noted. Sister No problems noted. Other Mental health disorder Social History Household Members Other:: [employer] lives upstairs from her. Housing: Condominium Do you presently have visiting nurse or other home services: Yes (EDUCATIONAL PROGRAMMING DIRECTOR lives upstairs, hours increased to include night hours. 24 hours/week) Alcohol intake: current Alcohol intake frequency: a few times a week Comment: 1:1 sitter SI Patient Tobacco Use Status: Former Tobacco user Tobacco use type: Cigarette e-Cigarette/Vaping Use: Never Used Second Hand Smoke Exposure: Yes (outside only) Substance Use Type: Marijuana service: No Current occupational status: disabled Cognitive needs: Yes (walker) Hearing needs: No Vision needs: No Review of Systems Const Denies fatigue, Denies fever(s), Denies night sweats, Denies poor appetite and Denies weight loss ENT Reports Normal hearing present, Denies dental pain, Denies dysphagia, Denies hearing loss, Denies mouth pain, Denies odynophagia, Denies throat swelling, Denies tongue swelling and Reports other (Dentition adequate) Card Reports no additional complaints Resp Reports no additional complaints GI Details: Reports abdominal pain, Denies melena, Denies bloating, Denies hematochezia, Reports constipation, Denies GI cramping, Denies dysphagia, Denies excessive flatus, Denies early satiety, Reports heartburn, Denies diarrhea, Denies nausea, Denies odynophagia, Denies vomiting and Denies hematemesis Skin/Breast Denies pruritus, Denies lesions, Denies rash and Denies jaundice Neuro Reports Normal hearing present and Denies Abnormal speech present Psych Reports anxiety Endo Denies fatigue Aller/Immun Denies throat swelling and Denies tongue swelling Physical Exam Const General: cooperative, no acute distress, well developed and well groomed Nutritional Appearance: well nourished and underweight Orientation/consciousness: oriented to person, oriented to place and oriented to time Limitations: No language barrier and other limitations (anxiety) HEENT Head: Yes normocephalic and Yes atraumatic Eyes General: appearance normal, both eyes and all related structures Pupils: Equal, round and reactive pupils present Neck Neck: Yes normal visual inspection and Yes no lymphadenopathy Thyroid: Thyroid normal Resp Effort & Inspection: normal respiratory effort and able to speak in complete sentences Auscultation: clear to auscultation bilaterally Cardio Rate: regular rate Rhythm: regular rhythm Heart sounds: Normal, physiologic split S2 sound present Peripheral pulses: radial pulses present and posterior tibial pulses present GI Inspection: No distended and No Abdominal panniculus present Palpation (GI): Soft to palpation, nontender, no guarding, not rigid and No hepatosplenomegaly present Percussion: Yes normal to percussion Auscultation: normal bowel sounds Rectal Exam - Female: deferred Skin General skin exam: no rashes or lesions noted, turgor normal, skin not dry, no jaundice, No spider nevi and no striae Rashes: no rashes Nails: normal Neuro Other: Shuffling gait due to chronic foot injuries/pain General: oriented to person, oriented to place and oriented to time Cranial nerves: Yes Equal, round and reactive pupils present and Yes Normal hearing present Speech: No Abnormal speech present Extrem General: Yes normal to inspection, No clubbing, No cyanosis and No edema Psych Appearance: grossly normal and well kempt Mental Status: mental status grossly normal Speech and movement: Normal speech and movement present Affect: Labile affect present Attitude: cooperative Thought process: Circumstantial thought process present and not confabulating Thought content: Normal thought content present Insight: Limited insight present (Psych) Judgement: Limited judgement present (Psych) Assessment & Plan Assessment & Plan (1) Pre-op examination: Code(s): Z01.818 - Encounter for other preprocedural examination Category: Medical (2) Chronic idiopathic constipation: Code(s): K59.04 - Chronic idiopathic constipation Category: Medical (3) Substance use disorder: Code(s): F19.90 - Other psychoactive substance use, unspecified, uncomplicated Category: Medical (4) Tubular adenoma of colon: Comment: 2020 scope=2 sessile TA's repeat 5 years Code(s): D12.6 - Benign neoplasm of colon, unspecified Category: Medical Plan She is here today with her EDUCATIONAL PROGRAMMING DIRECTOR who is She is suffering some CIC and LUQ pain. She is on omeprazole for her GERD. She has failed senna, miralax, colace, fiber and bisacodyl pills and lactolose. Her stools are very very hard and like [place]. Will trial LInzess 145mcg adn titrate. She denies any prior trouble with anesthesia or sedation. She has had an CT but had a subsequent negative stress test and she denies respiratory problems.? She denies any infectious disease problems. She says that she is a alienated from her family says she really isn't sure there is any history of colon cancer or polyps. Orders: Orders Comprehensive Met. Panel Today K59.04 - Chronic idiopathic constipation Complete Blood Count Auto Diff Today K59.04 - Chronic idiopathic constipation Colonoscopy - GI Use Only Today K59.04 - Chronic idiopathic constipation Medications: New peg 3350-electrolytes 236-22.74-6.74 -5.86 gram (Golytely) until fecal effluent is clear; do not exceed a total volume of 2,000 mL 240 mL PO Q10M 1 day 4,000 mL 0RF Z12.11 - Encounter for screening for malignant neoplasm of colon linaclotide (Linzess) Take first thing in the morning with a full glass of water. 145 mcg PO QAM 30 caps 3RF K58.1 - Irritable bowel syndrome with constipation bisacodyl (Dulcolax (bisacodyl)) 10 mg (2 x 5 mg) PO BEDTIME 2 days 4 tabs 0RF Coding Level of Care Code New Pt Level 3 (71845) Diagnoses Pre-op examination Z01.818 Chronic idiopathic constipation K59.04 Substance use disorder F19.90 Tubular adenoma of colon D12.6
[2024-08-16 13:57] VITALS: BP 128/80; PULSE 82; O2SAT 99; BMI 17.8
--- OUTSIDE RECORDS SUMMARY | 2024-08-16 16:24 | XMS_ITS ---
Author Organization [facility] Address [address] [place] [address] Care Team Providers Care Charhouse Worker Name Role Phone Devaughn Doan Primary Care Provider Daija Lynch [phone] Encounters Encounter Location Date Provider Diagnosis [facility] [address] [place] [address] 07/05/2023 Daija Lynch Plan Of Treatment No Information Progress Notes * Racheal MEYERDOB:1965 ([age] yo F)Acc No.[id number]:07/05/2023 Progress Notes Patient:?Racheal MEYER Provider:?Daija Lynch DPM :1965???Age:57 Y???Sex:Female D ate:07/05/2023 Address:[address] [place], [place] [id number] Pcp:Devaughn Doan Subjective: * Chief Complaints: * ??? * Medical History:? Objective: * Vitals:? Assessment: Plan: * Treatment: * Images: * The named appointment provid er may or may not be the originator of this progress note, and it is not deemed complete until electronically signed by the appointment provider. Sign off status: Pending * Provider:?Daija Lynch DPM Date:? Generated for Bentley landrum/Robin/Blairitting on:?08/16/2024 04:24 PM EDT
== END 2024-08-16 14:27 | disposition home or self-care (01) ==
LOC: HO.HGI 13:56
PROVIDERS: PCP Internal Medicine; Visit Provider Nurse Practitioner
DX: Z86.0100 Personal history of colon polyps, unspecified (principal); Z01.818 Encounter for other preprocedural examination; Z12.11 Encounter for screening for malignant neoplasm of colon; K59.04 Chronic idiopathic constipation
CPT/HCPCS: 99203

== ENCOUNTER → 2024-08-16 13:55 | Outpatient (BNVA) | payer OTHER, SELFPAY | PROVIDERS: PCP Internal Medicine; Visit Provider Nurse Practitioner | DX: Z01.818 Encounter for other preprocedural examination (principal); K59.04 Chronic idiopathic constipation; K58.1 Irritable bowel syndrome with constipation; F19.90 Other psychoactive substance use, unspecified, uncomplicated; D12.6 Benign neoplasm of colon, unspecified | CPT/HCPCS: 99202 ==

== ENCOUNTER 2024-09-13 14:10 | Outpatient (AMB) | payer OTHER, SELFPAY ==
--- OUTSIDE RECORDS SUMMARY | 2023-07-05 09:00 | XMS_ITS ---
Author Organization [facility] Address [address] [place] [address] Care Team Providers Care Organ Installer Name Role Phone Devaughn Doan Primary Care Provider Daija Lynch [phone] Encounters Encounter Location Date Provider Diagnosis [facility] [address] [place] [address] 07/05/2023 Daija Lynch Plan Of Treatment No Information Progress Notes * Racheal MEYERDOB:1965 ([age] yo F)Acc No.[id number]:07/05/2023 Progress Notes Patient: Racheal YU Provider: Nicol Lynch DPM :1965 A ge:57 Y S ex:Female Date:07/05/2023 Address:[address] [place], [place] [id number] Pcp:Devaughn Doan Subjective: * Chief Complaints: * * Medical History: Objective: * Vitals: Assessment: Plan: * Treatment: * Images: * The named appointment provid er may or may not be the originator of this progress note, and it is not deemed complete until electronically signed by the appointment provider. Sign off status: Pending * Provider: Nicol Lynch DPM Date: 07/05/2023 Generated for Bentley landrum/Robin/Blairitting on: 09/13/2024 02:21 PM EDT
[2024-09-13 14:14] VITALS: BP 92/64; PULSE 97; TEMP 36.3; O2SAT 98; BMI 17.6
--- NOTE | 2024-09-13 14:14 | A.OFFPC_ITS ---
Vital Signs 09/13/24 14:14 Height 4 ft 10 in Weight 84 lb 2 oz BMI 17.6 BP 92/64 Blood Pressure Location Lt brachial Position Sitting Pulse 97 Pulse Source Pulse Oximeter Temp 97.3 F Temp Source Temporal Artery Scan Pulse Oximetry (%) 98 Oxygen Delivery Method Room Air Intake Visit Reasons: annual exam - see comments Retort Unloader Required: No Accompanied by: Self / Same As Patient Allergies hair dye Allergy (Unknown, Verified 09/13/24 14:15) Unknown Tobacco use date assessed: 09/13/24 Dental Screening Dental Screen Date: 09/13/24 Did you have a dental visit in the last 12 months?: Yes Did you have a dental problem in the last 6 months where you did not have access to dental care?: No Was dental information given to patient?: Patient has dentist [facility] Medical History (Updated 08/16/24 @ 14:24 by IAIN Tejada) Screening for colon cancer Screening for cervical cancer Colon cancer screening Annual physical exam Aspiration pneumonia Acidosis, lactic Overdose Acute respiratory failure with hypoxia Generalized anxiety disorder Bipolar illness Posttraumatic stress disorder Acquired hypothyroidism GERD (gastroesophageal reflux disease) Surgical History History of colonoscopy (~02/06/21) History of foot surgery History of eye surgery Family History Father HIV (human immunodeficiency virus infection) CKD (chronic kidney disease) Substance use disorder Mother Hepatitis C Bilateral cataracts Maternal Grandmother Diabetes CVD (cardiovascular disease) Brother No problems noted. Brother No problems noted. Brother No problems noted. Sister No problems noted. Other Mental health disorder Social History Household Members Other:: [employer] lives upstairs from her. Housing: Condominium Do you presently have visiting nurse or other home services: Yes ([employer] lives upstairs, hours increased to include night hours. 24 hours/week) Alcohol intake: current Alcohol intake frequency: a few times a week Comment: 1:1 sitter SI Patient Tobacco Use Status: Former Tobacco user Tobacco use type: Cigarette e-Cigarette/Vaping Use: Never Used Second Hand Smoke Exposure: Yes (outside only) Substance Use Type: Marijuana service: No Current occupational status: disabled Cognitive needs: Yes (walker) Hearing needs: No Vision needs: No Questionnaire Thrive Questionnaire Date Thrive assessed: 05/12/23 EDWARD-7 AMB Questionnaire EDWARD-7 Date EDWARD - 7 assessed: 10/10/23 Source: Developed by Drs. David Salazar, Tamara Grider, Mendoza Nolan and colleagues, with an educational laurie from [employer]. Physical exam (Primary Care) Vital Signs: Last Vital Signs Temp 97.3 F 09/13/24 14:14 Pulse 97 09/13/24 14:14 BP 92/64 09/13/24 14:14 Pulse Ox 98 09/13/24 14:14 Oxygen Delivery Method Room Air 09/13/24 14:14 BMI result Body Mass Index 17.6 Tobacco/Smoking Status: Tobacco use Status Tobacco use date assessed 09/13/24 09/13/24 14:15 Patient Tobacco Use Status Former Tobacco user 09/13/24 14:15 Tobacco use type Cigarette 09/13/24 14:15 e-Cigarette/Vaping Use Never Used 09/13/24 14:15 Thrive Assessment: Date of Thrive Assessment Date Thrive assessed 05/12/23 09/13/24 14:15 Coding Level of Care Code New Pt Prev Care 18-39yr([id number] Diagnoses Generalized anxiety disorder F41.1 Annual physical exam Z00.00 Assessment & Plan Assessment & Plan (1) Generalized anxiety disorder: Code(s): F41.1 - Generalized anxiety disorder Category: Medical Plan: Continue Current Medications (2) Annual physical exam: Code(s): Z00.00 - Encounter for general adult medical examination without abnormal findings Plan: Fasting bw ordered. Mammogram ordered. Scheduled for a colonoscopy. Patient sees a psyc MD for her extensive mental health issues Plan History of Present Illness - The patient is a 58-year-old female presenting with anxiety and concerns about her upcoming colonoscopy and mammogram. - Anxiety: The patient reports feeling very scared and anxious about her health and upcoming procedures. - Hyperlipidemia: The patient mentioned needing to check her cholesterol levels, indicating a history of hyperlipidemia. - Preventative care: The patient is scheduled for a colonoscopy in October due to previous findings of three lesions, which has reduced the interval from five years to three years. - Preventative care: The patient is also scheduled for a mammogram in October. Social History Review of Systems - Psychiatric: Reports feeling very scared and anxious about health and upcoming procedures. Physical Exam General: Cooperative and healthy appearing Nutritional Appearance: Well nourished Orientation/consciousness: Patient oriented x3 Limitations: No limitations Head: Normal to inspection General: Appearance normal, both eyes and all related structures Neck: Normal visual inspection Chest: Normal palpation of entire chest wall Respiratory: Patient reports feeling scared and has been falling. ormal respiratory effort Neurology: Patient oriented x3 Results Plan 1. Anxiety - Continue current medications including Ativan, hydroxyzine, and Zoloft. 2. Hyperlipidemia - Order blood work to check cholesterol levels. 3. Preventative Care: Colonoscopy - Schedule colonoscopy in October due to previous findings of three lesions. 4. Preventative Care: Mammogram - Schedule mammogram in October. Discussion Notes During the visit, we discussed the patient's anxiety and the importance of continuing her current medications, including Ativan, hydroxyzine, and Zoloft. We also reviewed the need for blood work to monitor cholesterol levels and confirmed the scheduling of her colonoscopy and mammogram in October. The patient was advised to proceed with these preventative screenings as planned. Patient Instructions - Continue taking prescribed medications: Ativan, hydroxyzine, and Zoloft. - Complete blood work for cholesterol levels as ordered. - Attend scheduled colonoscopy and mammogram appointments in October. Orders: Orders Thyroid Stimulating Hormone Today F41.1 - Generalized anxiety disorder UA and rflx microscopic Today F41.1 - Generalized anxiety disorder MM screening mammo BI Today Z12.31 - Encounter for screening mammogram for malignant neoplasm of breast Basic Metabolic Panel Today F41.1 - Generalized anxiety disorder Complete Blood Count no Diff Today F41.1 - Generalized anxiety disorder Lipid Panel Today F41.1 - Generalized anxiety disorder Liver Panel Today F41.1 - Generalized anxiety disorder
== END 2024-09-13 16:12 | disposition home or self-care (01) ==
LOC: HO.HMCH 14:10
PROVIDERS: PCP Internal Medicine; Visit Provider Internal Medicine
DX: F41.1 Generalized anxiety disorder (principal); Z00.00 Encounter for general adult medical examination without abnormal findings

== ENCOUNTER → 2024-09-13 14:10 | Outpatient (BNVA) | payer OTHER, SELFPAY | PROVIDERS: PCP Internal Medicine; Visit Provider Internal Medicine | DX: Z00.00 Encounter for general adult medical examination without abnormal findings (principal); F41.1 Generalized anxiety disorder; E78.5 Hyperlipidemia, unspecified | CPT/HCPCS: 99386 ==

== ENCOUNTER 2025-01-17 14:27 | Outpatient (AMB) | payer OTHER, SELFPAY ==
--- NOTE | 2025-01-17 14:38 | A.OFFPC_ITS ---
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 Coach: Not Required per policy Accompanied by: Self / Same As Patient Allergies hair dye Allergy (Unknown, Verified 01/17/25 14:39) Unknown Tobacco use date assessed: 01/17/25 Dental Screening Dental Screen Date: 09/13/24 [facility] Medical History (Updated 08/16/24 @ 14:24 by IAIN Tejada) Screening for colon cancer Screening for cervical cancer Colon cancer screening Annual physical exam Aspiration pneumonia Acidosis, lactic Overdose Acute respiratory failure with hypoxia Generalized anxiety disorder Bipolar illness Posttraumatic stress disorder Acquired hypothyroidism GERD (gastroesophageal reflux disease) Surgical History History of colonoscopy (~02/06/21) History of foot surgery History of eye surgery Family History Father HIV (human immunodeficiency virus infection) CKD (chronic kidney disease) Substance use disorder Mother Hepatitis C Bilateral cataracts Maternal Grandmother Diabetes CVD (cardiovascular disease) Brother No problems noted. Brother No problems noted. Brother No problems noted. Sister No problems noted. 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 Housing: Condominium Do you presently have visiting nurse or other home services: Yes (CYBER SOFTWARE ENGINEER lives upstairs, hours increased to include night hours. 24 hours/week) Alcohol intake: current Alcohol intake frequency: a few times a week Comment: 1:1 sitter SI Patient Tobacco Use Status: Former Tobacco user Tobacco use type: Cigarette e-Cigarette/Vaping Use: Never Used Second Hand Smoke Exposure: Yes (outside only) Substance Use Type: Marijuana service: No Current occupational status: disabled Cognitive needs: Yes (walker) Hearing needs: No Vision needs: No Questionnaire PHQ-9 Over the last 2 weeks, how often have you been bothered by any of the following problems? 1. Little interest or pleasure in doing things: nearly every day 2. Feeling down, depressed, or hopeless: nearly every day 3. Trouble falling or staying asleep, or sleeping too much: nearly every day 4. Feeling tired or having little energy: nearly every day 5. Poor appetite or overeating: nearly every day 6. Feeling bad about yourself - or that you are a failure or have let yourself or your family down: nearly every day 7. Trouble concentrating on things, such as reading the newspaper or watching television: more than half the days 8. Moving or speaking so slowly that other people could have noticed. Or the opposite - being so fidgety or restless that you have been moving around a lot more than usual: several days 9. Thoughts that you would be better off or of hurting yourself in some way: not at all Total score: 21 Depression Screening Interpretation: Positive Depression Screening Done: Yes Source: Developed by Drs. David Salazar, Tamara Grider, Mendoza Nolan and colleagues, with an educational laurie from [employer]. Thrive Questionnaire Date Thrive assessed: 01/17/25 I am a: Patient What is your living situation today?: I have a steady place to live Within the past 12 months, did the food you bought not last and you didn't have the money to get more?: I choose not to answer this question Within the past 12 months, did you worry whether your food would run out before you got money to buy more?: I choose not to answer this question Do you have trouble paying for medicines?: No Do you have trouble getting transportation to medical appointments?: No Do you have trouble paying your heating and electricity bill?: No Do you have trouble taking care of your child, family member or friend?: I choose not to answer this question Do you have trouble with day-to-day activities such as bathing, preparing meals, shopping, managing finances, etc.?: I choose not to answer this question Are you currently unemployed and looking for a job?: I choose not to answer this question Are you interested in more education?: I choose not to answer this question Please select the resources that you would like help with: None Currently or been in a relationship where the following occur: I choose not to answer THRIVE Score: 0 AUDIT C Alcohol Use Questionnaire (AUDIT-C) 1. How often do you have a drink containing alcohol?: Monthly or less 2. How many drinks containing alcohol do you have on a typical day when you are drinking?: 1 or 2 3. How often do you have six or more drinks on one occasion?: Never Total Score: 1 EDWARD-7 AMB Questionnaire EDWARD-7 Date EDWARD - 7 assessed: 01/17/25 Feeling nervous, anxious, or on edge: 3 = Nearly every day Not being able to stop or control worryin = Nearly every day Worrying too much about different things: 3 = Nearly every day Trouble relaxin = Nearly every day Being so restless that it is hard to sit still: 2 = More than half the days Becoming easily annoyed or irritable: 3 = Nearly every day Feeling afraid as if something awful might happen: 3 = Nearly every day Total EDWARD-7 score (0-4 normal; 5-9 mild; 10-14 moderate; 15-21 severe): 20 Source: Developed by Drs. David Salazar, Tamara Grider, Mendoza Nolan and colleagues, with an educational laurie from [employer]. Physical exam (Primary Care) Vital Signs: Last Vital Signs Temp 96.9 F 01/17/25 14:40 Pulse 88 01/17/25 14:40 BP 100/70 01/17/25 14:40 Pulse Ox 96 01/17/25 14:40 Oxygen Delivery Method Room Air 01/17/25 14:40 BMI result Body Mass Index 18.7 Tobacco/Smoking Status: Tobacco use Status Tobacco use date assessed 01/17/25 01/17/25 14:47 Patient Tobacco Use Status Former Tobacco user 01/17/25 14:47 Tobacco use type Cigarette 01/17/25 14:47 e-Cigarette/Vaping Use Never Used 01/17/25 14:47 PHQ-9: PHQ-9 Score PHQ-9: Total score 21 01/17/25 15:09 Depression Screening Interpretation: Positive Thrive Assessment: Date of Thrive Assessment Date Thrive assessed 01/17/25 01/17/25 14:47 Currently or been in a relationship where the following occur: I choose not to answer Office Procedures Flu Questionnaire Does the patient have a severe egg allergy?: No Does the patient have severe life threatening allergies?: No Does the patient have a fever or illness today?: No Has the patient ever had Guillain-[place] Syndrome?: No Has the patient ever had any past reaction to a flu shot?: No Immunizations Fluarix [id number] (PF) 45 mcg (15 mcg x 3)/0.5 mL IM syringe Performing Provider: Devaughn Doan MD [facility] Administered by: Dasia Hassan RN on 01/17/25 15:03 Dose Route Admin Location Dispensed Lot Number Expiration Date NDC Heddler Tier 0.5 mL IM Left Deltoid 0.5 mL [id number] 09/03/25 [id number] [employer] VIS Given Date VIS Provided VIS Publication Date 01/17/25 Single Vaccine 24 Eligibility Eligibility Date Funding Source Not [facility] Eligible 01/17/25 Private Coding Level of Care Code Est Pt Level 4 (78009) Diagnoses Other closed fracture of distal end of left fibula, initial encounter S82.832A Encounter type: initial encounter Fracture morphology: other fracture Assessment & Plan Assessment & Plan (1) Closed fracture of left distal fibula: Code(s): S82.832A - Other fracture of upper and lower end of left fibula, initial encounter for closed fracture Category: Medical Qualifiers: Encounter type: initial encounter Fracture morphology: other fracture Qualified Code(s): S82.832A - Other fracture of upper and lower end of left fibula, initial encounter for closed fracture Plan History of Present Illness - The patient is a 59-year-old female presenting for evaluation of chronic foot pain and health maintenance. - She reports her foot hurts a lot, which she attributes to surgical screws that she can feel, with the pain worsening in cold weather. - The pain was severe enough to cause her to miss her appointment yesterday. - The patient also reports an episode of vomiting the previous day. - She is taking gabapentin. - For health maintenance, the patient needs to have fasting blood work done. - She has a colonoscopy scheduled for January and a mammogram scheduled for February. Social History - Substance Use: The patient reports smoking marijuana and denies using any other substances. Review of Systems - Gastrointestinal: Reports vomiting yesterday. - Musculoskeletal: Reports significant pain in her foot, associated with prior surgical screws. - Psychiatric: Reports crying, which exacerbates pain. Physical Exam General: Cooperative and healthy appearing Nutritional Appearance: Well nourished Orientation/consciousness: Patient oriented x3 Limitations: No limitations Head: Normal to inspection General: Appearance normal, both eyes and all related structures Neck: Normal visual inspection Chest: Normal palpation of entire chest wall Respiratory: N ormal respiratory effort Neurology: Patient oriented x3, reports foot pain due to screws, possibly affected by weather changes. Results Plan - Will prescribe a cream for foot pain. - Will place a referral to Podiatry for evaluation of foot pain and nail care. - Administered influenza vaccine in-office. - Will order a mammogram, though the patient reports one is already scheduled for February. - The patient will proceed with her scheduled colonoscopy in January. - The patient needs to complete fasting blood work. Discussion Notes I discussed the management plan for the patient's foot pain, which includes a referral to a vinyl welder and fabricator for further evaluation and a topical cream for symptomatic relief. We reviewed her health maintenance schedule, and I encouraged her to attend her upcoming colonoscopy in January and mammogram in February. The patient consented to and received an influenza vaccine today. I clarified that she can have water or black coffee before her fasting blood work. We also discussed her substance use, and she denied using anything other than marijuana. Patient Instructions - A referral will be sent for you to see a vinyl welder and fabricator (foot doctor) for your foot pain. - A cream will be prescribed to help with your foot pain. - You received your flu shot today. - Please get your fasting blood work done. - Keep your appointment for your colonoscopy in January and your mammogram in February. Orders: Orders Influenza [id number] Immunization 01/17/25 Z23 - Encounter for immunization Medications: Refilled linaclotide (Linzess) Take first thing in the morning with a full glass of water. 145 mcg PO QAM 30 caps 3RF K58.1 - Irritable bowel syndrome with constipation efinaconazole 10% Apply to toenail 1 appl topical BEDTIME 4 mL 0RF 2 months
[2025-01-17 14:40] VITALS: BP 100/70; PULSE 88; TEMP 36.1; O2SAT 96; BMI 18.7
--- OUTSIDE RECORDS SUMMARY | 2025-01-17 17:53 | XMS_ITS | Data Portability ---
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 Unable to bear weight. Ankle markedly swollen and ecchymotic on exam. Given inability to ambulate and external appearance of the ankle significant concern for fracture. Patient transported to ED for further evaluation and management. [email or web address] Not available 11/04/2023 13:07:01 12/06/2023 12/06/2023 I provided real -time medical direction via phone for this encounter, and was available for additional phone based assistance as needed. I have reviewed and agree with the Assessment and Plan as documented by the Livestock Buyer. We discussed the diagnostic uncertainty of home visits and the risk associated with this. The patient given the opportunity to ask questions. [email or web address] Not available 12/06/2023 16:02:56 Plan of Treatment Reminders Order Date Submit Date Provider Last Modified By Organization Details Last Modified Time Details Appointments None record ed. Lab None record ed. Referral None record ed. Procedures None record ed. Surgeries None record ed. Imaging None record ed. Medication Orders None record ed. Patient TargetsNo targets recorded. Patient Instructions Encounter Date Encounter Id Patient Instructions Last Modified By Organization Details Last Modified Time 12/06/2023 [id number] ice packs [email or web address] Not available 03/2023 17:06:08 Reason for Referral None Reported. Medical Equipment None Reported. Allergies No known drug allergies Medications Name Sig Start Date Stop Date Status Note LastModified by Organization Details LastModified Time atorvastatin 80 mg tablet active Not Available Not Available No t Available sertraline 100 mg tablet active Not Available Not Available No t Available hydroxyzine pamoate 50 mg capsule active Not Available Not Available Not Available oxcarbazepine 300 mg tablet active Not Available Not Availabl e Not Available levothyroxine 75 mcg tablet active Not Available Not Available N ot Available omeprazole 20 mg capsule,delayed release active Not Available Not Available Not Available aspirin 81 mg chewable tablet active Not Available Not Availa ble Not Available hydrocortisone 2.5 % topical cream active Not Available Not Available Not Available mupirocin 2 % topical ointment active Not Available Not Avail able Not Available gabapentin 100 mg capsule active Not Available Not Available N ot Available lorazepam 1 mg tablet active Not Available Not Available Not Available quetiapine 50 mg tablet active Not Available Not Available Not Available quetiapine 400 mg tablet active Not Available Not Available No t Available Vitals Date Recorded Heart rate Body temperature Oxygen saturation Oxygen saturation in Arterial blood by Pulse oximetry Body weight Respiratory rate Body height Systolic And Diastolic Provider Name and Address Organization Details Last Updated DateTime 4 96 /min 98.4 [degF] 98 % 98 % 53944 g 18 /min 152.4 cm 142/90 mm[Hg] Not Available [facility] 4 15:25:04 Date Recorded Heart rate Body height Oxygen saturation Oxygen saturation in Arterial blood by Pulse oximetry Respiratory rate Body weight Body temperature Systolic And Diastolic Provider Name and Address Organization Details Last Updated DateTime 4 80 /min 152.4 cm 98 % 98 % 14 /min 58696 g 98.4 [degF] 112/72 mm[Hg] Not Available [facility] 4 15:49:27 Social History None recorded. Functional Status None recorded. Mental Status None recorded. Family History Nothing Reported. Medical History No medical history recorded. Gynecological HistoryNo gynecological history recorded. Obstetrics History GPAL:G 0 P 0 0 0 0 Past Encounters Encounter ID Performer Location Encounter Start Date Encounter Closed Date Diagnosis/Indication Diagnosis SNOMED-CT Code Diagnosis ICD10 Code Diagnosis IMO Codes Diagnosis Note [id number] Jose Jackson MD [facility] [address] [place] [id number] 11/03/2023 15:24:52 11/04/2023 21:50:06 Swelling of ankle joint [id number] M25.472 [id number] Lauren Cardona MD [facility] [address] [place] [address] 12/06/2023 15:49:24 12/06/2023 21:56:10 Pain of right ankle joint [id number] M25.571 s/p twisting sprain vs fx. Pat has no one to drive her to / wants to go to the [place] [facility] for xray via EMS-our service does not do mobile x-ray nor do we have splinting. I requested the medic put an ice pack on it-he called EMS for her and I called report to the ER. I did explain to the patient that they would be glad to see her but there is going to be a wait. She verbalized understand ing Health Concerns Section Related Observation LastModified by Organization Detai ls LastModified Time None Recorded Concern Status LastModified by Organization Details LastModified Time None Recorded Advance Directives Directive None Recorded Payers Insurance Date Sequence Insurance Name Policy Number Policy Smalls Covered Member ID Smalls Member ID Guarantor Name 12/07/2023 1 [facility] - DOS ON OR AFTER 2022 - DUAL ELIGIBLE - SHELTER OPTIONS AND ONE CARE (MEDICARE REPLACEMENT/ADV ANTAGE - HMO) Racheal Meyer [id number] Racheal Meyer Notes Date Note Type Note Provider Name and Address Organization Details Recorded Time 11/03/2023 text/html HPI: Lakia MCKAY calling in with member on the line. Member identified via name and . Member had a fall 2 hours ago, nothing exacerbated the fall, per member, I have two left feet sometimes . Member denies head strike, no LOC and does not take any blood thinners. Per member her left ankle is very swollen, red and bruised, and she is unable to bear weight on it, her left knee is also affected, but only mildly swollen. Member encouraged to ice and elevated, however, the weight from the ice pack increased the pain. Member unable to take tylenol due to a past OD, has not taken on IBU. Member otherwise asymptomatic, and agreeable to an [facility] visit. .................... .................... .................... .................... .................... .................... .................... . CRC Nurse Triage Notes (Caridad Jerez): Chief Complaints: Falls, Injury PMH: Severe Persistent Mental Illness (SPMI) Comments: CRC RN did not require any additional information to process this visit. .................... .................... .................... .................... .................... .................... .................... . Livestock Buyer Note From Clive Smyth: Patient alert and oriented laying in bed. Patient states she twisted from standing feeling pain in her left foot. Patient said she didn t fall, but it was lowered into the bed. Patient states she has had surgery on her right ankle in the past. Patient says she s unable to bear weight on foot. Patient denies any other pain or complaints. Patient pink warm and dry secondary exam unremarkable. Left outer ankle appears swollen, black and blue. Good CSM in left foot. Pictures of left ankle to [facility]. [facility] agrees with this medic and advises patient to be transported to hospital for x-rays and treatment.Patient agrees, 911 system activated. Report to EMS on scene.Consent uploaded. .................... .................... .................... .................... .................... .................... .................... . 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 .................... .................... .................... .................... .................... .................... . CRC Nurse Triage Notes (Rocio Waters): Chief Complaints: Pain PMH: Severe Persistent Mental Illness (SPMI) Comments: PMH: Major depression disorder, Schizophrenia, Anixety, Incontinent Sustained injury to lower extremity s/p fall in home 3 weeks ago. Reports fracture to lower extremity. Unknown which foot. Reported that patient has not been wearing cast as directed and is now experiencing increased pain. Patient is not following up with instructions. Lives alone. Has a DRIP MOLDER who lives in building. .................... .................... .................... .................... .................... .................... .................... . Livestock Buyer Note From Clive Smyth: Alert times three seated on stoop in front of building. Patient complains of right ankle pain times six days. She twisted and felt pain. Patient has had reconstructive surgery on that ankle in the past. She has been weight-bearing since incident due to left ankle injury as well. Patient states she expected ambulance to arrive to take her to hospital for x-ray. Patient requests ambulance.Right ankle, swollen, discolored, with good circulation sensation. [facility] calls in expect report to [facility]. Pro Breath MD system activated patient to ED via [employer]. Report to EMS on scene. Patient refuses ice pack or wrap. .................... .................... .................... .................... .................... .................... .................... . Disposition: Fulfilled SEGMD: Patient seen by our service 11/02 with left ankle injury-swelling and pain was referred to the ER. The chart states she is unable to take APAP due to a prior OD. She was put in a boot but does not know the extent of the injury. Last Tuesday she twisted her right ankle and is having a lot of pain with movement and weightbearing and is requesting an x-ray. She reports she went to the [place] ER yesterday but left without being seen. Lauren Cardona MD [address] [facility],[address], [place], [phone], [employer] 12/06/2023 17:06:21 OBGyn Episode No OBEpisode recorded.
== END 2025-01-17 15:11 | disposition home or self-care (01) ==
LOC: HO.HMCH 14:28
PROVIDERS: PCP Internal Medicine; Visit Provider Internal Medicine
DX: Z23 Encounter for immunization (principal)

== ENCOUNTER 2025-01-17 14:27 | Outpatient (REF) | payer OTHER, SELFPAY ==
[2025-01-17 15:29] LABS: MANUAL DIFF FLAG NO
[2025-01-17 15:44] LABS: Appearance Urine Clear; Glucose Urine UA Negative (Negative); PH 6.0 (5.0-9.0); Specific Gravity - Urine 1.025 (1.005-1.025); UMIC TRIGGER UA YES
[2025-01-17 15:51] LABS: Hematocrit 38.7 % (37.0-47.0); Hemoglobin 12.7 g/dl (12.0-16.0); Imm Gran Abs Auto 0.05 X10*3/uL (0.00-0.03); Imm Gran Pct Auto 0.5 % (0.0-0.4); Lymphocytes Absolute Auto 2.6 X10*3/uL (1.2-4.9); Mean Corpuscular HGB Conc 32.8 g/dl (31.0-35.0); Mean Corpuscular Hemoglobin 28.3 pg (27.0-33.0); Mean Corpuscular Volume 86.4 fL (80.0-98.0); NRBC Abs Auto 0.000 X10*3/uL (0.0-0.012); NRBC Pct Auto 0.0 /100WBC (0.0-0.2); Platelet Count 326 X10*3/uL (160-400); Red Blood Count 4.48 X10*6/uL (4.20-5.50); White Blood Count 10.6 X10*3/uL (4.8-10.8)
[2025-01-17 16:08] LABS: Alanine Aminotransferase 128 U/L (0-31); Albumin Level 4.7 g/dL (3.5-5.0); Alkaline Phosphatase 179 U/L (39-117); Anion Gap 13 (12-20); Aspartate Amino Transferase 112 U/L (5-31); Blood Urea Nitrogen 16 mg/dL (9-16); Calcium 9.2 mg/dL (8.4-10.2); Carbon Dioxide 23 mmol/L (22-29); Chloride 108 mmol/L (96-108); Cholesterol 190 mg/dL (<200); Estimated Glomerular Filt Rate > 60; HDL Cholesterol 95 mg/dL (>40); Potassium 3.8 mmol/L (3.3-5.1); Sodium 140 mmol/L (135-145); Total Protein 8.6 g/dL (6.5-8.0); Triglycerides 84 mg/dL (<150)
[2025-01-17 16:21] LABS: Thyroid Stimulating Hormone 3.53 uIU/mL (0.32-4.0)
== END 2025-01-17 14:28 | disposition home or self-care (01) ==
LOC: HO.LAB 14:27
PROVIDERS: Nurse Practitioner; PCP Internal Medicine; Visit Provider Internal Medicine
DX: K58.1 Irritable bowel syndrome with constipation (principal); K59.04 Chronic idiopathic constipation; F41.1 Generalized anxiety disorder; M79.672 Pain in left foot; S82.832A Other fracture of upper and lower end of left fibula, initial encounter for closed fracture; S82.832D Other fracture of upper and lower end of left fibula, subsequent encounter for closed fracture with routine healing; X58.XXXD Exposure to other specified factors, subsequent encounter; Z23 Encounter for immunization
CPT/HCPCS: 36415; 80053; 80061; 81001; 82248; 84443; 85025; 90471; 90656; 96127; 99212